=== PATIENT | male | born 1935 | race Caucasian/White ===

== ENCOUNTER 2017-09-22 08:25 | Emergency (ER) | payer OTHER ==
[~2017-09-22] VITALS: Ht 157.5 cm; Wt 70.1 kg
[2017-09-22 08:30] VITALS: Ht 157.5 cm; Wt 70.1 kg
--- NOTE | 2017-09-22 09:00 | EMERGENCY ROOM VISIT NOTE ---
History Report prepared by Robert: Brandin Schmitz Under the Supervision of: Dr. Papo Najera D.O. First contact with patient: 08:29 Chief Complaint: LACERATION/CUT (SUT/DERMABOND) Stated Complaint: FALL/LACERATION ON EAR History of Present Illness The patient is an 82 year old male who presents to the Emergency Room with complaints of constant bleeding to the right ear beginning prior to arrival. He currently rates his discomfort a 1/10 in severity. The patient states he fell out of bed and hit his ear on his dresser. He reports he takes a daily aspirin, and his tetanus shot is up to date. The patient notes he did not hit any other part of his body or loss consciousness. He uses a walker to get around. He denies a history of smoking. Source of History: patient Onset: prior to arrival Position: ear (right) Symptom Intensity: 1/10 Quality: other (bleeding) Timing: constant Note: Denies: hitting any other part of his body, taking a blood thinner other than aspirin, a history of smoking Review of Systems See HPI for pertinent positives & negatives. A total of 6 systems reviewed and were otherwise negative. Past Medical & Surgical Medical Problems: (1) Diabetes Family History Cancer Diabetes mellitus Lung disease Social History Smoking Status: Never Smoker Alcohol Use: none Occupation Status: retired Allergies Uncoded Allergies: IVP (Adverse Reaction, WARM FEELING, 07/18/12) Physical Exam Vital Signs Date Time Temp Pulse Resp B/P (MAP) Pulse Ox O2 Delivery O2 Flow Rate FiO2 09/22/17 08:30 93 16 137/91 96 Room Air Physical Exam CONSTITUTIONAL/VITAL SIGNS: Reviewed / noted above. GENERAL: Non-toxic in appearance. INTEGUMENTARY: Warm, dry, and [place]. HEAD: Normocephalic. EYES: without scleral icterus or trauma. ENT/OROPHARYNX: clear and moist. 2.6 cm laceration involving the right ear scaphoid fossa and helix LYMPHADENOPATHY/NECK: Is supple without lymphadenopathy or meningismus. EXTREMITIES: Warm and well perfused. NEUROLOGICAL: Intact without focal deficits. PSYCHIATRIC: normal affect. MUSCULOSKELETAL: Normally developed with good muscle tone. Medical Decision & Procedures Procedure Location: Right ear Total length: 2.6 cm Complexity: simple Verbal consent was obtained after the risks and benefits were explained, including but not limited to bleeding, scarring, infection, pain, and bone/joint /nerve damage. At this time, the risks of the procedure are less than the risks of NOT performing the procedure. A time out was taken and the correct patient and site identified. 5.0 absorbable vicryl continuous suture was used to approximate the right ear laceration/avulsion. Approximately 8 throws were used with good approximation of the wound. Bacitracin was applied. A sterile dressing was applied. Detailed wound care instructions and signs and symptoms of infection reviewed with the patient and his brother. No complications and the patient tolerated the procedure well. ED Course 829: Previous medical records were reviewed. The patient was evaluated in room A10. A complete history and physical examination was performed. A laceration repair was performed. Please refer to the procedure note for more information. After the laceration, I discussed the results and findings with the patient. He verbalized agreement of the treatment plan. The patient was discharged home. Medical Decision Differential includes close head injury, intracranial bleed, facial trauma, cervical spine trauma, chest and thoracic trauma, abdominal and intra-abdominal trauma, spine neurologic trauma, extremity trauma. This is an 82-year-old male who presents to the ED with a chief complaint of a right ear laceration. The patient states that he was getting out of bed and struck his right ear on a and table. This caused a laceration. It occurred around 2 AM, 7 hours ago. He tried to control the bleeding but was unable to do so. His evaluation reveals an avulsion of the upper ear in the scaphoid fossa and also involves the superior helix. The area of the scaphoid fossa was an avulsion. The skin was replaced over the avulsed area and the wound was approximated with a 5.0 absorbable Vicryl suture because of the confined area. Hemostasis was achieved and a topical antibiotic and dressing conform to the fossa was placed as well as a head dressing to compress the wound in order to avoid hematoma development. The patient was felt to be stable for discharge. He was told to have this rechecked in about one week and any sutures that are in place could be removed. As they're absorbable, if any are difficult to remove, they will dissolve. Medication Reconcilliation Current Medication List: was personally reviewed by me Blood Pressure Screening Patient's blood pressure: Normal blood pressure Blood pressure disposition: Did not require urgent referral Impression Primary Impression: Ear lobe laceration Scribe Attestation The scribe's documentation has been prepared under my direction and personally reviewed by me in its entirety. I confirm that the note above accurately reflects all work, treatment, procedures, and medical decision making performed by me. Departure Information Dispostion Home / Self-Care Referrals Jasmine Elizabeth D.O. (PCP) Forms HOME CARE DOCUMENTATION FORM, IMPORTANT VISIT INFORMATION Patient Instructions My [facility] Additional Instructions Follow-up with your doctor for further care and evaluation in 1-2 days. Return to the emergency department for worsening or new symptoms or any concerns. You have been examined and treated today on an emergency basis only. This is not a substitute for, or an effort to provide, complete comprehensive medical care. It is impossible to recognize and treat all injuries or illnesses in a single emergency department visit. It is therefore important that you follow up closely with your doctor. Call as soon as possible for an appointment. Have sutures evaluated and removed in 7-10 days. Return for any concerns for infection, swelling, increased pain, fevers or other concerns.
[2017-09-22 09:25] VITALS: BP 119/77; PULSE 78; O2SAT 100
== END 2017-09-22 09:26 | disposition home or self-care (01) ==
LOC: C.EDB 08:26 → C.EDA 09:26
DX: S01.311A Laceration without foreign body of right ear, initial encounter (principal); W06.XXXA Fall from bed, initial encounter; W22.8XXA Striking against or struck by other objects, initial encounter; E11.9 Type 2 diabetes mellitus without complications; Z83.3 Family history of diabetes mellitus; Z79.82 Long term (current) use of aspirin

== ENCOUNTER 2021-08-10 22:25 | Inpatient (IN) ==
[2021-08-10] MEDS ORDERED: SODIUM CHLORIDE 0.9% 1000ML 500 ML IV ONE (22:43)
[2021-08-10 23:04] LABS: Basophils # (auto) 0.02 K/uL (0-0.2); Basophils % (auto) 0.2 %; Eosinophils # (auto) 0.13 K/uL (0-0.5); Eosinophils % (auto) 1.3 %; Hematocrit (blood only) 36.9 % (42-52); Hemoglobin 11.6 g/dL (14.0-18.0); Immature Granulocytes # (auto) 0.01 K/uL (0.00-0.02); Immature Granulocytes % (auto) 0.1 %; Lymphocytes % (auto) 13.3 %; Mean Corpuscular Hemoglobin 29.3 pg (25-34); Mean Corpuscular Hgb Conc 31.4 g/dL (32-36); Mean Corpuscular Volume 93.2 fL (80-100); Mean Platelet Volume 11.9 fL (7.4-10.4); Monocytes # (auto) 0.69 K/uL (0.11-0.59); Monocytes % (auto) 7.1 %; Neutrophils # (auto) 7.59 K/uL (1.4-6.5); Platelet Count 197 K/uL (130-400); RDW Standard Deviation 51.8 fL (36.4-46.3); Red Blood Count 3.96 M/uL (4.7-6.1); White Blood Count 9.74 K/uL (4.8-10.8)
[2021-08-10 23:07] LABS: iSTAT Hemoglobin 11.9 g/dl (14.0-18.0); iSTAT Ionized Calcium 1.16 mmol/l (1.12-1.32); iSTAT Potassium 3.9 mmol/L (3.3-5.0)
[2021-08-10 23:16] LABS: Partial Thromboplastin Time 25.9 Seconds (21.0-31.0); Prothrombin Time 10.4 Seconds (9.0-12.0)
[2021-08-10 23:21] LABS: Albumin Level 3.4 gm/dl (3.4-5.0); BUN Creatinine Ratio 16.4 (10-20); Calcium 8.6 mg/dl (8.5-10.1); Creatinine Clr Calc Pharmacy 41.9 ml/min; Est GFR (African American) 73.3 ml/min; Est GFR (Non-African American) 63.2 ml/min; Magnesium 2.1 mg/dl (1.8-2.4)
--- NOTE | 2021-08-10 23:21 | Emergency Department Note ---
History of Present Illness General Chief complaint: Weakness Stated complaint: sore throat, weakness Time Seen by Provider: 08/10/21 22:33 History of Present Illness This 86-year-old presents to the ER complaining of generalized weakness with difficulty walking Location: Generalized Quality: Weak Severity: Moderate. Duration: This morning Timing: This morning Context: Patient and family were concerned and sent him in Modifying factors: better with rest; worse with activity Patient was at a restaurant this morning and collapsed. He states he feels very weak and cannot walk. This is new for him. Family noticed some slurred speech this morning and left-sided facial droop. They sent him in nail greater than 12 hours later for his ongoing symptoms. Apparently he was too weak at home to get out of his chair and the nephew was concerned and they called EMS. Patient denies chest pain, dyspnea, fevers, headache, flulike illness. Patient states his right leg is chronically swollen and this is unchanged. No history of CVA heart attack or heart failure. Home Medications Medication Instructions Recorded Confirmed Type aspirin 81 mg tablet,delayed 81 mg PO DAILY 08/11/21 08/11/21 History release atorvastatin 10 mg tablet 10 mg PO DAILY 08/11/21 08/11/21 History docusate sodium 100 mg capsule 100 mg PO DAILY 08/11/21 08/11/21 History (Colace) erythromycin 5 mg/gram (0.5 %) eye 1 applic OPHTHALMIC (EYE) HS PRN 08/11/21 08/11/21 History ointment famotidine 40 mg tablet 40 mg PO DAILY 08/11/21 08/11/21 History furosemide 40 mg tablet 40 mg PO DAILY 08/11/21 08/11/21 History gabapentin 300 mg capsule 300 mg PO BID 08/11/21 08/11/21 History ketoconazole 2 % shampoo 1 applic TOPICAL .Q3DAYS 08/11/21 08/11/21 History ketoconazole 2 % topical cream 1 applic TOPICAL BID PRN 08/11/21 08/11/21 History meloxicam 15 mg tablet 15 mg PO DAILY 08/11/21 08/11/21 History metformin 1,000 mg tablet 1,000 mg PO UD 08/11/21 08/11/21 History metoprolol tartrate 25 mg tablet 12.5 mg PO BID 11/22/21 11/22/21 History Allergies Allergy/AdvReac Type Severity Reaction Status Date / Time IVP AdvReac Unknown WARM Uncoded 08/11/21 01:46 FEELING Past Med/Surg History Medical History Diabetes High blood pressure Surgical History (Updated 08/10/21 @ 23:16 by Taina Tinsley PA-C) History of appendectomy Social History Smoking Status: Never smoker Feels Safe at Home: Yes Review of Systems A total of 10 systems reviewed and were otherwise negative Physical Exam Vital Signs Vital Signs - 24 hr 08/10/21 22:33 08/10/21 23:20 08/11/21 00:00 Temperature 37 C Temperature Source Oral Pulse Rate 102 H 84 89 Pulse Rate from SpO2 Sensor 83 89 Pulse Rhythm Regular Pulse Strength Normal Respiratory Rate 18 20 19 Respiratory Effort / Characteristics Non-Labored Spontaneous Respiratory Depth Normal Respiratory Pattern Regular Blood Pressure 152/81 H 138/82 152/86 H Blood Pressure Mean 104 100 108 Blood Pressure Position Sitting Pulse Oximetry 94 91 91 Oxygen Delivery Method Room Air Sepsis Recent Fever Within 48 Hours No Sepsis New/Unexplained Change in Mental Status N/A Sepsis Action Taken by Nursing No Action Required 08/11/21 00:10 08/11/21 00:20 08/11/21 00:30 Temperature Temperature Source Pulse Rate 93 H 90 81 Pulse Rate from SpO2 Sensor 91 H 88 82 Pulse Rhythm Pulse Strength Respiratory Rate 21 20 16 Respiratory Effort / Characteristics Respiratory Depth Respiratory Pattern Blood Pressure Blood Pressure Mean Blood Pressure Position Pulse Oximetry 91 91 93 Oxygen Delivery Method Sepsis Recent Fever Within 48 Hours Sepsis New/Unexplained Change in Mental Status Sepsis Action Taken by Nursing 08/11/21 00:40 08/11/21 01:00 08/11/21 01:30 Temperature Temperature Source Pulse Rate 82 76 84 Pulse Rate from SpO2 Sensor 83 77 84 Pulse Rhythm Pulse Strength Respiratory Rate 23 19 21 Respiratory Effort / Characteristics Respiratory Depth Respiratory Pattern Blood Pressure 131/72 Blood Pressure Mean 91 Blood Pressure Position Pulse Oximetry 92 92 93 Oxygen Delivery Method Room Air Sepsis Recent Fever Within 48 Hours Sepsis New/Unexplained Change in Mental Status Sepsis Action Taken by Nursing 08/11/21 01:42 08/11/21 01:50 08/11/21 02:00 Temperature Temperature Source Pulse Rate 88 79 77 Pulse Rate from SpO2 Sensor Pulse Rhythm Pulse Strength Respiratory Rate 24 14 1 L Respiratory Effort / Characteristics Respiratory Depth Respiratory Pattern Blood Pressure 130/68 Blood Pressure Mean 88 Blood Pressure Position Pulse Oximetry Oxygen Delivery Method Sepsis Recent Fever Within 48 Hours Sepsis New/Unexplained Change in Mental Status Sepsis Action Taken by Nursing 08/11/21 02:10 08/11/21 02:20 08/11/21 02:30 Temperature Temperature Source Pulse Rate 75 76 88 Pulse Rate from SpO2 Sensor Pulse Rhythm Pulse Strength Respiratory Rate 17 16 16 Respiratory Effort / Characteristics Respiratory Depth Respiratory Pattern Blood Pressure Blood Pressure Mean Blood Pressure Position Pulse Oximetry Oxygen Delivery Method Sepsis Recent Fever Within 48 Hours Sepsis New/Unexplained Change in Mental Status Sepsis Action Taken by Nursing VITALS: Vitals are noted on the nurse's note and reviewed by myself. Vital signs stable. GENERAL: Pleasant elderly male answering questions appropriately in no acute distress, nondiaphoretic SKIN: right lower leg slightly more swollen than left unchanged per patient, the rest of The skin was without rashes, erythema, edema, or bruising. There is no tenting of the skin. Capillary reflex less than 2 seconds. HEAD: Normocephalic atraumatic. EARS: External auditory canals clear EYES: Pupils equal round and reactive to light and accommodation. Conjunctivae without injection, sclerae without icterus. Extraocular movements intact. NOSE: Patent, turbinates without inflammation or discharge. MOUTH: Mucous membranes moist. Pharynx without erythema or exudate. Uvula midline. Airway patent. Tongue does not deviate. NECK: Supple without nuchal rigidity. No lymphadenopathy. No thyromegaly. Cervical spine is nontender. No JVD. HEART: Regular rate and rhythm LUNGS: Clear to auscultation bilaterally without wheezes, rales or rhonchi. No retractions or accessory muscle use. ABDOMEN: Positive bowel sounds x 4. Normal tympanic percussion. Soft, nontender, without masses or organomegaly. Dozier sign negative. No guarding or rebound tenderness. No CVA tenderness MUSCULOSKELETAL: No muscle atrophy, noted. NEURO: Patient was alert and oriented to person place and time. Normal sensation to light and sharp touch. Left-sided mild nasolabial droop, no other deficits noted. 5-5 strength throughout. Cerebellar exam intact. No pronator drift. No other focal neurological deficits. Course Administered Medications Dextrose (D5w) 500 mls @ 100 mls/hr IV .Q5H STA Stop: 08/11/21 06:04 Last Admin: 08/11/21 01:28 Dose: 100 mls/hr Documented by: [id number] Discontinued Medications Sodium Chloride (Nss 1000ml) 500 mls @ 999 mls/hr IV .Q31M ONE Stop: 08/10/21 23:13 Last Infusion: 08/10/21 23:35 Dose: 0 mls/hr Documented by: [id number] Admin: 08/10/21 23:00 Dose: 999 mls/hr Documented by: [id number] Ioversol (Optiray 320 125ml) 110 ml IV ONCE ONE Stop: 08/11/21 01:05 Last Admin: 08/11/21 01:05 Dose: 1 ml Documented by: [id number] Medical Decision Making Medical Records Attestation: I reviewed the patient's medical records. Home Medications Current Medication List: was personally reviewed by me Laboratory Data Attestation: I reviewed the patient's lab results. Result diagrams: 08/10/21 22:48 08/10/21 22:48 Lab Results 08/10/21 08/10/21 08/10/21 Range/Units 22:48 22:48 22:48 WBC 9.74 (4.8-10.8) K/uL RBC 3.96 L (4.7-6.1) M/uL Hgb 11.6 L (14.0-18.0) g/dL POC Hgb (14.0-18.0) g/dl Hct 36.9 L (42-52) % POC Hct (42-52) % MCV 93.2 (80-100) fL MCH 29.3 (25-34) pg MCHC 31.4 L (32-36) g/dL RDW Std Deviation 51.8 H (36.4-46.3) fL RDW Coeff of Carmen 15.0 H (11.5-14.5) % Plt Count 197 (130-400) K/uL MPV 11.9 H (7.4-10.4) fL Immature Gran % (Auto) 0.1 % Neut % (Auto) 78.0 % Lymph % (Auto) 13.3 % Gonzales % (Auto) 7.1 % Eos % (Auto) 1.3 % Baso % (Auto) 0.2 % Neut # (Auto) 7.59 H (1.4-6.5) K/uL Lymph # (Auto) 1.30 (1.2-3.4) K/uL Gonzales # (Auto) 0.69 H (0.11-0.59) K/uL Eos # (Auto) 0.13 (0-0.5) K/uL Baso # (Auto) 0.02 (0-0.2) K/uL Immature Gran # (Auto) 0.01 (0.00-0.02) K/uL PT 10.4 (9.0-12.0) Seconds INR 1.0 (0.9-1.1) APTT 25.9 (21.0-31.0) Seconds PTT Ratio 1.0 POC Sodium (135-144) mmol/L Sodium 155 H (136-145) mmol/L POC Potassium (3.3-5.0) mmol/L Potassium 4.0 (3.5-5.1) mmol/L POC Chloride (101-112) mmol/L Chloride 120 H (98-107) mmol/L Carbon Dioxide 26 (21-32) mmol/L POC Total CO2 (24-31) mmol/L Anion Gap 9.0 (3-11) POC Anion Gap (16-25) mmol/L POC BUN (7-18) mg/dl BUN 17 (7-18) mg/dl Creatinine 1.06 (0.6-1.4) mg/dl POC Creatinine (0.6-1.3) mg/dl Est Cr Clr Drug Dosing 41.9 ml/min Est GFR ( Amer) 73.3 ml/min Est GFR (Non-Af Amer) 63.2 ml/min BUN/Creatinine Ratio 16.4 (10-20) Glucose 136 H (70-99) mg/dl POC Glucose (other) (70-99) mg/dl Calcium 8.6 (8.5-10.1) mg/dl POC Ioniz Calcium Aaron (1.12-1.32) mmol/l Magnesium 2.1 (1.8-2.4) mg/dl Total Bilirubin 0.5 (0.2-1) mg/dl AST 10 L (15-37) U/L ALT 18 (12-78) U/L Alkaline Phosphatase 79 (45-117) U/L Troponin I 0.095 H* (0-0.045) ng/ml Total Protein 7.0 (6.4-8.2) gm/dl Albumin 3.4 (3.4-5.0) gm/dl Globulin 3.6 (2.5-4.0) gm/dl Albumin/Globulin Ratio 0.9 (0.9-2) TSH 2.120 (0.300-4.500) uIu/ml Urine Color Urine Appearance (Clear) Urine pH (4.5-7.5) Ur Specific [place] (1.000-1.030) Urine Protein (Negative) Urine Glucose (UA) (Negative) Urine Ketones (Negative) Urine Blood (Negative) Urine Nitrite (Negative) Urine Bilirubin (Negative) Urine Urobilinogen (Negative) Ur Leukocyte Esterase (Negative) SARS-CoV-2, RNA, NAAT (NEGATIVE) 08/10/21 08/11/21 08/11/21 Range/Units 22:54 00:17 01:11 WBC (4.8-10.8) K/uL RBC (4.7-6.1) M/uL Hgb (14.0-18.0) g/dL POC Hgb 11.9 L (14.0-18.0) g/dl Hct (42-52) % POC Hct 35 L (42-52) % MCV (80-100) fL MCH (25-34) pg MCHC (32-36) g/dL RDW Std Deviation (36.4-46.3) fL RDW Coeff of Carmen (11.5-14.5) % Plt Count (130-400) K/uL MPV (7.4-10.4) fL Immature Gran % (Auto) % Neut % (Auto) % Lymph % (Auto) % Gonzales % (Auto) % Eos % (Auto) % Baso % (Auto) % Neut # (Auto) (1.4-6.5) K/uL Lymph # (Auto) (1.2-3.4) K/uL Gonzales # (Auto) (0.11-0.59) K/uL Eos # (Auto) (0-0.5) K/uL Baso # (Auto) (0-0.2) K/uL Immature Gran # (Auto) (0.00-0.02) K/uL PT (9.0-12.0) Seconds INR (0.9-1.1) APTT (21.0-31.0) Seconds PTT Ratio POC Sodium 156 H* (135-144) mmol/L Sodium (136-145) mmol/L POC Potassium 3.9 (3.3-5.0) mmol/L Potassium (3.5-5.1) mmol/L POC Chloride 116 H (101-112) mmol/L Chloride (98-107) mmol/L Carbon Dioxide (21-32) mmol/L POC Total CO2 25 (24-31) mmol/L Anion Gap (3-11) POC Anion Gap 20.0 (16-25) mmol/L POC BUN 18 (7-18) mg/dl BUN (7-18) mg/dl Creatinine (0.6-1.4) mg/dl POC Creatinine 1.0 (0.6-1.3) mg/dl Est Cr Clr Drug Dosing ml/min Est GFR ( Amer) ml/min Est GFR (Non-Af Amer) ml/min BUN/Creatinine Ratio (10-20) Glucose (70-99) mg/dl POC Glucose (other) 138 H (70-99) mg/dl Calcium (8.5-10.1) mg/dl POC Ioniz Calcium Aaron 1.16 (1.12-1.32) mmol/l Magnesium (1.8-2.4) mg/dl Total Bilirubin (0.2-1) mg/dl AST (15-37) U/L ALT (12-78) U/L Alkaline Phosphatase (45-117) U/L Troponin I (0-0.045) ng/ml Total Protein (6.4-8.2) gm/dl Albumin (3.4-5.0) gm/dl Globulin (2.5-4.0) gm/dl Albumin/Globulin Ratio (0.9-2) TSH (0.300-4.500) uIu/ml Urine Color Yellow Urine Appearance Clear (Clear) Urine pH 8.0 H (4.5-7.5) Ur Specific [place] 1.028 (1.000-1.030) Urine Protein Negative (Negative) Urine Glucose (UA) Negative (Negative) Urine Ketones Negative (Negative) Urine Blood Negative (Negative) Urine Nitrite Negative (Negative) Urine Bilirubin Negative (Negative) Urine Urobilinogen Negative (Negative) Ur Leukocyte Esterase Negative (Negative) SARS-CoV-2, RNA, NAAT NEGATIVE (NEGATIVE) Imaging Data Attestation: I personally reviewed and interpreted this imaging study as follows: Blood Pressure Additional Comments: MDM Narrative Prior records/ancillary studies reviewed and summarized above. Nursing notes reviewed. Additional history obtained from nursing. The patient's history was concerning for generalized weakness. Differential diagnosis: Etiologies such as metabolic, infection, hypo/hyperglycemia, electrolyte abnormalities, cardiac sources, intracerebral event, toxicologic, neurologic, as well as others were entertained. Physical examination: As above. ER treatment provided: IV Lock An order was placed for continuous cardiac monitoring. The monitor shows a rate of 60-1 20 with a sinus rhythm. IV fluids On reassessment the patient felt better. Diagnostics interpretation by me: #1 ECG: Ordered for weakness EKG: Normal sinus, normal intervals, ST depression in the lateral leads, rate of 99. Impression normal sinus rhythm with ST depression in the lateral leads new from prior EKG from 2007 per my interpretation. I think arrhythmia is unlikely. EKG shows no interval abnormalities such as QT prolongation or WPW. There are no findings to suggest Brugada syndrome. Cardiac monitoring in the emergency department reveals no tachycardic or bradycardic dysrhythmia. Hypertrophic cardiomyopathy was considered but there are no clear historical elements pointing toward this. EKG is not suggestive. The QRS voltage is not extremely large and there are no suggestive Q waves. #2 EKG ordered for positive troponin EKG: Normal sinus, poor baseline, no acute ST-T wave changes, rate of 98. Impression left anterior fascicular block sinus rhythm interpreted by myself I think arrhythmia is unlikely. EKG shows no interval abnormalities such as QT prolongation or WPW. There are no findings to suggest Brugada syndrome. Cardiac monitoring in the emergency department reveals no tachycardic or bradycardic dysrhythmia. Hypertrophic cardiomyopathy was considered but there are no clear historical elements pointing toward this. EKG is not suggestive. The QRS voltage is not extremely large and there are no suggestive Q waves. The labs revealed positive troponin Mild anemia Imaging studies: CT HEAD: No intracranial hemorrhage, mass effect or midline shift. There is no abnormal extra axial fluid collection. No evidence of acute infarct. 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 The visualized paranasal sinuses and mastoid air cells are clear. No fracture. Radiologist: Brie Pulido MD CTA HEAD: No significant stenosis, occlusion, aneurysm or dissection. Radiologist: Brie Pulido MD CTA NECK: No significant stenosis, occlusion, aneurysm or dissection. Radiologist: Brie Pulido MD Study ready at 00:47 and initial results transmitted at 00:54 NIH of 1 Consultation: A consultation was placed with the hospitalist. The case was discussed and diagnostics were reviewed. The patient was evaluated in the ER for further treatment. Exam and history seem consistent with CVA symptoms and ambulatory dysfunction with positive troponin Imaging was negative. Positive troponin. No chest pain. Medicine was consulted. He will be admitted. By the evaluation outlined above emergent etiologies such as infection, electrolyte abnormalities, toxologic, metabolic, as well as others were deemed relatively unlikely. The pt informed about the findings as listed above. All questions were answered and pleased with the treatment. The chart was completed utilizing [employer] Speech voice recognition software. Grammatical errors, random word insertions, pronoun errors, and incomplete sentences are an occassional consequence of this system due to software limitations, ambient noise, and hardware issues. Any formal questions or concerns about the content, text, or information contained within the body of this dictation should be directly addressed to the physician internal medicine physician assistant for clarification. Impression & Plan Weakness, Elevated troponin, Symptoms of cerebrovascular accident (CVA) Discharge Plan Visit Data Chief Complaint: Weakness Stated Complaint: sore throat, weakness ED Provider: Jaun Houston ED Midlevel Provider: Taina Tinsley Discharge Problem: Weakness, Elevated troponin, Symptoms of cerebrovascular accident (CVA) Patient Disposition: Admitted As Inpatient Condition: Fair Forms Stand Alone Forms: My [employer] Prescriptions Prescriptions: No Action furosemide 40 mg tablet 40 mg PO DAILY RF: 0 ketoconazole 2 % shampoo 1 applic TOPICAL .Q3DAYS RF: 0 atorvastatin 10 mg tablet 10 mg PO DAILY RF: 0 meloxicam 15 mg tablet 15 mg PO DAILY RF: 0 famotidine 40 mg tablet 40 mg PO DAILY RF: 0 aspirin [Aspir-Low] 81 mg Tablet,Delayed Release (Dr/Ec) 81 mg PO DAILY RF: 0 erythromycin 5 mg/gram (0.5 %) Ointment 1 applic OPHTHALMIC (EYE) HS PRN (Reason: ..) RF: 0 metformin 1,000 mg tablet 1,000 mg PO UD RF: 0 docusate sodium [Colace] 100 mg Capsule 100 mg PO DAILY RF: 0 gabapentin 300 mg capsule 300 mg PO BID RF: 0 ketoconazole 2 % cream 1 applic TOPICAL BID PRN (Reason: FLARE UPS) RF: 0 metoprolol tartrate 25 mg tablet 12.5 mg PO BID RF: 0 Referrals Referrals: Jasmine Elizabeth DO [Primary Care Provider] -
[2021-08-10 23:30] LABS: Albumin Globulin Ratio 0.9 (0.9-2); Bilirubin,Total 0.5 mg/dl (0.2-1); Globulin 3.6 gm/dl (2.5-4.0); Troponin I 0.095 ng/ml (0-0.045)
[2021-08-11 00:39] LABS: Appearance Urine Clear (Clear); Bilirubin Urine Negative (Negative); Blood Urine Negative (Negative); Color Urine Yellow; Glucose Urine UA Negative (Negative); Ketones Urine Negative (Negative); Leukocyte Esterase Urine Negative (Negative); Nitrite Urine Negative (Negative); Protein Urine Negative (Negative); Specific Gravity Urine 1.028 (1.000-1.030); Urobilinogen Urine Negative (Negative)
[2021-08-11] MEDS ORDERED: OPTIRAY 320 125ml IV ONE (01:04)
[2021-08-11] MEDS ORDERED: D5W AND 1/2NSS 1,000 ML IV STA (01:05)
[2021-08-11] MEDS ORDERED: DEXTROSE 5% 500 ML IV STA (01:05)
[2021-08-11 01:23] LABS: Thyroid Stimulating Hormone 2.12 uIu/ml (0.300-4.500)
--- NOTE | 2021-08-11 02:09 | History & Physical Report ---
Date of Service August 11, 2021 Assessment & Plan (1) Dysarthria: Plan: w L facial droop Possible ischemic CVA Possible aspirin failure Troponin elevation secondary to the above hx CAD as per records hypertension, slight elevated hyperlipidemia on statin Rx hypernatremia DM2 on oral medications, well-controlled as of recent hemoglobin A1c of 5.26 November 2020 neuropathy as per records Acute on chronic anemia, hemoglobin drop from baseline from 2013 Possibly from hemorrhoidal bleed Tremors, Parkinsonian features noted on outpatient neurology documentation from 2009 aspiration risk as per records OBS Medical telemetry Neurochecks MRI brain, TTE for work-up for possible stroke Neurology consult dysarthria, possible CVA Permissive hypertension until acute stroke ruled out Follow troponin, Cardiology consult if with significant given progression Anemia work-up, transfuse PRBC if hemoglobin less than 8 and or for symptomatic anemia Antiplatelet Rx (aspirin and Plavix for possible aspirin failure) if hemoglobin stable Continue statin Rx Dextrose water for hypernatremia, follow serum sodium, may need nephrology consultation Basal insulin, ISS BG goal 1 10-1 40, update hemoglobin A1c DVT prophylaxis. SCDs Re: Hematochezia DNR Patient requests for his brother to be updated of plan of care. Mr. Brian Phan, contact #[phone]. Text document was generated using [employer] voice recognition software. It may contain grammatical or spelling errors. Kindly contact undersigned for clarification of any documentation item in question. History of Present Illness Chief Complaint: Weakness, slurred speech, left facial droop as per records Primary Care Provider: Jasmine Elizabeth DO History obtained from patient and records. Patient is a fair historian. Medical history significant for CAD, hypertension, hyperlipidemia, DM2 on oral medications, neuropathy as per records, chronic anemia (baseline hemoglobin 12- 13 as of 2013), aspiration risk as per records. Patient had a fall at home yesterday. Feeling weaker than usual. Patient noted to have slurred speech and left-sided facial droop by family yesterday morning. Patient denies headache, chest pain, shortness of breath. No abdominal pain. Episodic hematochezia from constipation, possible hemorrhoids as per patient. Patient sent to the ER for evaluation last night after patient noted to be too weak to get out of chair. 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 Allergies Allergy/AdvReac Type Severity Reaction Status Date / Time IVP AdvReac Unknown WARM Uncoded 08/11/21 01:46 FEELING Home Medications Medication Instructions Recorded Confirmed Type aspirin 81 mg tablet,delayed 81 mg PO DAILY 08/11/21 08/11/21 History release atorvastatin 10 mg tablet 10 mg PO DAILY 08/11/21 08/11/21 History docusate sodium 100 mg capsule 100 mg PO DAILY 08/11/21 08/11/21 History (Colace) erythromycin 5 mg/gram (0.5 %) eye 1 applic OPHTHALMIC (EYE) HS PRN 08/11/21 08/11/21 History ointment famotidine 40 mg tablet 40 mg PO DAILY 08/11/21 08/11/21 History furosemide 40 mg tablet 40 mg PO DAILY 08/11/21 08/11/21 History gabapentin 300 mg capsule 300 mg PO BID 08/11/21 08/11/21 History ketoconazole 2 % shampoo 1 applic TOPICAL .Q3DAYS 08/11/21 08/11/21 History ketoconazole 2 % topical cream 1 applic TOPICAL BID PRN 08/11/21 08/11/21 History meloxicam 15 mg tablet 15 mg PO DAILY 08/11/21 08/11/21 History metformin 1,000 mg tablet 1,000 mg PO UD 08/11/21 08/11/21 History metoprolol tartrate 25 mg tablet 12.5 mg PO BID 08/11/21 08/11/21 History Past Med/Surg History Medical History Diabetes High blood pressure Surgical History History of appendectomy Social History Smoking Status: Never smoker Hx Alcohol Use: No Hx Substance Use: No Preferred Language: Yakut Communication Ability: Effective Children'S Author Required: No Beliefs That Will Affect Care: None Current Living Situation: Alone Other Information That Helps Us Care for You: No Feels Safe at Home: Yes Safety Concerns: Feels Safe At This Time Assistive Devices: Walker Review of Systems Review of Systems: As per HPI, all 10 systems reviewed, all other ROS negative Physical Exam Physical Exam: GENERAL: Comfortable, pleasant, no respiratory distress SKIN: Pallor, warm HEENT: Partial alopecia, pale palpebral conjunctivae, no ptosis, facial asymmetry, dry buccal mucosa NECK : Supple, no tenderness CHEST : CTA, no tenderness HEART : RRR, no obvious murmurs ABDOMEN: Some distention, nontender RECTAL : Intact sphincter, brown stool admixed with blood (FOBT positive) EXTREMITIES : Chronic RLE swelling, no LE tenderness, no other conspicuous deformities noted NEUROLOGIC : Coherent, slightly hard of hearing, flattened right nasolabial fold, dysarthric, pill-rolling tremors, gait and stance not assessed Results & Data Results & Data ([facility]) Vital Signs (Past 12 Hours) Vital Signs Temp Pulse Resp BP Pulse Ox 08/11/21 00:40 82 23 92 08/11/21 00:30 81 16 93 08/11/21 00:20 90 20 91 08/11/21 00:10 93 H 21 91 08/11/21 00:00 89 19 152/86 H 91 08/10/21 23:20 84 20 138/82 91 08/10/21 22:33 37 C 102 H 18 152/[address] head initial read: No intracranial hemorrhage, mass effect or midline shift. There is no abnormal extra axial fluid collection. No evidence of acute infarct. 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 The visualized paranasal sinuses and mastoid air cells are clear. No fracture. CTA head and neck initial read: No significant stenosis, occlusion, aneurysmor dissection. EKG as per my interpretation : Rate 100, NSR, LAD, LAFB, T wave flattening inferior leads, ST depression anterolateral leads
[2021-08-11 03:10] LABS: Lyme Ab IgM w/WB Rflx Negative (Negative)
[2021-08-11] MEDS ORDERED: GLUCAGON FOR INJ 1 MG VIAL SQ PRN (03:12)
[2021-08-11] MEDS ORDERED: PROMETHAZINE HCL 6.25 MG in SODIUM CHLORIDE 0.9% 50 ML IV PRN (03:12)
[2021-08-11] MEDS ORDERED: GLUCOSE 10 TABS/TUBE PO PRN (03:12)
[2021-08-11] MEDS ORDERED: DEXTROSE 50% 50 ML SYRINGE IV PRN (03:12)
[2021-08-11] MEDS ORDERED: ERYTHROMYCIN OP OINT 5 MG/GM 3.5 GM TUBE OP PRN (03:12)
[2021-08-11] MEDS ORDERED: PHARMACIST DISCHARGE MED REC CONSULT PRN (03:12)
[2021-08-11] MEDS ORDERED: CARBOHYDRATES FOR HYPOGLYCEMIA PO PRN (03:12)
[2021-08-11] MEDS ORDERED: ACETAMINOPHEN 325 MG TAB PO PRN (03:12)
[2021-08-11] MEDS ORDERED: GLUCOSE 40% GEL 15 GM TUBE PO PRN (03:12)
[2021-08-11 03:16] LABS: Lyme Ab IgG w/WB Rflx Positive (Negative)
[2021-08-11] MEDS: INSULIN ASPART 100 UNITS/ML 3 ML PEN SC SCH ×5 (03:30→20:23)
[2021-08-11 05:47] LABS: Eosinophils % (auto) 1.4 %; Hematocrit (blood only) 36.3 % (42-52); Hemoglobin 11.4 g/dL (14.0-18.0); Immature Granulocytes # (auto) 0.01 K/uL (0.00-0.02); Immature Granulocytes % (auto) 0.1 %; Lymphocytes # (auto) 0.92 K/uL (1.2-3.4); Mean Corpuscular Hemoglobin 29.3 pg (25-34); Mean Corpuscular Hgb Conc 31.4 g/dL (32-36); Mean Corpuscular Volume 93.3 fL (80-100); Mean Platelet Volume 11.9 fL (7.4-10.4); Monocytes # (auto) 0.26 K/uL (0.11-0.59); Monocytes % (auto) 3.7 %; Neutrophils # (auto) 5.77 K/uL (1.4-6.5); Neutrophils % (auto) 81.8 %; Platelet Count 197 K/uL (130-400); RDW Coefficient of Variation 15.2 % (11.5-14.5); RDW Standard Deviation 52.2 fL (36.4-46.3); Red Blood Count 3.89 M/uL (4.7-6.1); Reticulocyte % 1.2 % (0.5-2.0); Reticulocytes # 0.05 10^6/uL (0.02-0.10); White Blood Count 7.06 K/uL (4.8-10.8)
[2021-08-11] MEDS ORDERED: ASPIRIN 300 MG SUPP PR ONE (06:00)
[2021-08-11 06:19] LABS: BUN Creatinine Ratio 15.4 (10-20); Calcium 8.8 mg/dl (8.5-10.1); Creatinine Clr Calc Pharmacy 44.8 ml/min; Est GFR (African American) 79.6 ml/min; Est GFR (Non-African American) 68.7 ml/min; Potassium 3.5 mmol/L (3.5-5.1)
[2021-08-11] MEDS ORDERED: POTASSIUM CHLORIDE 40 MEQ in DEXTROSE 5% 1,000 ML IV ONE (06:23)
[2021-08-11 06:28] LABS: Ferritin 26.3 ng/ml (8-388); Troponin I 1.86 ng/ml (0-0.045)
--- NOTE | 2021-08-11 07:42 | CT Scan Report ---
HEAD & NECK CTA HISTORY: Slurred speech. Weakness. Stroke Like Symptoms TECHNIQUE: Noncontrast CT imaging of the head was performed without contrast. Multiaxial CT images of the head were performed following the intravenous administration of contrast to evaluate the major c erebral vessels. Multiaxial CT images of the neck were also performed following the intravenous admin istration of contrast to evaluate the major cervical vessels. Maximum intensity projection images wer e also obtained. A dose lowering technique was utilized adhering to the principles of ALARA. COMPARISON: Head CT 04/15/2012. FINDINGS: There is no mass, hematoma, midline shift, or acute infarct. Atrophy and microvascular ischemic lisa es are noted. The calvarium and skull base are intact. The paranasal sinuses and mastoid air cells ar e clear. Visualized intracranial internal carotid arteries, distal vertebral arteries, and basilar ar [place] are widely patent. There is no significant stenosis, occlusion, or aneurysm seen within the bila teral ACAs, MCAs, or sales correspondent. Calcified plaque within the bilateral carotid siphons. The major dural haley ous sinuses are patent. The aortic arch and proximal great vessels are widely patent. There is no significant stenosis, occ lusion, or dissection identified within the bilateral common carotid, internal carotid, or vertebral arteries. Mild calcified plaque within the left carotid bifurcation. IMPRESSION: 1. No significant stenosis, occlusion, or aneurysm within the [place]. 2. No significant stenosis, occlusion, or dissection identified within the carotid or vertebral arter ies. 3. No acute intracranial abnormality. ACT 112: Negative or not required by law. Electronically signed by: Reji Roach M.D. 08/11/2021 7:40 AM
--- NOTE | 2021-08-11 07:42 | CT Scan Report ---
HEAD & NECK CTA HISTORY: Slurred speech. Weakness. Stroke Like Symptoms TECHNIQUE: Noncontrast CT imaging of the head was performed without contrast. Multiaxial CT images of the head were performed following the intravenous administration of contrast to evaluate the major c erebral vessels. Multiaxial CT images of the neck were also performed following the intravenous admin istration of contrast to evaluate the major cervical vessels. Maximum intensity projection images wer e also obtained. A dose lowering technique was utilized adhering to the principles of ALARA. COMPARISON: Head CT 04/15/2012. FINDINGS: There is no mass, hematoma, midline shift, or acute infarct. Atrophy and microvascular ischemic lisa es are noted. The calvarium and skull base are intact. The paranasal sinuses and mastoid air cells ar e clear. Visualized intracranial internal carotid arteries, distal vertebral arteries, and basilar ar jackson are widely patent. There is no significant stenosis, occlusion, or aneurysm seen within the bila teral ACAs, MCAs, or economic adviser. Calcified plaque within the bilateral carotid siphons. The major dural haley ous sinuses are patent. The aortic arch and proximal great vessels are widely patent. There is no significant stenosis, occ lusion, or dissection identified within the bilateral common carotid, internal carotid, or vertebral arteries. Mild calcified plaque within the left carotid bifurcation. IMPRESSION: 1. No significant stenosis, occlusion, or aneurysm within the [place]. 2. No significant stenosis, occlusion, or dissection identified within the carotid or vertebral arter ies. 3. No acute intracranial abnormality. ACT 112: Negative or not required by law. Electronically signed by: Reji Roach M.D. 08/11/2021 7:40 AM
--- NOTE | 2021-08-11 07:42 | CT Scan Report ---
HEAD & NECK CTA HISTORY: Slurred speech. Weakness. Stroke Like Symptoms TECHNIQUE: Noncontrast CT imaging of the head was performed without contrast. Multiaxial CT images of the head were performed following the intravenous administration of contrast to evaluate the major c erebral vessels. Multiaxial CT images of the neck were also performed following the intravenous admin istration of contrast to evaluate the major cervical vessels. Maximum intensity projection images wer e also obtained. A dose lowering technique was utilized adhering to the principles of ALARA. COMPARISON: Head CT 04/15/2012. FINDINGS: There is no mass, hematoma, midline shift, or acute infarct. Atrophy and microvascular ischemic lisa es are noted. The calvarium and skull base are intact. The paranasal sinuses and mastoid air cells ar e clear. Visualized intracranial internal carotid arteries, distal vertebral arteries, and basilar ar jackson are widely patent. There is no significant stenosis, occlusion, or aneurysm seen within the bila teral ACAs, MCAs, or media relations intern. Calcified plaque within the bilateral carotid siphons. The major dural haley ous sinuses are patent. The aortic arch and proximal great vessels are widely patent. There is no significant stenosis, occ lusion, or dissection identified within the bilateral common carotid, internal carotid, or vertebral arteries. Mild calcified plaque within the left carotid bifurcation. IMPRESSION: 1. No significant stenosis, occlusion, or aneurysm within the [place]. 2. No significant stenosis, occlusion, or dissection identified within the carotid or vertebral arter ies. 3. No acute intracranial abnormality. ACT 112: Negative or not required by law. Electronically signed by: Reji Roach M.D. 08/11/2021 7:40 AM
[2021-08-11 07:51] LABS: Folate (Folic Acid) > 20.00 ng/ml (>5.38); Vitamin B12 232 pg/ml (193-986)
[2021-08-11 08:06] LABS: Estimated Average Glucose 126 mg/dl
[2021-08-11] MEDS: INSULIN GLARGINE SOLOSTAR 100 UNITS/ML 3 ML PEN SC SCH (09:15)
--- NOTE | 2021-08-11 09:26 | Magnetic Resonance Report ---
MRI OF THE BRAIN WITHOUT CONTRAST CLINICAL HISTORY: Dysarthria. COMPARISON STUDY: MRI of the brain October 26, 2012. Head CT and CTA of the head August 10, 2021. TECHNIQUE: Utilizing a 1.5 Alina magnet and dedicated coil, multiplanar, multiecho imaging of the bra in was performed without IV contrast. FINDINGS: A few small foci of restricted diffusion within the left external capsule/posterior left ba moustapha ganglia measure up to 4 mm. There is no acute hemorrhage. There is no mass effect. Basal cisterns are patent. There are no extra-axial collections. Flow-voids for the major intracranial vessels are present. Note is again made of atrophy and extensive white matter T2 hyperintense foci consistent wit h small vessel disease. Calvarial signal is normal. Small amount of fluid within left mastoid air zain ls is present. IMPRESSION: 1. 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 No acute hemorrhage. No mass effect. 2. White matter T2 hyperintense foci consistent with small vessel disease. Moderate atrophy. ACT 112: Negative or not required by law. Electronically signed by: Dylon Barrientos M.D. 08/11/2021 9:24 AM
--- NOTE | 2021-08-11 09:48 | Cardiology Consultation ---
Date of Consultation August 11, 2021 Assessment & Plan (1) Dysarthria: (2) Weakness: (3) Elevated troponin: (4) Symptoms of cerebrovascular accident (CVA): (5) ASCVD (arteriosclerotic cardiovascular disease): (6) HTN, goal below 130/80: (7) Dyslipidemia, goal LDL below 70: 86 year old male with known underlying coronary artery disease by remote (2006) evaluation (fixed posterior and lateral wall motion abnormality via September 2007 stress test), admitted to [facility] for evaluation of dysarthria and weakness. Marked hypernatremia noted on presentation. Troponin elevated as above. EKG with lateral ST depression. Resting echocardiography this admission is pending. Patient asymptomatic in regards to active/acute/overt cardiopulmonary symptoms. Await resting echocardiography interpretation. Maintain telemetry continuously. Continue aspirin, statin, and beta-mihai therapy. Add ARB therapy if/when needed for additional blood pressure control. Discontinue Meloxicam. Consider Nephrology consultation. Further recommendations pending evaluation by Dr. Shahid, hospitalization course. Supervising Physician Co-Signing Physician Notes Patient seen and examined with Jaun Bradford PA-C. Agree with findings and assessment as above. Echo without wall motion abnormality. Do not believe trop elevation is secondary to myocardial ischemia. Continue outpt medical regimen. History of Present Illness Reason for Consultation: Elevated Troponin Requesting Physician: O[place]er Attending Physician: Alfa History of Present Illness Chantel Phan is an 86 year old male who lives alone in [place]. Wednesday morning he awoke and noticed that his left foot was dragging and that he felt weaker than his norm. He went out to breakfast with his brother Brian who lives in [place] and was noted to have slurred speech and left-sided facial droop, collapsing at the restaurant before eating. No true syncope. Due to ongoing issues, weakness and an inability to get out of the chair, EMS was summoned. Blood pressure was mildly elevated on presentation. Troponin elevated. EKG revealed normal sinus rhythm with left axis deviation, nonspecific ST and T wave abnormality with new ST depression in the laterally leads. Resting echocardiography is pending. Patient admission for further evaluation, possible ischemic CVA, elevated troponin. Additional laboratory work notable for marked hypernatremia. Patient previously followed by Dr. Taya See. In July 2007 he had a resting echocardiogram that revealed a hypokinetic posterior LV wall. Regional left ventricular wall motion was otherwise normal. Qualitative LV ejection Fraction was 50-55%. There was trace mitral regurgitation and trace tricuspid regurgitation. In September 2007 he underwent stress testing that revealed a fixed wall motion abnormality of the posterior and lateral sweeney. There was no inducible ischemia and the patient was asymptomatic thus medical management was advised. He was treated with aspirin, statin, and beta-mihai therapy thereafter. The patient denies chest pain, tightness, pressure, discomfort, etc. He denies palpitations. He denies new or unusual shortness of breath. No orthopnea or PND. No lightheadedness, dizziness, or syncope. No fevers. No chills. No rash. Past Medical History: Chronic ischemic heart disease. Hypertension. Dyslipidemia. Type II diabetes mellitus. Diaphragmatic hernia. Osteoarthritis. Past Surgical History: Colonoscopy with polypectomy. Appendectomy Family History: Father with lung disease. He was a smoker who had silicosis. Mother with cancer. ? history of hemochromatosis. Brother Max without cardiac issues. Social History: Nonsmoker. No smokeless tobacco. No illegal drug use. Lives alone. 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 Positive ROS: Coughing when eating. Reflux esophagitis. Chronic right greater than left lower extremity edema. Episodic hematochezia during and after constipation. Arthritis. Peripheral neuropathy. Tremor. Foot drop. Patient is not the best historian. Complete Review of Systems is otherwise as stated above, negative, or noncontributory. Allergies Allergy/AdvReac Type Severity Reaction Status Date / Time IVP AdvReac Unknown WARM Uncoded 08/11/21 01:46 FEELING Home Medications Medication Instructions Recorded Confirmed Type aspirin 81 mg tablet,delayed 81 mg PO DAILY 08/11/21 08/11/21 History release atorvastatin 10 mg tablet 10 mg PO DAILY 08/11/21 08/11/21 History docusate sodium 100 mg capsule 100 mg PO DAILY 08/11/21 08/11/21 History (Colace) erythromycin 5 mg/gram (0.5 %) eye 1 applic OPHTHALMIC (EYE) HS PRN 08/11/21 08/11/21 History ointment famotidine 40 mg tablet 40 mg PO DAILY 08/11/21 08/11/21 History furosemide 40 mg tablet 40 mg PO DAILY 08/11/21 08/11/21 History gabapentin 300 mg capsule 300 mg PO BID 08/11/21 08/11/21 History ketoconazole 2 % shampoo 1 applic TOPICAL .Q3DAYS 08/11/21 08/11/21 History ketoconazole 2 % topical cream 1 applic TOPICAL BID PRN 08/11/21 08/11/21 History meloxicam 15 mg tablet 15 mg PO DAILY 08/11/21 08/11/21 History metformin 1,000 mg tablet 1,000 mg PO UD 08/11/21 08/11/21 History metoprolol tartrate 25 mg tablet 12.5 mg PO BID 08/11/21 08/11/21 History Patient History Medical History Diabetes High blood pressure Surgical History History of appendectomy Social History Smoking Status: Never smoker Hx Alcohol Use: No Hx Substance Use: No Preferred Language: Bengali Communication Ability: Effective 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 NAD. Pleasant. Cooperative. HENT: Normocephalic. Atraumatic. Eyes: PER. Conjunctiva pink, sclera clear. Neck: No carotid bruits. No JVD. No HJR. Heart: RRR, 90 bpm. No murmur. No rub. No gallop. PMI is nondisplaced. Lungs: Clear to auscultation. Abdomen: +BS. Soft. Nontender. No masses or organomegaly. Extremities: Mild edema, right greater than left. No clubbing. No cyanosis. Limited neurological examination: Mild left sided droop. Pulses: radial=2/4, posterior tibial=2/4. Results [facility] ([facility]) Vital Signs (Past 12 Hours) Vital Signs Temp Pulse Pulse Resp BP BP Pulse Ox 08/11/21 04:40 36.9 C 84 18 140/79 95 08/11/21 03:17 77 18 130/63 93 08/11/21 02:30 88 16 08/11/21 02:20 76 16 08/11/21 02:10 75 17 08/11/21 02:00 77 1 L 130/68 08/11/21 01:50 79 14 08/11/21 01:42 88 24 08/11/21 01:30 84 21 93 08/11/21 01:00 76 19 131/72 92 08/11/21 00:40 82 23 92 08/11/21 00:30 81 16 93 08/11/21 00:20 90 20 91 08/11/21 00:10 93 H 21 91 08/11/21 00:00 89 19 152/86 H 91 08/10/21 23:20 84 20 138/82 91 08/10/21 22:33 37 C 102 H 18 152/81 H 94 Laboratory Results Laboratory Results - last 24 hr 08/10/21 08/10/21 08/10/21 22:48 22:48 22:48 WBC 9.74 RBC 3.96 L Hgb 11.6 L POC Hgb Hct 36.9 L POC Hct MCV 93.2 MCH 29.3 MCHC 31.4 L RDW Std Deviation 51.8 H RDW Coeff of Carmen 15.0 H Plt Count 197 MPV 11.9 H Immature Gran % (Auto) 0.1 Neut % (Auto) 78.0 Lymph % (Auto) 13.3 Hunt % (Auto) 7.1 Eos % (Auto) 1.3 Baso % (Auto) 0.2 Reticulocyte % (Auto) Neut # (Auto) 7.59 H Lymph # (Auto) 1.30 Hunt # (Auto) 0.69 H Eos # (Auto) 0.13 Baso # (Auto) 0.02 Reticulocyte # Immature Gran # (Auto) 0.01 PT 10.4 INR 1.0 APTT 25.9 PTT Ratio 1.0 POC Sodium Sodium 155 H POC Potassium Potassium 4.0 POC Chloride Chloride 120 H Carbon Dioxide 26 POC Total CO2 Anion Gap 9.0 POC Anion Gap POC BUN BUN 17 Creatinine 1.06 POC Creatinine Est Cr Clr Drug Dosing 41.9 Est GFR ( Amer) 73.3 Est GFR (Non-Af Amer) 63.2 BUN/Creatinine Ratio 16.4 Glucose 136 H POC Glucose POC Glucose (other) Estimat Average Glucose Hemoglobin A1c Calcium 8.6 POC Ioniz Calcium Aaron Magnesium 2.1 Iron TIBC Transferrin Ferritin Total Bilirubin 0.5 AST 10 L ALT 18 Alkaline Phosphatase 79 Total Creatine Kinase Troponin I 0.095 H* Total Protein 7.0 Albumin 3.4 Globulin 3.6 Albumin/Globulin Ratio 0.9 Triglycerides Cholesterol LDL Cholesterol, Calc VLDL Cholesterol, Calc HDL Cholesterol Cholesterol/HDL Ratio Vitamin B12 Folate TSH 2.120 Urine Color Urine Appearance Urine pH Ur Specific [place] Urine Protein Urine Glucose (UA) Urine Ketones Urine Blood Urine Nitrite Urine Bilirubin Urine Urobilinogen Ur Leukocyte Esterase Lyme Disease IgG Ab Lyme IgG (Western Blot) Lyme IgG 18 kDa Band Lyme IgG 23 kDa Band Lyme IgG 28 kDa Band Lyme IgG 30 kDa Band Lyme IgG 39 kDa Band Lyme IgG 41 kDa Band Lyme IgG 45 kDa Band Lyme IgG 58 kDa Band Lyme IgG 66 kDa Band Lyme IgG 93 kDa Band Lyme IgM Ab (WB) Lyme Disease IgM Ab Lyme IgM 23 kDa Band Lyme IgM 39 kDa Band Lyme IgM 41 kDa Band SARS-CoV-2, RNA, NAAT Blood Type Antibody Screen 08/10/21 08/10/21 08/10/21 22:48 22:48 22:54 WBC RBC Hgb POC Hgb 11.9 L Hct POC Hct 35 L MCV MCH MCHC RDW Std Deviation RDW Coeff of Carmen Plt Count MPV Immature Gran % (Auto) Neut % (Auto) Lymph % (Auto) Hunt % (Auto) Eos % (Auto) Baso % (Auto) Reticulocyte % (Auto) Neut # (Auto) Lymph # (Auto) Hunt # (Auto) Eos # (Auto) Baso # (Auto) Reticulocyte # Immature Gran # (Auto) PT INR APTT PTT Ratio POC Sodium 156 H* Sodium POC Potassium 3.9 Potassium POC Chloride 116 H Chloride Carbon Dioxide POC Total CO2 25 Anion Gap POC Anion Gap 20.0 POC BUN 18 BUN Creatinine POC Creatinine 1.0 Est Cr Clr Drug Dosing Est GFR ( Amer) Est GFR (Non-Af Amer) BUN/Creatinine Ratio Glucose POC Glucose POC Glucose (other) 138 H Estimat Average Glucose Hemoglobin A1c Calcium POC Ioniz Calcium Aaron 1.16 Magnesium Iron TIBC Transferrin Ferritin Total Bilirubin AST ALT Alkaline Phosphatase Total Creatine Kinase Troponin I Total Protein Albumin Globulin Albumin/Globulin Ratio Triglycerides Cholesterol LDL Cholesterol, Calc VLDL Cholesterol, Calc HDL Cholesterol Cholesterol/HDL Ratio Vitamin B12 Folate TSH Urine Color Urine Appearance Urine pH Ur Specific [place] Urine Protein Urine Glucose (UA) Urine Ketones Urine Blood Urine Nitrite Urine Bilirubin Urine Urobilinogen Ur Leukocyte Esterase Lyme Disease IgG Ab Positive A Lyme IgG (Western Blot) Pending Lyme IgG 18 kDa Band Pending Lyme IgG 23 kDa Band Pending Lyme IgG 28 kDa Band Pending Lyme IgG 30 kDa Band Pending Lyme IgG 39 kDa Band Pending Lyme IgG 41 kDa Band Pending Lyme IgG 45 kDa Band Pending Lyme IgG 58 kDa Band Pending Lyme IgG 66 kDa Band Pending Lyme IgG 93 kDa Band Pending Lyme IgM Ab (WB) Pending Lyme Disease IgM Ab Negative Lyme IgM 23 kDa Band Pending Lyme IgM 39 kDa Band Pending Lyme IgM 41 kDa Band Pending SARS-CoV-2, RNA, NAAT Blood Type Antibody Screen 08/11/21 08/11/21 08/11/21 00:17 01:11 03:25 WBC RBC Hgb POC Hgb Hct POC Hct MCV MCH MCHC RDW Std Deviation RDW Coeff of Carmen Plt Count MPV Immature Gran % (Auto) Neut % (Auto) Lymph % (Auto) Hunt % (Auto) Eos % (Auto) Baso % (Auto) Reticulocyte % (Auto) Neut # (Auto) Lymph # (Auto) Hunt # (Auto) Eos # (Auto) Baso # (Auto) Reticulocyte # Immature Gran # (Auto) PT INR APTT PTT Ratio POC Sodium Sodium POC Potassium Potassium POC Chloride Chloride Carbon Dioxide POC Total CO2 Anion Gap POC Anion Gap POC BUN BUN Creatinine POC Creatinine Est Cr Clr Drug Dosing Est GFR ( Amer) Est GFR (Non-Af Amer) BUN/Creatinine Ratio Glucose POC Glucose 137 H POC Glucose (other) Estimat Average Glucose Hemoglobin A1c Calcium POC Ioniz Calcium Aaron Magnesium Iron TIBC Transferrin Ferritin Total Bilirubin AST ALT Alkaline Phosphatase Total Creatine Kinase Troponin I Total Protein Albumin Globulin Albumin/Globulin Ratio Triglycerides Cholesterol LDL Cholesterol, Calc VLDL Cholesterol, Calc HDL Cholesterol Cholesterol/HDL Ratio Vitamin B12 Folate TSH Urine Color Yellow Urine Appearance Clear Urine pH 8.0 H Ur Specific [place] 1.028 Urine Protein Negative Urine Glucose (UA) Negative Urine Ketones Negative Urine Blood Negative Urine Nitrite Negative Urine Bilirubin Negative Urine Urobilinogen Negative Ur Leukocyte Esterase Negative Lyme Disease IgG Ab Lyme IgG (Western Blot) Lyme IgG 18 kDa Band Lyme IgG 23 kDa Band Lyme IgG 28 kDa Band Lyme IgG 30 kDa Band Lyme IgG 39 kDa Band Lyme IgG 41 kDa Band Lyme IgG 45 kDa Band Lyme IgG 58 kDa Band Lyme IgG 66 kDa Band Lyme IgG 93 kDa Band Lyme IgM Ab (WB) Lyme Disease IgM Ab Lyme IgM 23 kDa Band Lyme IgM 39 kDa Band Lyme IgM 41 kDa Band SARS-CoV-2, RNA, NAAT NEGATIVE Blood Type Antibody Screen 08/11/21 08/11/21 08/11/21 05:14 05:14 05:14 WBC RBC Hgb POC Hgb Hct POC Hct MCV MCH MCHC RDW Std Deviation RDW Coeff of Carmen Plt Count MPV Immature Gran % (Auto) Neut % (Auto) Lymph % (Auto) Hunt % (Auto) Eos % (Auto) Baso % (Auto) Reticulocyte % (Auto) Neut # (Auto) Lymph # (Auto) Hunt # (Auto) Eos # (Auto) Baso # (Auto) Reticulocyte # Immature Gran # (Auto) PT INR APTT PTT Ratio POC Sodium Sodium 153 H POC Potassium Potassium 3.5 POC Chloride Chloride 118 H Carbon Dioxide 28 POC Total CO2 Anion Gap 7.0 POC Anion Gap POC BUN BUN 15 Creatinine 0.99 POC Creatinine Est Cr Clr Drug Dosing 44.8 Est GFR ( Amer) 79.6 Est GFR (Non-Af Amer) 68.7 BUN/Creatinine Ratio 15.4 Glucose 127 H POC Glucose POC Glucose (other) Estimat Average Glucose 126 Hemoglobin A1c 6.0 H Calcium 8.8 POC Ioniz Calcium Aaron Magnesium Iron 47 TIBC 307 Transferrin 238 Ferritin 26.3 Total Bilirubin AST ALT Alkaline Phosphatase Total Creatine Kinase Troponin I 1.860 H* Total Protein Albumin Globulin Albumin/Globulin Ratio Triglycerides 60 Cholesterol 91 LDL Cholesterol, Calc 29 VLDL Cholesterol, Calc 12 HDL Cholesterol 50 Cholesterol/HDL Ratio 2 Vitamin B12 Folate TSH Urine Color Urine Appearance Urine pH Ur Specific [place] Urine Protein Urine Glucose (UA) Urine Ketones Urine Blood Urine Nitrite Urine Bilirubin Urine Urobilinogen Ur Leukocyte Esterase Lyme Disease IgG Ab Lyme IgG (Western Blot) Lyme IgG 18 kDa Band Lyme IgG 23 kDa Band Lyme IgG 28 kDa Band Lyme IgG 30 kDa Band Lyme IgG 39 kDa Band Lyme IgG 41 kDa Band Lyme IgG 45 kDa Band Lyme IgG 58 kDa Band Lyme IgG 66 kDa Band Lyme IgG 93 kDa Band Lyme IgM Ab (WB) Lyme Disease IgM Ab Lyme IgM 23 kDa Band Lyme IgM 39 kDa Band Lyme IgM 41 kDa Band SARS-CoV-2, RNA, NAAT Blood Type O Positive Antibody Screen NEGATIVE 08/11/21 08/11/21 08/11/21 05:14 05:14 06:23 WBC 7.06 RBC 3.89 L Hgb 11.4 L POC Hgb Hct 36.3 L POC Hct MCV 93.3 MCH 29.3 MCHC 31.4 L RDW Std Deviation 52.2 H RDW Coeff of Carmen 15.2 H Plt Count 197 MPV 11.9 H Immature Gran % (Auto) 0.1 Neut % (Auto) 81.8 Lymph % (Auto) 13.0 Hunt % (Auto) 3.7 Eos % (Auto) 1.4 Baso % (Auto) 0.0 Reticulocyte % (Auto) 1.2 Neut # (Auto) 5.77 Lymph # (Auto) 0.92 L Hunt # (Auto) 0.26 Eos # (Auto) 0.10 Baso # (Auto) 0.00 Reticulocyte # 0.05 Immature Gran # (Auto) 0.01 PT INR APTT PTT Ratio POC Sodium Sodium POC Potassium Potassium POC Chloride Chloride Carbon Dioxide POC Total CO2 Anion Gap POC Anion Gap POC BUN BUN Creatinine POC Creatinine Est Cr Clr Drug Dosing Est GFR ( Amer) Est GFR (Non-Af Amer) BUN/Creatinine Ratio Glucose POC Glucose 144 H POC Glucose (other) Estimat Average Glucose Hemoglobin A1c Calcium POC Ioniz Calcium Aaron Magnesium Iron TIBC Transferrin Ferritin Total Bilirubin AST ALT Alkaline Phosphatase Total Creatine Kinase Troponin I Total Protein Albumin Globulin Albumin/Globulin Ratio Triglycerides Cholesterol LDL Cholesterol, Calc VLDL Cholesterol, Calc HDL Cholesterol Cholesterol/HDL Ratio Vitamin B12 232 Folate > 20.00 TSH Urine Color Urine Appearance Urine pH Ur Specific [place] Urine Protein Urine Glucose (UA) Urine Ketones Urine Blood Urine Nitrite Urine Bilirubin Urine Urobilinogen Ur Leukocyte Esterase Lyme Disease IgG Ab Lyme IgG (Western Blot) Lyme IgG 18 kDa Band Lyme IgG 23 kDa Band Lyme IgG 28 kDa Band Lyme IgG 30 kDa Band Lyme IgG 39 kDa Band Lyme IgG 41 kDa Band Lyme IgG 45 kDa Band Lyme IgG 58 kDa Band Lyme IgG 66 kDa Band Lyme IgG 93 kDa Band Lyme IgM Ab (WB) Lyme Disease IgM Ab Lyme IgM 23 kDa Band Lyme IgM 39 kDa Band Lyme IgM 41 kDa Band SARS-CoV-2, RNA, NAAT Blood Type Antibody Screen 08/11/21 09:30 WBC RBC Hgb POC Hgb Hct POC Hct MCV MCH MCHC RDW Std Deviation RDW Coeff of Carmen Plt Count MPV Immature Gran % (Auto) Neut % (Auto) Lymph % (Auto) Hunt % (Auto) Eos % (Auto) Baso % (Auto) Reticulocyte % (Auto) Neut # (Auto) Lymph # (Auto) Hunt # (Auto) Eos # (Auto) Baso # (Auto) Reticulocyte # Immature Gran # (Auto) PT INR APTT PTT Ratio POC Sodium Sodium POC Potassium Potassium POC Chloride Chloride Carbon Dioxide POC Total CO2 Anion Gap POC Anion Gap POC BUN BUN Creatinine POC Creatinine Est Cr Clr Drug Dosing Est GFR ( Amer) Est GFR (Non-Af Amer) BUN/Creatinine Ratio Glucose POC Glucose POC Glucose (other) Estimat Average Glucose Hemoglobin A1c Calcium POC Ioniz Calcium Aaron Magnesium Iron TIBC Transferrin Ferritin Total Bilirubin AST ALT Alkaline Phosphatase Total Creatine Kinase 188 Troponin I 2.720 H* Total Protein Albumin Globulin Albumin/Globulin Ratio Triglycerides Cholesterol LDL Cholesterol, Calc VLDL Cholesterol, Calc HDL Cholesterol Cholesterol/HDL Ratio Vitamin B12 Folate TSH Urine Color Urine Appearance Urine pH Ur Specific [place] Urine Protein Urine Glucose (UA) Urine Ketones Urine Blood Urine Nitrite Urine Bilirubin Urine Urobilinogen Ur Leukocyte Esterase Lyme Disease IgG Ab Lyme IgG (Western Blot) Lyme IgG 18 kDa Band Lyme IgG 23 kDa Band Lyme IgG 28 kDa Band Lyme IgG 30 kDa Band Lyme IgG 39 kDa Band Lyme IgG 41 kDa Band Lyme IgG 45 kDa Band Lyme IgG 58 kDa Band Lyme IgG 66 kDa Band Lyme IgG 93 kDa Band Lyme IgM Ab (WB) Lyme Disease IgM Ab Lyme IgM 23 kDa Band Lyme IgM 39 kDa Band Lyme IgM 41 kDa Band SARS-CoV-2, RNA, NAAT Blood Type Antibody Screen
[2021-08-11 10:11] LABS: Troponin I 2.72 ng/ml (0-0.045)
[2021-08-11] MEDS: GABAPENTIN 300 MG CAP PO SCH ×2 (10:26→20:51)
[2021-08-11] MEDS: FAMOTIDINE 40 MG TABLET PO SCH (10:26)
[2021-08-11] MEDS: DOCUSATE SODIUM 100 MG CAP PO SCH (10:26)
[2021-08-11] MEDS: ATORVASTATIN 10 MG TAB PO SCH (10:26)
[2021-08-11] MEDS: CLOPIDOGREL BISULFATE 75 MG TAB PO SCH (10:28)
[2021-08-11 12:04] LABS: Hematocrit (blood only) 38.1 % (42-52); Hemoglobin 11.7 g/dL (14.0-18.0)
--- NOTE | 2021-08-11 12:32 | Neurology Consultation ---
Date of Consultation August 11, 2021 Assessment & Plan (1) CVA (cerebral vascular accident): 1. MRI - small acute infaract 2. continue aspirin 81 mg and add plavix 75 mg daily x 21 days then stop aspirin and continue plavix for a lifetime 3. optimize HTN, HLD, DM LDL < 70 4. PT/OT speech for discharge needs 5. ZIO as outpatient unless irregular rhythm is detected in patient 6. fall risk 7. evaluation of home living situation will need rehab prior to return home will follow in neurology in 4-6 weeks after discharge Aminata BAILON (2) Dyslipidemia, goal LDL below 70: (3) HTN, goal below 130/80: (4) ASCVD (arteriosclerotic cardiovascular disease): (5) Dysarthria: Supervising Physician Co-Signing Physician Notes I have seen and discussed above patient with Dr Slim Maynard, neurology I have interviewed and examined this man reviewed his imaging studies and note that he has significant dysarthria and a mild right hemiparesis some of which appear to be pre-existing. According to him and he is development of his dysarthria was acute yesterday but we have records to suggest that he has had problems with chronic dysphagia dating back at least 3 years and at 1 point a PEG tube was suggested but he was reluctant to accept it and has done well without it thus far Imaging studies have shown several small areas of likely embolic infarction involving the deep portions of the left periopercular area, CT angiography studies have shown no clear evidence for atheromatous emboli, he remains in sinus rhythm, and echocardiographic studies are pending I would continue dual antiplatelet therapy here and arrange for an outpatient Zio patch We clearly need to review his outpatient [facility] chart to establish how much of what we are seeing clinically is pre-existing and how much is really due to the small strokes which by virtue of the location could explain significant dysarthria and development of a worsening in his dysphagia but I do not think are located in an area that would explain the right hemiparesis and 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 He says he started having issues on Wednesday with his speech. denies CP, SOB, abdominal pain, N, V. he has swallowing issue that started prior to the stroke. In 2018 he and his family decided on permissive aspiration rather than a PEG tube. Allergies Allergy/AdvReac Type Severity Reaction Status Date / Time IVP AdvReac Unknown WARM Uncoded 08/11/21 01:46 FEELING Home Medications Medication Instructions Recorded Confirmed Type aspirin 81 mg tablet,delayed 81 mg PO DAILY 08/11/21 08/11/21 History release atorvastatin 10 mg tablet 10 mg PO DAILY 08/11/21 08/11/21 History docusate sodium 100 mg capsule 100 mg PO DAILY 08/11/21 08/11/21 History (Colace) erythromycin 5 mg/gram (0.5 %) eye 1 applic OPHTHALMIC (EYE) HS PRN 08/11/21 08/11/21 History ointment famotidine 40 mg tablet 40 mg PO DAILY 08/11/21 08/11/21 History furosemide 40 mg tablet 40 mg PO DAILY 08/11/21 08/11/21 History gabapentin 300 mg capsule 300 mg PO BID 08/11/21 08/11/21 History ketoconazole 2 % shampoo 1 applic TOPICAL .Q3DAYS 08/11/21 08/11/21 History ketoconazole 2 % topical cream 1 applic TOPICAL BID PRN 08/11/21 08/11/21 History meloxicam 15 mg tablet 15 mg PO DAILY 08/11/21 08/11/21 History metformin 1,000 mg tablet 1,000 mg PO UD 08/11/21 08/11/21 History metoprolol tartrate 25 mg tablet 12.5 mg PO BID 08/11/21 08/11/21 History Patient History Medical History Diabetes High blood pressure Surgical History History of appendectomy Social History Smoking Status: Never smoker Hx Alcohol Use: No Hx Substance Use: No Preferred Language: French Communication Ability: Effective Direct Care Provider Required: No Beliefs That Will Affect Care: None Current Living Situation: Alone Other Information That Helps Us Care for You: No Feels Safe at Home: Yes Safety Concerns: Feels Safe At This Time Assistive Devices: Walker Review of Systems Review of Systems: All systems reviewed & are unremarkable except as noted in HPI & below Physical Exam Physical Exam: Physical Exam: Constitutional: appearance nourished, weak Ears, Nose, Mouth and Throat: mucous membranes moist, no injection and skin normal, eyes normal Cardiovascular: normal S-1 and S-2 and regular rate and rhythm Respiratory: course breath sounds Musculoskeletal: no peripheral edema and good distal pulses Skin: no stigmata of neurocutaneous disease noted and normal and intact Eyes: extraocular muscles intact (EOMI) NEUROLOGIC EXAMINATION: Mental status: Alert and interactive Oriented to full date and location Oriented to person Speech with evidence of aphasia Cranial Nerves right sided facial droop, tongue midline Reflexes: Deep tendon reflexes were symmetrical and graded 2/5. down going toes Sensory: light and cool touch Gait/Stance: Posture sitting up in bed Motor: pronator drift of out stretched arm right with eyes closed. Strength: hand phys asst biceps triceps 4/5 right, hip flex 4/5 right Results & Data ([facility]) Vital Signs (Past 12 Hours) Vital Signs Temp Pulse Pulse Resp BP BP Pulse Ox 08/11/21 08:00 36.8 C 78 18 128/64 98 08/11/21 04:40 36.9 C 84 18 140/79 95 08/11/21 03:17 77 18 130/63 93 08/11/21 02:30 88 16 08/11/21 02:20 76 16 08/11/21 02:10 75 17 08/11/21 02:00 77 1 L 130/68 08/11/21 01:50 79 14 08/11/21 01:42 88 24 08/11/21 01:30 84 21 93 08/11/21 01:00 76 19 131/72 92 08/11/21 00:40 82 23 92 08/11/21 00:30 81 16 93 08/11/21 00:20 90 20 91 Laboratory Results Abnormal lab results 08/10/21 08/10/21 08/10/21 Range/Units 22:48 22:48 22:48 RBC 3.96 L (4.7-6.1) M/uL Hgb 11.6 L (14.0-18.0) g/dL POC Hgb (14.0-18.0) g/dl Hct 36.9 L (42-52) % POC Hct (42-52) % MCHC 31.4 L (32-36) g/dL RDW Std Deviation 51.8 H (36.4-46.3) fL RDW Coeff of Carmen 15.0 H (11.5-14.5) % MPV 11.9 H (7.4-10.4) fL Neut # (Auto) 7.59 H (1.4-6.5) K/uL Lymph # (Auto) (1.2-3.4) K/uL [place] # (Auto) 0.69 H (0.11-0.59) K/uL POC Sodium (135-144) mmol/L Sodium 155 H (136-145) mmol/L POC Chloride (101-112) mmol/L Chloride 120 H (98-107) mmol/L Glucose 136 H (70-99) mg/dl POC Glucose (70-99) mg/dl POC Glucose (other) (70-99) mg/dl Hemoglobin A1c (4.5-5.6) % AST 10 L (15-37) U/L Troponin I 0.095 H* (0-0.045) ng/ml Urine pH (4.5-7.5) Lyme Disease IgG Ab Positive A (Negative) 08/10/21 08/11/21 08/11/21 Range/Units 22:54 00:17 03:25 RBC (4.7-6.1) M/uL Hgb (14.0-18.0) g/dL POC Hgb 11.9 L (14.0-18.0) g/dl Hct (42-52) % POC Hct 35 L (42-52) % MCHC (32-36) g/dL RDW Std Deviation (36.4-46.3) fL RDW Coeff of Carmen (11.5-14.5) % MPV (7.4-10.4) fL Neut # (Auto) (1.4-6.5) K/uL Lymph # (Auto) (1.2-3.4) K/uL [place] # (Auto) (0.11-0.59) K/uL POC Sodium 156 H* (135-144) mmol/L Sodium (136-145) mmol/L POC Chloride 116 H (101-112) mmol/L Chloride (98-107) mmol/L Glucose (70-99) mg/dl POC Glucose 137 H (70-99) mg/dl POC Glucose (other) 138 H (70-99) mg/dl Hemoglobin A1c (4.5-5.6) % AST (15-37) U/L Troponin I (0-0.045) ng/ml Urine pH 8.0 H (4.5-7.5) Lyme Disease IgG Ab (Negative) 08/11/21 08/11/21 08/11/21 Range/Units 05:14 05:14 05:14 RBC 3.89 L (4.7-6.1) M/uL Hgb 11.4 L (14.0-18.0) g/dL POC Hgb (14.0-18.0) g/dl Hct 36.3 L (42-52) % POC Hct (42-52) % MCHC 31.4 L (32-36) g/dL RDW Std Deviation 52.2 H (36.4-46.3) fL RDW Coeff of Carmen 15.2 H (11.5-14.5) % MPV 11.9 H (7.4-10.4) fL Neut # (Auto) (1.4-6.5) K/uL Lymph # (Auto) 0.92 L (1.2-3.4) K/uL [place] # (Auto) (0.11-0.59) K/uL POC Sodium (135-144) mmol/L Sodium 153 H (136-145) mmol/L POC Chloride (101-112) mmol/L Chloride 118 H (98-107) mmol/L Glucose 127 H (70-99) mg/dl POC Glucose (70-99) mg/dl POC Glucose (other) (70-99) mg/dl Hemoglobin A1c 6.0 H (4.5-5.6) % AST (15-37) U/L Troponin I 1.860 H* (0-0.045) ng/ml Urine pH (4.5-7.5) Lyme Disease IgG Ab (Negative) 08/11/21 08/11/21 08/11/21 Range/Units 06:23 09:30 11:43 RBC (4.7-6.1) M/uL Hgb 11.7 L (14.0-18.0) g/dL POC Hgb (14.0-18.0) g/dl Hct 38.1 L (42-52) % POC Hct (42-52) % MCHC (32-36) g/dL RDW Std Deviation (36.4-46.3) fL RDW Coeff of Carmen (11.5-14.5) % MPV (7.4-10.4) fL Neut # (Auto) (1.4-6.5) K/uL Lymph # (Auto) (1.2-3.4) K/uL [place] # (Auto) (0.11-0.59) K/uL POC Sodium (135-144) mmol/L Sodium (136-145) mmol/L POC Chloride (101-112) mmol/L Chloride (98-107) mmol/L Glucose (70-99) mg/dl POC Glucose 144 H (70-99) mg/dl POC Glucose (other) (70-99) mg/dl Hemoglobin A1c (4.5-5.6) % AST (15-37) U/L Troponin I 2.720 H* (0-0.045) ng/ml Urine pH (4.5-7.5) Lyme Disease IgG Ab (Negative) 08/11/21 08/11/21 Range/Units 11:43 11:54 RBC (4.7-6.1) M/uL Hgb (14.0-18.0) g/dL POC Hgb (14.0-18.0) g/dl Hct (42-52) % POC Hct (42-52) % MCHC (32-36) g/dL RDW Std Deviation (36.4-46.3) fL RDW Coeff of Carmen (11.5-14.5) % MPV (7.4-10.4) fL Neut # (Auto) (1.4-6.5) K/uL Lymph # (Auto) (1.2-3.4) K/uL [place] # (Auto) (0.11-0.59) K/uL POC Sodium (135-144) mmol/L Sodium 148 H (136-145) mmol/L POC Chloride (101-112) mmol/L Chloride (98-107) mmol/L Glucose (70-99) mg/dl POC Glucose 157 H (70-99) mg/dl POC Glucose (other) (70-99) mg/dl Hemoglobin A1c (4.5-5.6) % AST (15-37) U/L Troponin I (0-0.045) ng/ml Urine pH (4.5-7.5) Lyme Disease IgG Ab (Negative) Diagnostic Findings CT head and CTA head/neck - No significant stenosis, occlusion, or aneurysm within the [place]. No significant stenosis, occlusion, or dissection identified within the carotid or vertebral arteries. No acute intracranial abnormality. MRI brain-A few small acute infarcts within the left external capsule/posterior left basal ganglia. No acute hemorrhage. No mass effect. White matter T2 hyperintense foci consistent with small vessel disease. Moderate atrophy.
[2021-08-11] MEDS ORDERED: Nursing to Pharmacy Communication SCH (19:45)
--- NOTE | 2021-08-11 20:47 | Hospitalist Progress Note ---
Date of Service August 11, 2021 Assessment & Plan (1) Dysarthria: Plan: Present on admission with strokelike symptoms MRI of the brain showed few small acute infarcts within the left external capsule/posterior left basal ganglia. No acute hemorrhage. No mass effect. CTA head and neck showed no significant stenosis, occlusion, or dissection identified within the carotid or vertebral arteries. No acute intracranial abnormality. Neuro on board Recommended Plavix and aspirin for 21 days then stop aspirin and continue plavix for a lifetime Continue PT /OT /speech therapy Will need Zio patch outpatient to monitor his rhythm Follow-up with neurology in 4 to 6 weeks Elevated troponin Possible related to acute CVA Troponin on admission 0.095 then peak to 2.84, will trend troponin Cardiology on board Case discussed with cardiology that does not believe the elevated troponin related to demand ischemia Echo showed no LV wall motion abnormality Might consider to start on heparin drip but due to recent CVA will need to monitor for risk of intracranial hemorrhage while on anticoagulant Patient denies any chest pain Continue Plavix, aspirin, statin Continue monitor closely Diabetes Hemoglobin A1c 6 on 08/11/2021 Well-controlled Continue Lantus and insulin sliding scale Continue monitor BS Hypernatremia Sodium on admission 157 Received IV fluid Sodium is trending down at 148 Case discussed with nephrology (no official consult placed) recommend to continue D5 water Continue monitor BMP DVT prophylaxis. SCDs Re: Hematochezia DNR Patient requests for his brother to be updated of plan of care. Mr. Brian Phan, contact #[phone]. Admission and Anticipated Discharge Date Admission Date: August 11, 2021 Subjective Patient was seen and examined for follow-up of strokelike symptoms Sitting in bed with no acute distress Denies any chest pain, palpitation, dizziness, shortness of breath. Review of Systems Review of Systems: All systems reviewed & are unremarkable except as noted in Subjective Physical Exam Physical Exam: General- No acute distress Head- atraumatic Eyes- PERRL, EOMI, ENT- oropharynx clear Neck- supple, no JVD Lungs- clear to auscultation Heart- regular rhythm Abdomen- normal bowel sounds, soft, nontender Extremities- no calf tenderness Neuro- alert, oriented x 3; PERRL, EOMI; +facial droop no dysarthria Skin- warm & dry Results & Data Results & Data ([facility]) Vital Signs (Past 12 Hours) Vital Signs Temp Pulse Pulse Resp BP BP Pulse Ox 08/11/21 19:49 90 08/11/21 19:34 36.7 C 82 20 118/66 96 08/11/21 17:10 36.7 C 83 16 115/64 98 08/11/21 16:00 37 C 78 18 131/63 98 08/11/21 13:40 36.9 C 78 18 131/76 97
[2021-08-11 21:34] LABS: Troponin I 2.99 ng/ml (0-0.045)
[2021-08-12] MEDS ORDERED: DEXTROSE 5% 1,000 ML IV SCH (00:15)
[2021-08-12 02:06] LABS: BUN Creatinine Ratio 13.5 (10-20); Calcium 8.2 mg/dl (8.5-10.1); Creatinine Clr Calc Pharmacy 44.8 ml/min; Est GFR (African American) 79.6 ml/min; Est GFR (Non-African American) 68.7 ml/min; Potassium 3.7 mmol/L (3.5-5.1)
[2021-08-12 02:13] LABS: Troponin I 2.53 ng/ml (0-0.045)
--- NOTE | 2021-08-12 06:29 | Electrocardiogram Report ---
Test Reason : Blood Pressure : / mmHG Vent. Rate : 099 BPM Atrial Rate : 099 BPM P-R Int : 170 ms QRS Dur : 094 ms QT Int : 350 ms P-R-T Axes : 067 -51 103 degrees QTc Int : 449 ms Normal sinus rhythm Left axis deviation Nonspecific ST and T wave abnormality Abnormal ECG When compared with ECG of 15-APR-2012 10:14, T wave inversion no longer evident in Inferior leads Confirmed by Floyd Reyes ([id number]) on 08/12/2021 6:28:43 AM Referred By: REFERRED SELF Confirmed By:Floyd Reyes
--- NOTE | 2021-08-12 08:32 | XRay Report ---
XR chest 1V portable CLINICAL HISTORY: Elevated troponin. cva. Evaluate cardiopulmonary status COMPARISON STUDY: No previous studies for comparison. TECHNIQUE: 1 view of the chest FINDINGS: Single frontal view of the chest demonstrates the cardiomediastinal silhouette to be within normal li mits. There is a decreased inspiratory effort with elevation of the hemidiaphragms and crowding of th e bronchovascular markings at the lung bases and centrally. Additionally, there is small left pleural effusion with left lower lobe atelectasis/collapse. Underlying early retrocardiac infiltrate cannot be excluded. Follow-up PA and lateral radiographs are recommended. There is no evidence for right ple ural effusion. There is no evidence for vascular congestion. There is no acute osseous pathology. IMPRESSION: Decreased inspiration with with small left pleural effusionry and retrocardiac density mo st characteristic of atelectasis/collapse. However, early infiltrate cannot be excluded and follow-up PA and lateral radiographs are recommended. ACT 112: Negative or not required by law. Electronically signed by: Elmer Mondragon M.D. 08/12/2021 8:31 AM
[2021-08-12] MEDS: GABAPENTIN 300 MG CAP PO SCH ×2 (08:57→20:27)
[2021-08-12] MEDS: ATORVASTATIN 10 MG TAB PO SCH (08:57)
[2021-08-12] MEDS: FAMOTIDINE 40 MG TABLET PO SCH (08:57)
[2021-08-12] MEDS: CLOPIDOGREL BISULFATE 75 MG TAB PO SCH (08:58)
[2021-08-12] MEDS: DOCUSATE SODIUM 100 MG CAP PO SCH (08:58)
[2021-08-12] MEDS: INSULIN GLARGINE SOLOSTAR 100 UNITS/ML 3 ML PEN SC SCH (08:59)
[2021-08-12] MEDS: ASPIRIN 81 MG ECTAB PO SCH (09:00)
[2021-08-12] MEDS: INSULIN ASPART 100 UNITS/ML 3 ML PEN SC SCH ×4 (09:03→20:46)
--- NOTE | 2021-08-12 09:11 | Cardiology Progress Note ---
Date of Service August 12, 2021 Assessment & Plan (1) Dysarthria: (2) Weakness: (3) Elevated troponin: (4) Symptoms of cerebrovascular accident (CVA): (5) ASCVD (arteriosclerotic cardiovascular disease): (6) HTN, goal below 130/80: (7) Dyslipidemia, goal LDL below 70: Plan: 86 year old male with known underlying coronary artery disease by remote evaluation (fixed posterior and lateral wall motion abnormality via September 2007 stress test), admitted to [facility] with a cerebral vascular accident. + Elevated troponin lead to cardiology consultation. Patient remains asymptomatic in regards to active/acute/overt cardiopulmonary symptoms. Blood pressure is well controlled. LDL cholesterol was 29 mg/dL on 08/11/2021. HgA1c 6.0% on 08/11/2021. Resting echocardiography is as noted above. Telemetry without arrhythmia thus far. Continue appropriate medical management. Continue aspirin, statin, and beta-mihai therapy. Add an ARB if/when hypertensive. Maintain telemetry. Outpatient 14-day Zio to assess for atrial fibrillation. Admission and Anticipated Discharge Date Admission Date: August 11, 2021 Supervising Physician Co-Signing Physician Notes Patient seen and examined with Jaun Bradford PA-C. Agree with findings and assessment as above. Troponin levels trending down. Patient without cardiac complaint. No further cardiac testing intervention necessary at this time. Subjective Patient seen and examined. Chart, medications, and telemetry reviewed. "I think I'm getting worse." + Dysarthria. + Numbness in hand. + Weakness. + Cough. Stable mild right greater left lower extremity edema. No chest pain, palpitations, worsening shortness of breath, dizziness, near syncope, fevers, chills, melena, or hematochezia Telemetry: Sinus in the 60's to 90's. No atrial fibrillation/flutter, significant bradycardia, or pauses. August 11, 2021 TTE Interpretation Summary ([facility], Dr. Shahid): Normal LV chamber size and wall thickness. Normal LV systolic function, EF 60-65%. No segmental LV wall motion abnormalities. Grade I diastolic dysfunction. Intact interatrial septum with no evidence for an atrial septal defect. Injection of contrast documented no interatrial shunt. Physical Exam Physical Exam: General: A&Ox3. NAD. Pleasant. Cooperative. HENT: Normocephalic. Atraumatic. Eyes: PER. Conjunctiva pink, sclera clear. Neck: No carotid bruits. No JVD. No HJR. Heart: RRR, 90 bpm. No murmur. No rub. No gallop. PMI is nondisplaced. Lungs: Clear to auscultation. Abdomen: +BS. Soft. Nontender. No masses or organomegaly. Extremities: Mild (trace to 1+) right lower extremity pretibial edema. No edema on the left. No clubbing. No cyanosis. Limited neurological examination: Speech is more dysarthric compared to yesterday in the ER. Decreased strength in the right hand Pulses: radial=2/4, posterior tibial=2/4. Results & Data ([facility]) Vital Signs (Past 12 Hours) Vital Signs Temp Pulse Pulse Resp BP Pulse Ox 08/12/21 08:00 36.8 C 99 H 18 124/66 91 08/12/21 04:00 37.1 C 88 18 104/61 93 08/12/21 00:29 95 H 08/11/21 23:42 36.7 C 90 20 133/65 92 Laboratory Results Laboratory Results - last 24 hr 08/11/21 08/11/21 08/11/21 09:30 11:43 11:43 Hgb 11.7 L Hct 38.1 L Sodium 148 H Potassium Chloride Carbon Dioxide Anion Gap BUN Creatinine Est Cr Clr Drug Dosing Est GFR ( Amer) Est GFR (Non-Af Amer) BUN/Creatinine Ratio Glucose POC Glucose Calcium Total Creatine Kinase 188 Troponin I 2.720 H* 08/11/21 08/11/21 08/11/21 11:54 14:54 16:49 Hgb Hct Sodium Potassium Chloride Carbon Dioxide Anion Gap BUN Creatinine Est Cr Clr Drug Dosing Est GFR ( Amer) Est GFR (Non-Af Amer) BUN/Creatinine Ratio Glucose POC Glucose 157 H 112 H Calcium Total Creatine Kinase Troponin I 2.840 H* 08/11/21 08/11/21 08/11/21 18:30 20:08 20:10 Hgb Hct Sodium 145 Potassium Chloride Carbon Dioxide Anion Gap BUN Creatinine Est Cr Clr Drug Dosing Est GFR ( Amer) Est GFR (Non-Af Amer) BUN/Creatinine Ratio Glucose POC Glucose 99 110 H Calcium Total Creatine Kinase Troponin I 2.990 H* 08/12/21 08/12/21 01:23 07:44 Hgb Hct Sodium 143 Potassium 3.7 Chloride 110 H Carbon Dioxide 25 Anion Gap 8.0 BUN 13 Creatinine 0.99 Est Cr Clr Drug Dosing 44.8 Est GFR ( Amer) 79.6 Est GFR (Non-Af Amer) 68.7 BUN/Creatinine Ratio 13.5 Glucose 111 H POC Glucose 99 Calcium 8.2 L Total Creatine Kinase 412 H Troponin I 2.530 H*
--- NOTE | 2021-08-12 15:07 | Neurology Progress Note ---
Date of Service August 12, 2021 Assessment & Plan (1) CVA (cerebral vascular accident): Plan: 1. MRI - small acute lacunar infarct 2. continue aspirin 81 mg and add plavix 75 mg daily x 21 days then stop aspirin and continue plavix for a lifetime 3. optimize HTN, HLD, DM LDL < 70 4. PT/OT speech for discharge needs 5. ZIO as outpatient unless irregular rhythm is detected in patient 6. fall risk 7. will sign off for now will be available for questions concerns. evaluation of home living situation will need rehab prior to return home will follow in neurology in 4-6 weeks after discharge Aminata BAILON (2) Dyslipidemia, goal LDL below 70: (3) HTN, goal below 130/80: (4) ASCVD (arteriosclerotic cardiovascular disease): (5) Dysarthria: Admission and Anticipated Discharge Date Admission Date: August 11, 2021 Supervising Physician Co-Signing Physician Notes I have seen and discussed above patient with Dr Slim Maynard, neurology I saw Mr. Phan today and he is improved in terms of his right upper and lower extremity movements and the mild to moderate hemiparesis SIS is now in the mild to minimal and his right facial asymmetry is less but his speech remains dysarthric and he has almost a pseudobulbar affect with lucidity and near tearful episodes Some of the latter phenomena can be seen and vascular pseudobulbar palsy but this generally requires bilateral events. He does have on scan evidence for prior white matter changes not inconsistent with his age and a new acute event is deep in the dominant insular/opercular area. The latter can be associated with pseudobulbar paresis pharyngeal weakness and even a pseudobulbar affect as part of a Foix Keisha Cahavey syndrome. The cause of these presumptive embolic infarctions remains unclear as his echocardiographic study is pretty unremarkable and monitoring has shown no atrial arrhythmias but he will need an outpatient Zio patch I do not know his baseline status, his family would have to provide this information, but at present I suspect he may need some rehabilitation or an extended care facility with rehabilitation capabilities Neurology is going to sign out at this time with recommendations that he continue the dual antiplatelet therapy for 21 days and switch to single agent in this case probably Plavix, to undergo some formal rehabilitation and speech therapy, swallowing assessment, and an outpatient Zio patch to check for atrial fibrillation. We are going to arrange to see him back in our office in 4 to 6 weeks as per the above note Slim Maynard MD Miguel Golden is an 86 year old male with PMH ASCVD, DM, HLD, HTN, DM2, neuropathy (per record Aspiration risk) who presents to [facility] 08/11/2021 after he was at a restaurant this am and had an episode of slurred speech and right facial droop. He says he started having issues on Wednesday with his speech. denies CP, SOB, abdominal pain, N, V. he has swallowing issue that started prior to the stroke. In 2018 he and his family decided on permissive aspiration rather than a PEG tube. EPIC chart reviewed and no mention of ongoing weakness. Review of Systems Review of Systems: All systems reviewed & are unremarkable except as noted in HPI & below Physical Exam Physical Exam: Physical Exam: Constitutional: appearance nourished, weepy talking about family and what he eats Ears, Nose, Mouth and Throat: mucous membranes moist, no injection and skin normal, eyes normal Cardiovascular: normal S-1 and S-2 and regular rate and rhythm Respiratory: course breath sounds Musculoskeletal: no peripheral edema and good distal pulses Skin: no stigmata of neurocutaneous disease noted and normal and intact Eyes: extraocular muscles intact (EOMI) NEUROLOGIC EXAMINATION: Mental status: Alert and interactive Oriented to full date and location Oriented to person Speech with evidence of aphasia but improved Cranial Nerves right sided facial droop, tongue midline Reflexes: Deep tendon reflexes were symmetrical and graded 2/5. down going toes Sensory: light and cool touch Gait/Stance: Posture sitting up in bed Motor: pronator drift of out stretched arm right improved with eyes closed. 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) Vital Signs (Past 12 Hours) Vital Signs Temp Pulse Pulse Resp BP Pulse Ox 08/12/21 12:10 72 08/12/21 11:26 36.6 C 89 18 104/45 L 93 08/12/21 08:00 36.8 C 99 H 18 124/66 91 08/12/21 04:00 37.1 C 88 18 104/61 93 Laboratory Results Abnormal lab results 08/11/21 08/11/21 08/11/21 Range/Units 14:54 16:49 20:08 Chloride (98-107) mmol/L Glucose (70-99) mg/dl POC Glucose 112 H (70-99) mg/dl Calcium (8.5-10.1) mg/dl Total Creatine Kinase (39-308) U/L Troponin I 2.840 H* 2.990 H* (0-0.045) ng/ml 08/11/21 08/12/21 08/12/21 Range/Units 20:10 01:23 12:32 Chloride 110 H (98-107) mmol/L Glucose 111 H (70-99) mg/dl POC Glucose 110 H 101 H (70-99) mg/dl Calcium 8.2 L (8.5-10.1) mg/dl Total Creatine Kinase 412 H (39-308) U/L Troponin I 2.530 H* (0-0.045) ng/ml Diagnostic Findings TTE- 60-65% EF no ASD
--- NOTE | 2021-08-12 16:45 | Hospitalist Progress Note ---
Date of Service August 12, 2021 Assessment & Plan (1) Dysarthria: Plan: Present on admission with strokelike symptoms MRI of the brain showed few small acute infarcts within the left external capsule/posterior left basal ganglia. No acute hemorrhage. No mass effect. CTA head and neck showed no significant stenosis, occlusion, or dissection identified within the carotid or vertebral arteries. No acute intracranial abnormality. Neuro on board Recommended Plavix and aspirin for 21 days then stop aspirin and continue plavix for a lifetime Continue PT /OT /speech therapy Will need Zio patch outpatient to monitor his rhythm Follow-up with neurology in 4 to 6 weeks Waiting for placement to rehab Elevated troponin Possible related to acute CVA Troponin on admission 0.095 then peak to 2.9, now trending down to 2.5 Cardiology on board Case discussed with cardiology that does not believe the elevated troponin related to demand ischemia Echo showed no LV wall motion abnormality Might consider to start on heparin drip but due to recent CVA will need to monitor for risk of intracranial hemorrhage while on anticoagulant Patient denies any chest pain Continue Plavix, aspirin, statin Continue monitor closely Diabetes Hemoglobin A1c 6 on 08/11/2021 Well-controlled Continue Lantus and insulin sliding scale Continue monitor BS Hypernatremia Sodium on admission 157 Received IV fluid Sodium is trending down at 143 Case discussed with nephrology (no official consult placed) recommend to continue D5 water Continue monitor BMP Chest pain noted discontinue IV fluid DVT prophylaxis. SCDs Re: Hematochezia DNR Disposition Waiting for placement to rehab Patient requests for his brother to be updated of plan of care. Mr. Brian Phan, contact #[phone]. Admission and Anticipated Discharge Date Admission Date: August 11, 2021 Subjective Patient was seen and examined for follow-up of stroke like symptoms Lying in bed with no distress with brother at bedside Patient worked with therapy today and did very poor She agreed to go to rehab to get stronger Case management was notified and referral placed Denies any chest pain, palpitation, dizziness, shortness of breath. Review of Systems Review of Systems: All systems reviewed & are unremarkable except as noted in Subjective Physical Exam Physical Exam: General- No acute distress Head- atraumatic Eyes- PERRL, EOMI, ENT- oropharynx clear Neck- supple, no JVD Lungs- clear to auscultation Heart- regular rhythm Abdomen- normal bowel sounds, soft, nontender Extremities- no calf tenderness Neuro- alert, oriented x 3; PERRL, EOMI; +facial droop, +dysarthria Skin- warm & dry Results & Data Results & Data ([facility]) Vital Signs (Past 12 Hours) Vital Signs Temp Pulse Pulse Resp BP Pulse Ox 08/12/21 15:56 81 08/12/21 12:10 72 08/12/21 11:26 36.6 C 89 18 104/45 L 93 08/12/21 08:00 36.8 C 99 H 18 124/66 91
--- NOTE | 2021-08-13 05:57 | Electrocardiogram Report ---
Test Reason : Blood Pressure : / mmHG Vent. Rate : 098 BPM Atrial Rate : 098 BPM P-R Int : 166 ms QRS Dur : 092 ms QT Int : 348 ms P-R-T Axes : 079 -51 106 degrees QTc Int : 444 ms Poor data quality, interpretation may be adversely affected Normal sinus rhythm Left anterior fascicular block Nonspecific ST and T wave abnormality Abnormal ECG When compared with ECG of 10-AUG-2021 22:35, No significant change Confirmed by Floyd Reyes ([id number]) on 08/13/2021 5:57:22 AM Referred By: REFERRED SELF Confirmed By:Floyd Reyes
[2021-08-13] MEDS: GABAPENTIN 300 MG CAP PO SCH ×2 (07:35→20:31)
[2021-08-13] MEDS: CLOPIDOGREL BISULFATE 75 MG TAB PO SCH (07:35)
[2021-08-13] MEDS: ASPIRIN 81 MG ECTAB PO SCH (07:35)
[2021-08-13] MEDS: ATORVASTATIN 10 MG TAB PO SCH (07:35)
[2021-08-13] MEDS: FAMOTIDINE 40 MG TABLET PO SCH (07:35)
[2021-08-13] MEDS: DOCUSATE SODIUM 100 MG CAP PO SCH (07:35)
[2021-08-13 08:07] LABS: 18KDIGG Band NON-REACTIVE; 23KDIGG Band NON-REACTIVE; 23KDIGM Band NON-REACTIVE; 28KDIGG Band REACTIVE; 30KDIGG Band NON-REACTIVE; 39KDIGG Band REACTIVE; 39KDIGM Band NON-REACTIVE; 41KDIGG Band NON-REACTIVE; 41KDIGM Band NON-REACTIVE; 45KDIGG Band NON-REACTIVE; 58KDIGG Band REACTIVE; 66KDIGG Band REACTIVE; 93KDIGG Band REACTIVE; Lyme Antibodies, WB IgG POSITIVE (NEGATIVE); Lyme Antibodies, WB IgM NEGATIVE (NEGATIVE)
[2021-08-13] MEDS: INSULIN ASPART 100 UNITS/ML 3 ML PEN SC SCH ×4 (08:34→20:37)
[2021-08-13] MEDS: INSULIN GLARGINE SOLOSTAR 100 UNITS/ML 3 ML PEN SC SCH (08:35)
[2021-08-13 08:38] LABS: BUN Creatinine Ratio 13.8 (10-20); Calcium 8.4 mg/dl (8.5-10.1); Creatinine Clr Calc Pharmacy 47.2 ml/min; Est GFR (African American) 76.8 ml/min; Est GFR (Non-African American) 66.2 ml/min; Potassium 3.6 mmol/L (3.5-5.1)
--- NOTE | 2021-08-13 09:49 | Cardiology Progress Note ---
Date of Service August 13, 2021 Assessment & Plan (1) Dysarthria: (2) Weakness: (3) Elevated troponin: (4) Symptoms of cerebrovascular accident (CVA): (5) ASCVD (arteriosclerotic cardiovascular disease): (6) HTN, goal below 130/80: (7) Dyslipidemia, goal LDL below 70: Plan: 86 year old male with known underlying coronary artery disease by remote evaluation (fixed posterior and lateral wall motion abnormality via September 2007 stress test), admitted to [facility] with a cerebral vascular accident. + Elevated troponin lead to cardiology consultation. Patient remains asymptomatic in regards to active/acute/overt cardiopulmonary symptoms. Blood pressure is well controlled. LDL cholesterol was 29 mg/dL on 08/11/2021. HgA1c 6.0% on 08/11/2021. Resting echocardiography is as noted above. Telemetry without arrhythmia thus far. Continue appropriate medical management. Continue aspirin. Continue statin. Order written to resume beta-mihai therapy. Add an ARB if/when significant hypertension observed. Outpatient 14-day Zio monitor to assess for atrial fibrillation. Admission and Anticipated Discharge Date Admission Date: August 12, 2021 Supervising Physician Co-Signing Physician Notes Patient seen and examined with Jaun Bradford PA-C. Agree with findings and assessment as above. No complaints from a cardiac standpoint. No atrial arrhythmias on monitor. 14-day Zio patch monitor as an outpatient. Will sign off, please call with questions or concerns. Subjective Patient seen and examined. Chart, medications, and telemetry reviewed. Feeling better. No chest pain, palpitations, shortness of breath, orthopnea, PND, i ncreased edema, dizziness, near syncope, or syncope. Telemetry: Sinus/sinus tachycardia ranging from the 70's to the low 100's. Occasional PAC's Physical Exam Physical Exam: General: A&Ox3. NAD. Pleasant. Cooperative. HENT: Normocephalic. Atraumatic. Eyes: PER. Conjunctiva pink, sclera clear. Neck: No carotid bruits. No JVD. No HJR. Heart: RRR, 86 bpm. No murmur. No rub. No gallop. PMI is nondisplaced. Lungs: Clear to auscultation. Abdomen: +BS. Soft. Nontender. No masses or organomegaly. Extremities: Mild (trace to 1+) right lower extremity pretibial edema. No edema on the left. + Mild erythema. No clubbing. No cyanosis. Limited neurological examination: Dysarthric speech is mildly improved. Strength/function of the right hand has improved. Pulses: radial=2/4, posterior tibial=2/4. Results & Data ([facility]) Vital Signs (Past 12 Hours) Vital Signs Temp Pulse Pulse Resp BP Pulse Ox 08/13/21 07:47 37.4 C 77 18 121/63 95 08/13/21 05:29 86 08/13/21 03:22 36.9 C 88 16 125/69 94 08/12/21 22:52 36.8 C 83 16 118/76 98
[2021-08-13] MEDS: METOPROLOL TARTRATE 25 MG TAB PO SCH ×2 (10:46→20:31)
--- NOTE | 2021-08-13 10:56 | Hospitalist Progress Note ---
Date of Service August 13, 2021 Assessment & Plan (1) Dysarthria: Plan: Presented on admission with strokelike symptoms MRI of the brain showed few small acute infarcts within the left external capsule/posterior left basal ganglia. No acute hemorrhage. No mass effect. CTA head and neck showed no significant stenosis, occlusion, or dissection identified within the carotid or vertebral arteries. No acute intracranial abnormality. Neurologist evaluation noted Recommended Plavix and aspirin for 21 days then stop aspirin and continue plavix for a lifetime Continue PT /OT /speech therapy Will need Zio patch outpatient to monitor his rhythm Follow-up with neurology in 4 to 6 weeks Waiting for placement to rehab Elevated troponin Possible related to acute CVA Troponin on admission 0.095 then peak to 2.9, now trending down to 2.5 Cardiology evaluation noted Echo showed no LV wall motion abnormality Patient denies any chest pain Continue Plavix, aspirin, statin Continue monitor closely Diabetes Hemoglobin A1c 6 on 08/11/2021 Well-controlled Continue Lantus and insulin sliding scale Continue monitor BS Hypernatremia Sodium on admission 157 Received IV fluid Sodium is trending down at 143 Hypernatremia resolved DVT prophylaxis. SCDs Re: Hematochezia DNR Disposition Waiting for placement to rehab Patient requests for his brother to be updated of plan of care. Mr. Brian Phan, contact #[phone]. Admission and Anticipated Discharge Date Admission Date: August 12, 2021 Subjective 86-year-old man with history of CAD, hypertension, hyperlipidemia, DM type II, neuropathy who was brought in after a fall and noted to have slurred speech and left facial droop. Being managed for Acute CVA. Patient seen and examined this morning. Patient has dysphasia which limits detailed ROS He does acknowledge difficulty 'finding his mouth' while eating is improved this morning. Denied any worsening symptoms. Denied any headache, dizziness Denies any chest pain, shortness of breath Physical Exam Constitutional: + well hydrated; no acute distress Eyes: PERRL, conjunctivae normal, anicteric sclerae ENMT: external ear and nose normal, oropharynx normal Respiratory: normal respiratory effort, lungs clear to auscultation Cardiovascular: Rate/Rhythm: regular rate and regular rhythm S1 S2 Gastrointestinal (Abdomen): normal bowel sounds, soft, nontender, no hepatosplenomegaly Musculoskeletal: Trace pedal edema Neurologic: Left facial droop Dysarthric AOx3 Psychiatric: A+Ox3, euthymic affect Results & Data Results & Data ([facility]) Vital Signs (Past 12 Hours) Vital Signs Temp Pulse Pulse Resp BP Pulse Ox 08/13/21 07:47 37.4 C 77 18 121/63 95 08/13/21 05:29 86 08/13/21 03:22 36.9 C 88 16 125/69 94 Laboratory Results Abnormal lab results 08/10/21 08/12/21 08/13/21 Range/Units 22:48 19:55 07:24 Chloride 111 H (98-107) mmol/L POC Glucose 123 H (70-99) mg/dl Calcium 8.4 L (8.5-10.1) mg/dl Lyme IgG (Western Blot) POSITIVE A (NEGATIVE) Lyme IgG 28 kDa Band REACTIVE A Lyme IgG 39 kDa Band REACTIVE A Lyme IgG 58 kDa Band REACTIVE A Lyme IgG 66 kDa Band REACTIVE A Lyme IgG 93 kDa Band REACTIVE A 08/13/21 08/13/21 Range/Units 11:14 16:47 Chloride (98-107) mmol/L POC Glucose 106 H 105 H (70-99) mg/dl Calcium (8.5-10.1) mg/dl Lyme IgG (Western Blot) (NEGATIVE) Lyme IgG 28 kDa Band Lyme IgG 39 kDa Band Lyme IgG 58 kDa Band Lyme IgG 66 kDa Band Lyme IgG 93 kDa Band
[2021-08-13] MEDS: DOXYCYCLINE HYCLATE 100 MG CAP PO SCH (20:31)
--- NOTE | 2021-08-13 22:59 | Electrocardiogram Report ---
Test Reason : Blood Pressure : / mmHG Vent. Rate : 086 BPM Atrial Rate : 086 BPM P-R Int : 138 ms QRS Dur : 086 ms QT Int : 370 ms P-R-T Axes : 042 -51 -01 degrees QTc Int : 442 ms Normal sinus rhythm Left axis deviation Nonspecific ST abnormality Abnormal ECG When compared with ECG of 11-AUG-2021 00:15, Nonspecific T wave abnormality now evident in Inferior leads Confirmed by Floyd Reyes ([id number]) on 08/13/2021 10:59:38 PM Referred By: REFERRED SELF Confirmed By:Floyd Reyes
[2021-08-14] MEDS: ASPIRIN 81 MG ECTAB PO SCH (08:35)
[2021-08-14] MEDS: METOPROLOL TARTRATE 25 MG TAB PO SCH ×2 (08:36→20:11)
[2021-08-14] MEDS: CLOPIDOGREL BISULFATE 75 MG TAB PO SCH (08:36)
[2021-08-14] MEDS: FAMOTIDINE 40 MG TABLET PO SCH (08:36)
[2021-08-14] MEDS: DOXYCYCLINE HYCLATE 100 MG CAP PO SCH ×2 (08:37→20:10)
[2021-08-14] MEDS: ATORVASTATIN 10 MG TAB PO SCH (08:37)
[2021-08-14] MEDS: GABAPENTIN 300 MG CAP PO SCH ×2 (08:37→20:10)
[2021-08-14] MEDS: INSULIN GLARGINE SOLOSTAR 100 UNITS/ML 3 ML PEN SC SCH (08:38)
[2021-08-14] MEDS: DOCUSATE SODIUM 100 MG CAP PO SCH (08:50)
[2021-08-14] MEDS: INSULIN ASPART 100 UNITS/ML 3 ML PEN SC SCH ×4 (08:53→20:09)
--- NOTE | 2021-08-14 10:19 | Hospitalist Progress Note ---
Date of Service August 14, 2021 Assessment & Plan (1) Dysarthria: Plan: Presented on admission with strokelike symptoms MRI of the brain showed few small acute infarcts within the left external capsule/posterior left basal ganglia. No acute hemorrhage. No mass effect. CTA head and neck showed no significant stenosis, occlusion, or dissection identified within the carotid or vertebral arteries. No acute intracranial abnormality. Neurologist evaluation noted Recommended Plavix and aspirin for 21 days then stop aspirin and continue plavix for a lifetime Continue PT /OT /speech therapy Will need Zio patch outpatient to monitor his rhythm Follow-up with neurology in 4 to 6 weeks Awaiting placement to rehab Elevated troponin Possible related to acute CVA Troponin on admission 0.095 then peak to 2.9, now trending down to 2.5 Cardiology evaluation noted Echo showed no LV wall motion abnormality Patient denies any chest pain Continue Plavix, aspirin, statin Continue monitor closely Diabetes Hemoglobin A1c 6 on 08/11/2021 Well-controlled Continue Lantus and insulin sliding scale Continue monitor BS Hypernatremia Sodium on admission 157 Received IV fluid Hypernatremia resolved Patient lyme test on admission showed Lyme 1gG + Ab as well as western blot Patient denied any known h/o lyme or tick bite Continue doxycycline for lyme disease DVT prophylaxis. SCDs Re: Hematochezia DNR Disposition Waiting for placement to rehab Patient requests for his brother to be updated of plan of care. Mr. Brian Phan, contact #[phone]. Admission and Anticipated Discharge Date Admission Date: August 12, 2021 Subjective 86-year-old man with history of CAD, hypertension, hyperlipidemia, DM type II, neuropathy who was brought in after a fall and noted to have slurred speech and left facial droop. Being managed for Acute CVA. Patient seen and examined this morning. Reports improvement in his eating and speech Denied any fevers, chills, nausea, vomiting Denied abd pain, diarrhea Denied any headache, dizziness Denies any chest pain, shortness of breath Reports mild chronic cough Physical Exam Constitutional: + well hydrated; no acute distress Eyes: PERRL, conjunctivae normal, anicteric sclerae ENMT: external ear and nose normal, oropharynx normal Respiratory: normal respiratory effort, lungs clear to auscultation Cardiovascular: Rate/Rhythm: regular rate and regular rhythm S1 S2 Gastrointestinal (Abdomen): normal bowel sounds, soft, nontender, no hepatosplenomegaly Musculoskeletal: No pedal edema Neurologic: Left facial droop Dysarthric AOx3 Psychiatric: A+Ox3, euthymic affect Results & Data Results & Data ([facility]) Vital Signs (Past 12 Hours) Vital Signs Temp Pulse Pulse Resp BP Pulse Ox 08/14/21 08:33 36.4 C L 99 H 20 116/69 94 08/14/21 08:00 86 08/14/21 04:49 36.6 C 73 20 120/65 97 08/13/21 22:19 70 Laboratory Results Abnormal lab results 08/13/21 08/13/21 Range/Units 11:14 16:47 POC Glucose 106 H 105 H (70-99) mg/dl
[2021-08-15 07:29] LABS: BUN Creatinine Ratio 17.7 (10-20); Calcium 8.9 mg/dl (8.5-10.1); Creatinine Clr Calc Pharmacy 47.7 ml/min; Est GFR (African American) 85.9 ml/min; Est GFR (Non-African American) 74.1 ml/min; Potassium 3.9 mmol/L (3.5-5.1)
[2021-08-15] MEDS: DOXYCYCLINE HYCLATE 100 MG CAP PO SCH (10:03)
[2021-08-15] MEDS: METOPROLOL TARTRATE 25 MG TAB PO SCH (10:03)
[2021-08-15] MEDS: CLOPIDOGREL BISULFATE 75 MG TAB PO SCH (10:04)
[2021-08-15] MEDS: ASPIRIN 81 MG ECTAB PO SCH (10:04)
[2021-08-15] MEDS: ATORVASTATIN 10 MG TAB PO SCH (10:04)
[2021-08-15] MEDS: GABAPENTIN 300 MG CAP PO SCH (10:06)
[2021-08-15] MEDS: INSULIN ASPART 100 UNITS/ML 3 ML PEN SC SCH ×2 (10:11→12:21)
[2021-08-15] MEDS: INSULIN GLARGINE SOLOSTAR 100 UNITS/ML 3 ML PEN SC SCH (10:12)
[2021-08-15] MEDS: DOCUSATE SODIUM 100 MG CAP PO SCH (10:12)
--- NOTE | 2021-08-15 10:37 | Hospitalist Progress Note ---
Date of Service August 15, 2021 Assessment & Plan (1) Dysarthria: Plan: Presented on admission with strokelike symptoms MRI of the brain showed few small acute infarcts within the left external capsule/posterior left basal ganglia. No acute hemorrhage. No mass effect. CTA head and neck showed no significant stenosis, occlusion, or dissection identified within the carotid or vertebral arteries. No acute intracranial abnormality. Neurologist evaluation noted Recommended Plavix and aspirin for 21 days then stop aspirin and continue plavix for a lifetime Continue PT /OT /speech therapy Will need Zio patch outpatient to monitor his rhythm Follow-up with neurology in 4 to 6 weeks Awaiting placement to rehab Elevated troponin Possible related to acute CVA Troponin on admission 0.095 then peak to 2.9, now trending down to 2.5 Cardiology evaluation noted Echo showed no LV wall motion abnormality Patient denies any chest pain Continue Plavix, aspirin, statin Continue monitor closely Diabetes Hemoglobin A1c 6 on 08/11/2021 Well-controlled Continue Lantus and insulin sliding scale Continue monitor BS Hypernatremia Sodium on admission 157 Received IV fluid Hypernatremia resolved Patient lyme test on admission showed Lyme 1gG + Ab as well as western blot Patient denied any known h/o lyme or tick bite Continue doxycycline for lyme disease Monitor leg rash for now DVT prophylaxis. SCDs Re: Hematochezia DNR Disposition Waiting for placement to rehab Patient requests for his brother to be updated of plan of care. Mr. Brian Phan, contact #[phone]. Admission and Anticipated Discharge Date Admission Date: August 12, 2021 Subjective 86-year-old man with history of CAD, hypertension, hyperlipidemia, DM type II, neuropathy who was brought in after a fall and noted to have slurred speech and left facial droop. Being managed for Acute CVA. Patient seen and examined this morning. Reports continuing improvement in his speech Denied any fevers, chills, nausea, vomiting Denied abd pain, diarrhea Denied any headache, dizziness Denies any chest pain, shortness of breath Reports mild chronic cough Reported some itching on the back that resolved after getting cleaned up Physical Exam Constitutional: + well hydrated; no acute distress Eyes: PERRL, conjunctivae normal, anicteric sclerae ENMT: external ear and nose normal, oropharynx normal Respiratory: normal respiratory effort, lungs clear to auscultation Cardiovascular: Rate/Rhythm: regular rate and regular rhythm Gastrointestinal (Abdomen): normal bowel sounds, soft, nontender, no hepatosplenomegaly Musculoskeletal: Some erythematous rash in both feet that seem to worsen slightly over the past few days, non tender, no differential warmth Neurologic: Left facial droop Dysarthric AOx3 Psychiatric: A+Ox3, euthymic affect Results & Data Results & Data ([facility]) Vital Signs (Past 12 Hours) Vital Signs Temp Pulse Pulse Resp BP Pulse Ox 08/15/21 07:20 84 08/15/21 06:57 36.8 C 86 20 148/73 H 93 08/15/21 03:09 36.8 C 62 18 125/56 L 98 08/14/21 23:05 36.5 C 72 20 155/74 H 97 Laboratory Results Abnormal lab results 08/14/21 08/14/21 08/14/21 Range/Units 11:36 16:28 20:05 Chloride (98-107) mmol/L Glucose (70-99) mg/dl POC Glucose 164 H 130 H 131 H (70-99) mg/dl 08/15/21 Range/Units 06:38 Chloride 110 H (98-107) mmol/L Glucose 101 H (70-99) mg/dl POC Glucose (70-99) mg/dl
[2021-08-15] MEDS ORDERED: STROKE PATIENT DISCHARGE STA (10:45)
--- NOTE | 2021-08-15 10:46 | Discharge Summary ---
Date of Service August 15, 2021 Admission HPI Per Admitting Provider History obtained from patient and records. Patient is a fair historian. Medical history significant for CAD, hypertension, hyperlipidemia, DM2 on oral medications, neuropathy as per records, chronic anemia (baseline hemoglobin 12- 13 as of 2013), aspiration risk as per records. Patient had a fall at home yesterday. Feeling weaker than usual. Patient noted to have slurred speech and left-sided facial droop by family yesterday morning. Patient denies headache, chest pain, shortness of breath. No abdominal pain. Episodic hematochezia from constipation, possible hemorrhoids as per patient. Patient sent to the ER for evaluation last night after patient noted to be too weak to get out of chair. 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 Admission Exam Per Admitting Provider GENERAL: Comfortable, pleasant, no respiratory distress SKIN: Pallor, warm HEENT: Partial alopecia, pale palpebral conjunctivae, no ptosis, facial asymmetry, dry buccal mucosa NECK : Supple, no tenderness CHEST : CTA, no tenderness HEART : RRR, no obvious murmurs ABDOMEN: Some distention, nontender RECTAL : Intact sphincter, brown stool admixed with blood (FOBT positive) EXTREMITIES : Chronic RLE swelling, no LE tenderness, no other conspicuous deformities noted NEUROLOGIC : Coherent, slightly hard of hearing, flattened right nasolabial fold, dysarthric, pill-rolling tremors, gait and stance not assessed Principal Diagnosis Acute CVA Discharge Exam Constitutional + well hydrated; no acute distress Eyes PERRL, conjunctivae normal, anicteric sclerae ENMT external ear and nose normal, oropharynx normal Respiratory normal respiratory effort, lungs clear to auscultation Cardiovascular Rate/Rhythm: regular rate and regular rhythm S1 S2 Gastrointestinal (Abdomen) normal bowel sounds, soft, nontender, no hepatosplenomegaly Musculoskeletal Some erythematous rash in both feet, non tender, no differential warmth Neurologic Left facial droop Dysarthric AOx3 Psychiatric A+Ox3, euthymic affect Discharge Data Allergies Allergy/AdvReac Type Severity Reaction Status Date / Time IVP AdvReac Unknown WARM Uncoded 08/11/21 01:46 FEELING Consultations 08/11/21 00:55 ED Decision to Admit Stat 08/11/21 03:12 Consult Neurology Routine 08/11/21 06:50 Consult Cardiology Routine Ordered Studies 08/10/21 22:44 CT angio head w con Urgent CT angio neck with con Urgent CT head/brain wo con Urgent There is no mass, hematoma, midline shift, or acute infarct. Atrophy and microvascular ischemic changes are noted. The calvarium and skull base are intact. The paranasal sinuses and mastoid air cells are clear. Visualized intracranial internal carotid arteries, distal vertebral arteries, and basilar artery are widely patent. There is no significant stenosis, occlusion, or aneurysm seen within the bilateral ACAs, MCAs, or blocker automatic. Calcified plaque within the bilateral carotid siphons. The major dural venous sinuses are patent. The aortic arch and proximal great vessels are widely patent. There is no significant stenosis, occlusion, or dissection identified within the bilateral common carotid, internal carotid, or vertebral arteries. Mild calcified plaque within the left carotid bifurcation. IMPRESSION: 1. No significant stenosis, occlusion, or aneurysm within the mary[place] of [place]. 2. No significant stenosis, occlusion, or dissection identified within the carotid or vertebral arteries. 3. No acute intracranial abnormality 08/11/21 03:12 MR brain wo con Urgent A few small foci of restricted diffusion within the left external capsule/posterior left basal ganglia measure up to 4 mm. There is no acute hemorrhage. There is no mass effect. Basal cisterns are patent. There are no extra-axial collections. Flow-voids for the major intracranial vessels are present. Note is again made of atrophy and extensive white matter T2 hyperintense foci consistent with small vessel disease. Calvarial signal is normal. Small amount of fluid within left mastoid air cells is present. IMPRESSION: 1. 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 No acute hemorrhage. No mass effect. 2. White matter T2 hyperintense foci consistent with small vessel disease. Moderate atrophy. Hospital Course (1) Dysarthria: Presented on admission with strokelike symptoms MRI of the brain showed few small acute infarcts within the left external capsule/posterior left basal ganglia. No acute hemorrhage. No mass effect. CTA head and neck showed no significant stenosis, occlusion, or dissection identified within the carotid or vertebral arteries. No acute intracranial abnormality. Was evaluated by Neurologist Recommended Plavix and aspirin for 21 days then stop aspirin and continue plavix for a lifetime Will need Zio patch outpatient to monitor his rhythm Follow-up with neurology in 4 to 6 weeks Discharged to [facility] to continue PT/OT/MEDICAL RECEPTIONIST Elevated troponin Possible related to acute CVA Troponin on admission 0.095 then peak to 2.9, now trending down to 2.5 Was evaluated by [facility] showed no LV wall motion abnormality Patient denies any chest pain Continue Plavix, aspirin, statin as stated above Diabetes Hemoglobin A1c 6 on 08/11/2021 Well-controlled Continue Lantus and insulin sliding scale Continue monitor BS Patient lyme test on admission showed Lyme 1gG + Ab as well as western blot Patient denied any known h/o lyme or tick bite Continue doxycycline for lyme disease Total Time Total Time Spent Total Time Spent (In Minutes): 50 Total Time Includes: Examination of the Patient, Discharge Planning and Medication Reconciliation Discharge Plan Discharge Items Patient Disposition: Transfer Inpatient Rehab Fac Reason For Visit: DYSARTHRIA Discharge Diagnosis: Acute Cerebrovascular Accident (stroke) Lyme disease Condition on Discharge: Fair Activity: As commented below Activity Comment: Per Physical and speech therapist Non-emergency contact: Primary Care Provider and Neurologist Call non-emergency contact if: you have any medication questions and your symptoms worsen Follow-up/Referrals: Jasmine Elizabeth, [Primary Care Provider] - Diet: Carb Consistent or DM2 and Heart Healthy Diet Texture: Easy to Chew Diet Comment: Slippery,moist diet. Aspiration precautions. Continue MEDICAL RECEPTIONIST services at rehab Addtl Attending Provider Instructions: Mr. Phan. You were brought to the hospital after a fall at home, slurred speech and left- sided facial droop. You were extensively evaluated and found to have a stroke. Your evaluated by neurologist, physical therapist, patient and therapist, speech therapist. You were also evaluated by pcas while in the hospital. You are being discharged to rehab. You are to continue aspirin and clopidogrel [Plavix] for another 16 days (to complete 21 days therapy) after which you stop aspirin and continue only Plavix. You will need a Zio patch testing outpatient to rule out abnormal heart rhythm which could have contributed to stroke. This is very important. This can be arranged with your primary care doctor or cardiology office. Please ensure follow-up with neurology office in 4 to 6 weeks. Please ensure you follow dietary instructions with aspiration precautions as discussed. You will continue to get physical therapy and speech therapy at rehab. You are also discharged on doxycycline for another 8 days for lyme disease It was a pleasure taking care of you. Pending Studies at Discharge: No Stand-Alone Forms: My [facility] Skilled Items Patient informed of condition?: Yes DNR: Yes Discharge Level of Care: Acute rehab Communicable Disease: No Discharge Prognosis: Stable Lines: None Urinary Catheter: No Medications and DC Order Prescriptions: New doxycycline hyclate 100 mg Capsule 100 mg PO BID 8 Days Qty: 16 RF: 0 clopidogrel 75 mg Tablet 75 mg PO QAM 30 Days Qty: 30 RF: 0 Continued furosemide 40 mg tablet 40 mg PO DAILY RF: 0 ketoconazole 2 % shampoo 1 applic TOPICAL .Q3DAYS RF: 0 atorvastatin 10 mg tablet 10 mg PO DAILY RF: 0 famotidine 40 mg tablet 40 mg PO DAILY RF: 0 erythromycin 5 mg/gram (0.5 %) Ointment 1 applic OPHTHALMIC (EYE) HS PRN (Reason: ..) RF: 0 metformin 1,000 mg tablet 1,000 mg PO UD RF: 0 docusate sodium [Colace] 100 mg Capsule 100 mg PO DAILY RF: 0 gabapentin 300 mg capsule 300 mg PO BID RF: 0 ketoconazole 2 % cream 1 applic TOPICAL BID PRN (Reason: FLARE UPS) RF: 0 metoprolol tartrate 25 mg tablet 12.5 mg PO BID RF: 0 aspirin 81 mg Tablet,Delayed Release (Dr/Ec) 81 mg PO DAILY 16 Days Qty: 0 RF: 0 Discontinued meloxicam 15 mg tablet 15 mg PO DAILY RF: 0 Discharge Orders: Discharge Order (Routine); Ordered 08/15/21 Ordered By: Marleni Mcginnis/Other Patient Handouts: A1C, Managing Type 2 Diabetes Admission Data Admit Date/Time: 08/12/21 16:48 Attending Provider: Marleni Sandoval I. Admit Provider: Kwame Mckenzie Primary Care Provider: Jasmine Elizabeth Other Providers: Aminata Scales ; Slim Maynard ; Aminata Weber ; Coy Umanzor ; Fady Shahid ; Crow [place] ; Nicolas Reynolds ; Stef Myers ; Ricardo Hagen ; Jaun Bradford ; Devi Giang ; Aminata Griffith ; Any Wallace ; Raj Deleon ; Kwame Mckenzie ; [facility] ; [facility] [place] ; [place] Other Interventions: Discharge Summary Assessment (RN) Last Done: 08/15/21 12:29
[2021-08-15] MEDS: FAMOTIDINE 40 MG TABLET PO SCH (11:11)
== END 2021-08-15 14:15 | DRG 65 ==
LOC: EDINP 22:25 → ED 22:25 → 2N 08-11 03:10 → SUATTDRO 08-12 16:48
DX: E11.9 Type 2 diabetes mellitus without complications; I69.351 Hemiplegia and hemiparesis following cerebral infarction affecting right dominant side; Z79.82 Long term (current) use of aspirin; I63.81 Other cerebral infarction due to occlusion or stenosis of small artery; I10 Essential (primary) hypertension; R47.1 Dysarthria and anarthria; E87.0 Hyperosmolality and hypernatremia; E78.5 Hyperlipidemia, unspecified; I25.10 Atherosclerotic heart disease of native coronary artery without angina pectoris

== ENCOUNTER 2021-10-30 18:17 | Inpatient (IN) ==
[2021-10-30 18:49] LABS: Influenza A virus by PCR Negative (Negative); Influenza B virus by PCR Negative (Negative)
--- NOTE | 2021-10-30 21:19 | XRay Report ---
XR chest 2V PA/lateral CLINICAL HISTORY: sob. COMPARISON STUDY: 08/12/2021 TECHNIQUE: 2 views of the chest FINDINGS: Frontal and lateral radiographs of the chest demonstrate the cardiomediastinal silhouette to be withi n normal limits. The lungs are clear of alveolar opacities. There is no evidence for effusion bilater ally. There is no evidence for vascular congestion. There is no acute osseous pathology. IMPRESSION: No acute cardiopulmonary disease. ACT 112: Negative or not required by law. Electronically signed by: Elmer Mondragon M.D. 10/30/2021 9:18 PM
[2021-10-30 21:49] LABS: Basophils # (auto) 0.02 K/uL (0-0.2); Basophils % (auto) 0.2 %; Eosinophils # (auto) 0.07 K/uL (0-0.5); Eosinophils % (auto) 0.7 %; Hematocrit (blood only) 40.4 % (42-52); Hemoglobin 12.6 g/dL (14.0-18.0); Immature Granulocytes # (auto) 0.01 K/uL (0.00-0.02); Immature Granulocytes % (auto) 0.1 %; Lymphocytes # (auto) 1.87 K/uL (1.2-3.4); Lymphocytes % (auto) 19.5 %; Mean Corpuscular Hemoglobin 28.4 pg (25-34); Mean Corpuscular Hgb Conc 31.2 g/dL (32-36); Mean Corpuscular Volume 91.2 fL (80-100); Monocytes # (auto) 0.65 K/uL (0.11-0.59); Monocytes % (auto) 6.8 %; Neutrophils # (auto) 6.95 K/uL (1.4-6.5); Neutrophils % (auto) 72.7 %; Platelet Count 321 K/uL (130-400); RDW Coefficient of Variation 15.4 % (11.5-14.5); RDW Standard Deviation 51.4 fL (36.4-46.3); Red Blood Count 4.43 M/uL (4.7-6.1); White Blood Count 9.57 K/uL (4.8-10.8)
[2021-10-30 22:11] LABS: Alanine Aminotransferase 15 U/L (7-52); Albumin Level 4.5 gm/dl (3.4-5.0); Alkaline Phosphatase 91 U/L (34-104); Anion Gap 9 (3-11); BUN Creatinine Ratio 18.4 (10-20); Bilirubin,Total 0.5 mg/dl (0.2-1.0); Blood Urea Nitrogen 18 mg/dl (6-23); Calcium 9.8 mg/dl (8.5-10.1); Carbon Dioxide 29 mmol/L (21-32); Chloride 100 mmol/L (98-107); Creatinine Clr Calc Pharmacy 51.4 ml/min; Est GFR (African American) 80.6 ml/min; Est GFR (Non-African American) 69.5 ml/min; Globulin 4.3 gm/dl (2.5-4.0); Glucose 97 mg/dl (70-99(Fasting)); Sodium 138 mmol/L (136-145); Total Protein 8.8 gm/dl (6.0-8.3)
--- NOTE | 2021-10-30 22:11 | Emergency Department Note ---
Impression & Plan Weakness, Dysarthria, Anemia, History of cerebrovascular accident, Otitis ED Provider Note NAME: LETICIA JORDAN AGE: 86 SEX: M : 1935 ARRIVES VIA: Ambulance INFORMANT: Patient, ED PROVIDER(S): Germán Pinon MD Chief Complaint: Weakness HPI: Patient presents from home due to concern for weakness. Patient states that this primarily occurred over the last 48 hours. Patient has any fevers chills chest pain shortness of breath nausea or vomiting. Patient states that he did have a stroke patient states he did not have any residual symptoms. The patient believes that he might of had a change in his speech about 2 weeks ago. The patient did go to [facility] and subsequently was discharged home. The patient states he does have home health that comes in 5 days a week but states that today he can even get out of his chair. Patient denies any vomiting or diarrhea. Patient denies any alcohol tobacco or drug use. Patient denies any abdominal pain or chest pain. Patient denies any new weakness. ROS: See HPI for pertinent positives and negatives. A total of 10 systems were reviewed and otherwise negative. Past medical history: See below Surgical history: See below Social history: See below Physical Exam: GENERAL: NAD, wearing a mask, non-toxic. EYE EXAM: Normal conjunctiva. PERRL, no anisocoria and EOM's grossly intact w/o pain. NECK: Supple, no nuchal rigidity, no adenopathy, non-tender. No signs of meningismus. LUNGS: Clear to auscultation. Normal chest wall mechanics. HEART: NSR, no MRG. ABDOMEN: Abdomen soft, non-tender, normo-active bowel sounds, no masses, no rebound or guarding. BACK: No CVA TTP. SKIN: No rashes and no bruising. UPPER EXTREMITIES: Upper extremities are grossly normal. LOWER EXTREMITIES: Grossly normal, right greater than left lower extremity edema . Compartments are soft and neurovascular intact NEURO EXAM: Awake and alert, possible dysarthria, moves all 4 extremities. Differential diagnoses: Infection, dehydration, metabolic abnormality, hyp o/hyperglycemia, electrolyte disturbance, anemia, hypoxia, cardiac sources, intracerebral event, toxicologic, neurologic, as well as other pathologies. Course: Patient was seen and evaluated the bedside. Full history physical exam was performed. EKG interpreted by me Significant motion artifact, sinus, rate of 91, left axis deviation, no obvious ST elevations. Imaging Studies: See Below CT head negative for ICH or edema. Fluid noted within the left middle ear as well as the mastoid. Cardiac monitoring: An order was placed for continuous cardiac monitoring. The monitor shows a rate of 88 with sinus rhythm. MDM: Patient was seen due to concern for generalized weakness. The patient also related that he had some questionable change in speech beginning about 2 weeks prior. Patient does have a history of prior stroke back in August. Upon reviewing the patient's chart back in July patient did have dysarthria at the time that he was evaluated. The patient did have an MRI of the brain which showed that he had small acute infarcts of the left external capsule and posterior left basal ganglia without any acute hemorrhage or mass-effect. Of note the patient did have right greater than left lower extremity edema but patient states that this is chronic in nature. Patient has no calf pain and no redness. The patient denies any chest pains or shortness of breath. Given the patient's more profound weakness and the fact that he lives by himself do not think that he is suitable for discharge or safe for discharge at this time. Patient may benefit from a repeat stay at rehab as the patient was at [facility] in the past. I did speak with the on-call hospitalist Dr. Mckenzie the patient was admitted to the medicine service. CT of the head was pending at the time of admission. Patient CT with no ICH mass-effect or edema. The patient does have some fluid within the left middle ear. The patient had related that he was not hearing as well from that left ear. Upon evaluation the patient does have some fluid emanating from the left EAC. Difficult to ascertain if the tympanic membrane is still intact but does not appear to be so. Patient was ordered Unasyn. Past Med/Surg History Medical History Diabetes High blood pressure Surgical History History of appendectomy Social History Smoking Status: Never smoker Hx Alcohol Use: No Hx Substance Use: No Preferred Language: Sammarinese Communication Ability: Effective Medicare Biller Required: No Beliefs That Will Affect Care: None Current Living Situation: Alone Feels Safe at Home: Yes Assistive Devices: Walker Allergies Allergies Allergy/AdvReac Type Severity Reaction Status Date / Time carbamazepine Allergy Unknown Unknown Verified 10/30/21 22:52 Iodinated Contrast Media Allergy Unknown warm Verified 10/30/21 22:52 feeling lisinopril AdvReac Hypotension Verified 10/30/21 22:52 Home Meds Home Medications Medication Instructions Recorded Confirmed atorvastatin 10 mg tablet 10 mg PO DAILY 08/11/21 10/30/21 docusate sodium 100 mg capsule 100 mg PO DAILY 08/11/21 10/30/21 (Colace) erythromycin 5 mg/gram (0.5 %) eye 1 applic OPHTHALMIC (EYE) HS 08/11/21 10/30/21 ointment famotidine 40 mg tablet 40 mg PO DAILY 08/11/21 10/30/21 furosemide 40 mg tablet 40 mg PO DAILY PRN 08/11/21 10/30/21 gabapentin 300 mg capsule 300 mg PO BID 08/11/21 10/30/21 ketoconazole 2 % shampoo 1 applic TOPICAL UD 08/11/21 10/30/21 ketoconazole 2 % topical cream 1 applic TOPICAL BID PRN 08/11/21 10/30/21 metformin 1,000 mg tablet 1,000 mg PO BID 08/11/21 10/30/21 metoprolol tartrate 25 mg tablet 12.5 mg PO BID 08/11/21 10/30/21 clopidogrel 75 mg tablet 75 mg PO DAILY 10/30/21 10/30/21 ergocalciferol (vitamin D2) 50,000 50,000 unit PO WK 10/30/21 10/30/21 unit tablet ferrous sulfate 325 mg (65 mg 325 mg PO AMHS 10/30/21 10/30/21 iron) tablet silver sulfadiazine 1 % topical 1 applic TOPICAL DAILY 10/30/21 10/30/21 cream (Silvadene) Results & Data (ED) Vital Signs Vital Signs - 24 hr 10/30/21 18:19 10/30/21 21:31 10/30/21 22:13 Temperature 36.9 C Temperature Source Temporal Artery Scan Pulse Rate 94 H Pulse Rate [Apical] 90 Pulse Rate [Finger] 91 H Pulse Rhythm [Apical] Regular Pulse Strength [Apical] Normal Respiratory Rate 20 20 22 Respiratory Effort / Characteristics Non-Labored Spontaneous Non-Labored Spontaneous Non-Labored Spontaneous Respiratory Depth Normal Normal Normal Respiratory Pattern Regular Regular Blood Pressure 119/68 Blood Pressure [Right Arm] 135/82 141/73 H Blood Pressure Mean 85 Blood Pressure Mean [Right Arm] 99 95 Blood Pressure Position [Right Arm] Lying Pulse Oximetry 95 95 96 Oxygen Delivery Method Room Air Room Air Room Air Sepsis Recent Fever Within 48 Hours Yes Sepsis New/Unexplained Change in Mental Status No Sepsis Action Taken by Nursing No Action Required 10/31/21 00:21 Temperature Temperature Source Pulse Rate Pulse Rate [Apical] 84 Pulse Rate [Finger] Pulse Rhythm [Apical] Regular Pulse Strength [Apical] Normal Respiratory Rate 22 Respiratory Effort / Characteristics Non-Labored Spontaneous Respiratory Depth Normal Respiratory Pattern Regular Blood Pressure Blood Pressure [Right Arm] 130/62 Blood Pressure Mean Blood Pressure Mean [Right Arm] 84 Blood Pressure Position [Right Arm] Lying Pulse Oximetry 98 Oxygen Delivery Method Room Air Sepsis Recent Fever Within 48 Hours Sepsis New/Unexplained Change in Mental Status Sepsis Action Taken by Custodial Medications Current Medication List: was personally reviewed by me Laboratory Data Attestation: I reviewed the patient's lab results. Result diagrams: 10/30/21 21:31 10/30/21 22:39 Lab Results 10/30/21 10/30/21 10/30/21 Range/Units 18:21 18:21 21:31 WBC 9.57 (4.8-10.8) K/uL RBC 4.43 L (4.7-6.1) M/uL Hgb 12.6 L (14.0-18.0) g/dL Hct 40.4 L (42-52) % MCV 91.2 (80-100) fL MCH 28.4 (25-34) pg MCHC 31.2 L (32-36) g/dL RDW Std Deviation 51.4 H (36.4-46.3) fL RDW Coeff of Carmen 15.4 H (11.5-14.5) % Plt Count 321 (130-400) K/uL MPV 11.0 H (7.4-10.4) fL Immature Gran % (Auto) 0.1 % Neut % (Auto) 72.7 % Lymph % (Auto) 19.5 % Dickinson % (Auto) 6.8 % Eos % (Auto) 0.7 % Baso % (Auto) 0.2 % Neut # (Auto) 6.95 H (1.4-6.5) K/uL Lymph # (Auto) 1.87 (1.2-3.4) K/uL Dickinson # (Auto) 0.65 H (0.11-0.59) K/uL Eos # (Auto) 0.07 (0-0.5) K/uL Baso # (Auto) 0.02 (0-0.2) K/uL Immature Gran # (Auto) 0.01 (0.00-0.02) K/uL Sodium (136-145) mmol/L Potassium Chloride (98-107) mmol/L Carbon Dioxide (21-32) mmol/L Anion Gap (3-11) BUN (6-23) mg/dl Creatinine (0.6-1.4) mg/dl Est Cr Clr Drug Dosing ml/min Est GFR ( Amer) ml/min Est GFR (Non-Af Amer) ml/min BUN/Creatinine Ratio (10-20) Glucose (70-99(Fasting)) mg/dl Calcium (8.5-10.1) mg/dl Magnesium (1.7-2.4) mg/dl Total Bilirubin (0.2-1.0) mg/dl AST ALT (7-52) U/L Alkaline Phosphatase (34-104) U/L Total Protein (6.0-8.3) gm/dl Albumin (3.4-5.0) gm/dl Globulin (2.5-4.0) gm/dl Albumin/Globulin Ratio (0.9-2) TSH (0.300-4.500) uIu/ml Influ A Molecular Assay Negative (Negative) Influ B Molecular Assay Negative (Negative) SARS-CoV-2, RNA, NAAT NEGATIVE (NEGATIVE) 10/30/21 10/30/21 10/30/21 Range/Units 21:31 22:39 23:55 WBC (4.8-10.8) K/uL RBC (4.7-6.1) M/uL Hgb (14.0-18.0) g/dL Hct (42-52) % MCV (80-100) fL MCH (25-34) pg MCHC (32-36) g/dL RDW Std Deviation (36.4-46.3) fL RDW Coeff of Carmen (11.5-14.5) % Plt Count (130-400) K/uL MPV (7.4-10.4) fL Immature Gran % (Auto) % Neut % (Auto) % Lymph % (Auto) % Dickinson % (Auto) % Eos % (Auto) % Baso % (Auto) % Neut # (Auto) (1.4-6.5) K/uL Lymph # (Auto) (1.2-3.4) K/uL Dickinson # (Auto) (0.11-0.59) K/uL Eos # (Auto) (0-0.5) K/uL Baso # (Auto) (0-0.2) K/uL Immature Gran # (Auto) (0.00-0.02) K/uL Sodium 138 (136-145) mmol/L Potassium TNP 4.1 Chloride 100 (98-107) mmol/L Carbon Dioxide 29 (21-32) mmol/L Anion Gap 9 (3-11) BUN 18 (6-23) mg/dl Creatinine 0.98 (0.6-1.4) mg/dl Est Cr Clr Drug Dosing 51.4 ml/min Est GFR ( Amer) 80.6 ml/min Est GFR (Non-Af Amer) 69.5 ml/min BUN/Creatinine Ratio 18.4 (10-20) Glucose 97 (70-99(Fasting)) mg/dl Calcium 9.8 (8.5-10.1) mg/dl Magnesium 1.7 (1.7-2.4) mg/dl Total Bilirubin 0.5 (0.2-1.0) mg/dl AST TNP 17 ALT 15 (7-52) U/L Alkaline Phosphatase 91 (34-104) U/L Total Protein 8.8 H (6.0-8.3) gm/dl Albumin 4.5 (3.4-5.0) gm/dl Globulin 4.3 H (2.5-4.0) gm/dl Albumin/Globulin Ratio 1.0 (0.9-2) TSH (0.300-4.500) uIu/ml Influ A Molecular Assay (Negative) Influ B Molecular Assay (Negative) SARS-CoV-2, RNA, NAAT (NEGATIVE) 10/30/21 Range/Units 23:55 WBC (4.8-10.8) K/uL RBC (4.7-6.1) M/uL Hgb (14.0-18.0) g/dL Hct (42-52) % MCV (80-100) fL MCH (25-34) pg MCHC (32-36) g/dL RDW Std Deviation (36.4-46.3) fL RDW Coeff of Carmen (11.5-14.5) % Plt Count (130-400) K/uL MPV (7.4-10.4) fL Immature Gran % (Auto) % Neut % (Auto) % Lymph % (Auto) % Dickinson % (Auto) % Eos % (Auto) % Baso % (Auto) % Neut # (Auto) (1.4-6.5) K/uL Lymph # (Auto) (1.2-3.4) K/uL Dickinson # (Auto) (0.11-0.59) K/uL Eos # (Auto) (0-0.5) K/uL Baso # (Auto) (0-0.2) K/uL Immature Gran # (Auto) (0.00-0.02) K/uL Sodium (136-145) mmol/L Potassium Chloride (98-107) mmol/L Carbon Dioxide (21-32) mmol/L Anion Gap (3-11) BUN (6-23) mg/dl Creatinine (0.6-1.4) mg/dl Est Cr Clr Drug Dosing ml/min Est GFR ( Amer) ml/min Est GFR (Non-Af Amer) ml/min BUN/Creatinine Ratio (10-20) Glucose (70-99(Fasting)) mg/dl Calcium (8.5-10.1) mg/dl Magnesium (1.7-2.4) mg/dl Total Bilirubin (0.2-1.0) mg/dl AST ALT (7-52) U/L Alkaline Phosphatase (34-104) U/L Total Protein (6.0-8.3) gm/dl Albumin (3.4-5.0) gm/dl Globulin (2.5-4.0) gm/dl Albumin/Globulin Ratio (0.9-2) TSH 1.715 (0.300-4.500) uIu/ml Influ A Molecular Assay (Negative) Influ B Molecular Assay (Negative) SARS-CoV-2, RNA, NAAT (NEGATIVE) Administered Medications Discontinued Medications Sodium Chloride (Nss 1000ml) 1,000 mls @ 500 mls/hr IV .Q2H ONE Stop: 10/31/21 00:35 Last Admin: 10/30/21 22:59 Dose: 500 mls/hr Documented by: [id number] Imaging Data Radiologist's Impression: Chest X-Ray 10/30/21 18:22 XR chest 2V PA/lateral CLINICAL HISTORY: sob. COMPARISON STUDY: 08/12/2021 TECHNIQUE: 2 views of the chest FINDINGS: Frontal and lateral radiographs of the chest demonstrate the cardiomediastinal silhouette to be within normal limits. The lungs are clear of alveolar opacities. There is no evidence for effusion bilaterally. There is no evidence for vascular congestion. There is no acute osseous pathology. IMPRESSION: No acute cardiopulmonary disease. ACT 112: Negative or not required by law. Electronically signed by: Elmer Mondragon M.D. 10/30/2021 9:18 PM Discharge Plan Visit Data Chief Complaint: Illness Stated Complaint: FLU SX, FEVER, ED Provider: Germán Pinon Discharge Problem: Weakness, Dysarthria, Anemia, History of cerebrovascular accident, Otitis Forms Stand Alone Forms: My [facility] Prescriptions Prescriptions: No Action furosemide 40 mg tablet 40 mg PO DAILY PRN (Reason: leg swelling) RF: 0 ketoconazole 2 % shampoo 1 applic TOPICAL UD RF: 0 atorvastatin 10 mg tablet 10 mg PO DAILY RF: 0 famotidine 40 mg tablet 40 mg PO DAILY RF: 0 erythromycin 5 mg/gram (0.5 %) Ointment 1 applic OPHTHALMIC (EYE) HS RF: 0 metformin 1,000 mg tablet 1,000 mg PO BID RF: 0 docusate sodium [Colace] 100 mg Capsule 100 mg PO DAILY RF: 0 gabapentin 300 mg capsule 300 mg PO BID RF: 0 ketoconazole 2 % cream 1 applic TOPICAL BID PRN (Reason: FLARE UPS) RF: 0 metoprolol tartrate 25 mg tablet 12.5 mg PO BID RF: 0 ferrous sulfate 325 mg (65 mg iron) Tablet 325 mg PO AMHS RF: 0 clopidogrel 75 mg tablet 75 mg PO DAILY RF: 0 ergocalciferol (vitamin D2) 50,000 unit Tablet 50,000 unit PO WK RF: 0 silver sulfadiazine [Silvadene] 1 % Cream 1 applic TOPICAL DAILY RF: 0 Referrals Referrals: Jasmine Elizabeth DO [Primary Care Provider] - Discharge Problem: Anemia Qualifiers: Anemia type: unspecified type Qualified Code(s): D64.9 - Anemia, unspecified Otitis Qualifiers: Laterality: left Qualified Code(s): H66.92 - Otitis media, unspecified, left ear
[2021-10-30] MEDS ORDERED: SODIUM CHLORIDE 0.9% 1000ML 1,000 ML IV ONE (22:36)
[2021-10-30 23:06] LABS: Potassium 4.1 mmol/L (3.5-5.1)
[2021-10-31] MEDS ORDERED: AMPICILLIN/SULBACTAM SOD 3,000 MG in 0.9 % SODIUM CHLORIDE 100 ML IV STA (01:28)
--- NOTE | 2021-10-31 03:21 | History & Physical Report ---
Date of Service October 31, 2021 Assessment & Plan (1) Weakness: Plan: In the setting of a bacterial ear infection No sepsis for now Rule out UTI hx CAD/CVA as per records hypertension, stable hyperlipidemia on statin Rx DM2 on oral medications, well-controlled as of recent hemoglobin A1c of 6.1, September 2021 chronic anemia, hemoglobin at baseline RLE swelling rule out DVT OBS GMF Augmentin for acute otitis media left Check UA RLE Doppler showed no DVT Basal insulin, ISS BG goal 1 10-1 40, carb count coverage PT OT eval DVT prophylaxis. Lovenox DNR Patient requests for his brother to be updated of plan of care. Mr. Brian Phan, contact #[phone]. Text document was generated using [employer] voice recognition software. It may contain grammatical or spelling errors. Kindly contact undersigned for clarification of any documentation item in question. History of Present Illness Chief Complaint: Weakness, could not get out of the chair. Primary Care Provider: Jasmine Elizabeth DO History obtained from patient and records. Patient is a fair historian. Medical history significant for CAD, CVA, hypertension, hyperlipidemia, DM2 diet-controlled, neuropathy as per records, chronic anemia (baseline hemoglobin 12), aspiration risk as per records. Last confinement July 2021 for acute CVA. Patient presented with dysarthria symptoms. Patient discharged on antiplatelet Rx. 2 days history of generalized weakness and upper respiratory infection. Cough, shortness, body aches as per outpatient documentation. Patient too weak to walk. Denies headache symptoms. Patient brought to ER for evaluation. Unasyn given for otitis media. 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 Allergies Allergy/AdvReac Type Severity Reaction Status Date / Time Iodinated Contrast Media Allergy Mild warm Verified 10/31/21 06:00 feeling carbamazepine Allergy Unknown Unknown Verified 10/30/21 22:52 lisinopril AdvReac Mild Hypotension Verified 10/31/21 06:00 Home Medications Medication Instructions Recorded Confirmed Type atorvastatin 10 mg tablet 10 mg PO DAILY 08/11/21 10/30/21 History docusate sodium 100 mg capsule 100 mg PO DAILY 08/11/21 10/30/21 History (Colace) erythromycin 5 mg/gram (0.5 %) eye 1 applic OPHTHALMIC (EYE) HS 08/11/21 10/30/21 History ointment famotidine 40 mg tablet 40 mg PO DAILY 08/11/21 10/30/21 History furosemide 40 mg tablet 40 mg PO DAILY PRN 08/11/21 10/30/21 History gabapentin 300 mg capsule 300 mg PO BID 08/11/21 10/30/21 History ketoconazole 2 % shampoo 1 applic TOPICAL UD 08/11/21 10/30/21 History ketoconazole 2 % topical cream 1 applic TOPICAL BID PRN 08/11/21 10/30/21 History metformin 1,000 mg tablet 1,000 mg PO BID 08/11/21 10/30/21 History metoprolol tartrate 25 mg tablet 12.5 mg PO BID 08/11/21 10/30/21 History clopidogrel 75 mg tablet 75 mg PO DAILY 10/30/21 10/30/21 History ergocalciferol (vitamin D2) 50,000 50,000 unit PO WK 10/30/21 10/30/21 History unit tablet ferrous sulfate 325 mg (65 mg 325 mg PO AMHS 10/30/21 10/30/21 History iron) tablet silver sulfadiazine 1 % topical 1 applic TOPICAL DAILY 10/30/21 10/30/21 History cream (Silvadene) Past Med/Surg History Medical History (Updated 10/31/21 @ 16:39 by Karolina Wynn PA-C) Diabetes Diabetes mellitus, type II High blood pressure Surgical History History of appendectomy Social History Smoking Status: Never smoker Hx Alcohol Use: No Hx Substance Use: No Preferred Language: Moroccan Communication Ability: Effective Sales Mgr Required: No Beliefs That Will Affect Care: None marital status: Single Current Living Situation: Alone How many Children do You have: 0 Other Information That Helps Us Care for You: No Feels Safe at Home: Yes Assistive Devices: Walker Review of Systems Review of Systems: Somewhat limited due to chronic dysarthria Physical Exam Physical Exam: GENERAL: Slightly hard of hearing, chronic dysarthria, no respiratory distress SKIN: Pallor, warm HEENT: Partial alopecia, pale palpebral conjunctivae, no ptosis, facial asymmetry, dry buccal mucosa; yellow discharge noted from left ear canal, TM not visualized NECK : Supple, no tenderness CHEST : CTA, no tenderness HEART : RRR, no obvious murmurs ABDOMEN: Some distention, nontender EXTREMITIES :RLE swelling, no LE tenderness, no other conspicuous deformities noted NEUROLOGIC : Coherent, slightly hard of hearing, chronic dysarthria, gait and stance not assessed Results & Data Results & Data ([facility]) Vital Signs (Past 12 Hours) Vital Signs Temp Pulse Pulse Pulse Resp BP BP 10/31/21 00:21 84 22 130/62 10/30/21 22:13 90 22 141/73 H 10/30/21 21:31 91 H 20 135/82 10/30/21 18:19 36.9 C 94 H 20 119/68 Pulse Ox 10/31/21 00:21 98 10/30/21 22:13 96 10/30/21 21:31 95 10/30/21 18:19 95 Laboratory Results Lab Results 10/30/21 10/30/21 10/30/21 Range/Units 18:21 18:21 21:31 WBC 9.57 (4.8-10.8) K/uL RBC 4.43 L (4.7-6.1) M/uL Hgb 12.6 L (14.0-18.0) g/dL Hct 40.4 L (42-52) % MCV 91.2 (80-100) fL MCH 28.4 (25-34) pg MCHC 31.2 L (32-36) g/dL RDW Std Deviation 51.4 H (36.4-46.3) fL RDW Coeff of Carmen 15.4 H (11.5-14.5) % Plt Count 321 (130-400) K/uL MPV 11.0 H (7.4-10.4) fL Immature Gran % (Auto) 0.1 % Neut % (Auto) 72.7 % Lymph % (Auto) 19.5 % [place] % (Auto) 6.8 % Eos % (Auto) 0.7 % Baso % (Auto) 0.2 % Neut # (Auto) 6.95 H (1.4-6.5) K/uL Lymph # (Auto) 1.87 (1.2-3.4) K/uL [place] # (Auto) 0.65 H (0.11-0.59) K/uL Eos # (Auto) 0.07 (0-0.5) K/uL Baso # (Auto) 0.02 (0-0.2) K/uL Immature Gran # (Auto) 0.01 (0.00-0.02) K/uL Sodium (136-145) mmol/L Potassium Chloride (98-107) mmol/L Carbon Dioxide (21-32) mmol/L Anion Gap (3-11) BUN (6-23) mg/dl Creatinine (0.6-1.4) mg/dl Est Cr Clr Drug Dosing ml/min Est GFR ( Amer) ml/min Est GFR (Non-Af Amer) ml/min BUN/Creatinine Ratio (10-20) Glucose (70-99(Fasting)) mg/dl POC Glucose (70-99) mg/dl Calcium (8.5-10.1) mg/dl Magnesium (1.7-2.4) mg/dl Total Bilirubin (0.2-1.0) mg/dl AST ALT (7-52) U/L Alkaline Phosphatase (34-104) U/L Troponin I (0-0.04) ng/ml Total Protein (6.0-8.3) gm/dl Albumin (3.4-5.0) gm/dl Globulin (2.5-4.0) gm/dl Albumin/Globulin Ratio (0.9-2) TSH (0.300-4.500) uIu/ml Influ A Molecular Assay Negative (Negative) Influ B Molecular Assay Negative (Negative) SARS-CoV-2, RNA, NAAT NEGATIVE (NEGATIVE) 10/30/21 10/30/21 10/30/21 Range/Units 21:31 22:39 23:55 WBC (4.8-10.8) K/uL RBC (4.7-6.1) M/uL Hgb (14.0-18.0) g/dL Hct (42-52) % MCV (80-100) fL MCH (25-34) pg MCHC (32-36) g/dL RDW Std Deviation (36.4-46.3) fL RDW Coeff of Carmen (11.5-14.5) % Plt Count (130-400) K/uL MPV (7.4-10.4) fL Immature Gran % (Auto) % Neut % (Auto) % Lymph % (Auto) % [place] % (Auto) % Eos % (Auto) % Baso % (Auto) % Neut # (Auto) (1.4-6.5) K/uL Lymph # (Auto) (1.2-3.4) K/uL [place] # (Auto) (0.11-0.59) K/uL Eos # (Auto) (0-0.5) K/uL Baso # (Auto) (0-0.2) K/uL Immature Gran # (Auto) (0.00-0.02) K/uL Sodium 138 (136-145) mmol/L Potassium TNP 4.1 Chloride 100 (98-107) mmol/L Carbon Dioxide 29 (21-32) mmol/L Anion Gap 9 (3-11) BUN 18 (6-23) mg/dl Creatinine 0.98 (0.6-1.4) mg/dl Est Cr Clr Drug Dosing 51.4 ml/min Est GFR ( Amer) 80.6 ml/min Est GFR (Non-Af Amer) 69.5 ml/min BUN/Creatinine Ratio 18.4 (10-20) Glucose 97 (70-99(Fasting)) mg/dl POC Glucose (70-99) mg/dl Calcium 9.8 (8.5-10.1) mg/dl Magnesium 1.7 (1.7-2.4) mg/dl Total Bilirubin 0.5 (0.2-1.0) mg/dl AST TNP 17 ALT 15 (7-52) U/L Alkaline Phosphatase 91 (34-104) U/L Troponin I (0-0.04) ng/ml Total Protein 8.8 H (6.0-8.3) gm/dl Albumin 4.5 (3.4-5.0) gm/dl Globulin 4.3 H (2.5-4.0) gm/dl Albumin/Globulin Ratio 1.0 (0.9-2) TSH (0.300-4.500) uIu/ml Influ A Molecular Assay (Negative) Influ B Molecular Assay (Negative) SARS-CoV-2, RNA, NAAT (NEGATIVE) 10/30/21 10/30/21 10/31/21 Range/Units 23:55 23:55 06:43 WBC (4.8-10.8) K/uL RBC (4.7-6.1) M/uL Hgb (14.0-18.0) g/dL Hct (42-52) % MCV (80-100) fL MCH (25-34) pg MCHC (32-36) g/dL RDW Std Deviation (36.4-46.3) fL RDW Coeff of Carmen (11.5-14.5) % Plt Count (130-400) K/uL MPV (7.4-10.4) fL Immature Gran % (Auto) % Neut % (Auto) % Lymph % (Auto) % [place] % (Auto) % Eos % (Auto) % Baso % (Auto) % Neut # (Auto) (1.4-6.5) K/uL Lymph # (Auto) (1.2-3.4) K/uL [place] # (Auto) (0.11-0.59) K/uL Eos # (Auto) (0-0.5) K/uL Baso # (Auto) (0-0.2) K/uL Immature Gran # (Auto) (0.00-0.02) K/uL Sodium (136-145) mmol/L Potassium Chloride (98-107) mmol/L Carbon Dioxide (21-32) mmol/L Anion Gap (3-11) BUN (6-23) mg/dl Creatinine (0.6-1.4) mg/dl Est Cr Clr Drug Dosing ml/min Est GFR ( Amer) ml/min Est GFR (Non-Af Amer) ml/min BUN/Creatinine Ratio (10-20) Glucose (70-99(Fasting)) mg/dl POC Glucose 89 (70-99) mg/dl Calcium (8.5-10.1) mg/dl Magnesium (1.7-2.4) mg/dl Total Bilirubin (0.2-1.0) mg/dl AST ALT (7-52) U/L Alkaline Phosphatase (34-104) U/L Troponin I < 0.03 (0-0.04) ng/ml Total Protein (6.0-8.3) gm/dl Albumin (3.4-5.0) gm/dl Globulin (2.5-4.0) gm/dl Albumin/Globulin Ratio (0.9-2) TSH 1.715 (0.300-4.500) uIu/ml Influ A Molecular Assay (Negative) Influ B Molecular Assay (Negative) SARS-CoV-2, RNA, NAAT (NEGATIVE) 10/31/21 10/31/21 Range/Units 12:05 17:01 WBC (4.8-10.8) K/uL RBC (4.7-6.1) M/uL Hgb (14.0-18.0) g/dL Hct (42-52) % MCV (80-100) fL MCH (25-34) pg MCHC (32-36) g/dL RDW Std Deviation (36.4-46.3) fL RDW Coeff of Carmen (11.5-14.5) % Plt Count (130-400) K/uL MPV (7.4-10.4) fL Immature Gran % (Auto) % Neut % (Auto) % Lymph % (Auto) % [place] % (Auto) % Eos % (Auto) % Baso % (Auto) % Neut # (Auto) (1.4-6.5) K/uL Lymph # (Auto) (1.2-3.4) K/uL [place] # (Auto) (0.11-0.59) K/uL Eos # (Auto) (0-0.5) K/uL Baso # (Auto) (0-0.2) K/uL Immature Gran # (Auto) (0.00-0.02) K/uL Sodium (136-145) mmol/L Potassium Chloride (98-107) mmol/L Carbon Dioxide (21-32) mmol/L Anion Gap (3-11) BUN (6-23) mg/dl Creatinine (0.6-1.4) mg/dl Est Cr Clr Drug Dosing ml/min Est GFR ( Amer) ml/min Est GFR (Non-Af Amer) ml/min BUN/Creatinine Ratio (10-20) Glucose (70-99(Fasting)) mg/dl POC Glucose 131 H 84 (70-99) mg/dl Calcium (8.5-10.1) mg/dl Magnesium (1.7-2.4) mg/dl Total Bilirubin (0.2-1.0) mg/dl AST ALT (7-52) U/L Alkaline Phosphatase (34-104) U/L Troponin I (0-0.04) ng/ml Total Protein (6.0-8.3) gm/dl Albumin (3.4-5.0) gm/dl Globulin (2.5-4.0) gm/dl Albumin/Globulin Ratio (0.9-2) TSH (0.300-4.500) uIu/ml Influ A Molecular Assay (Negative) Influ B Molecular Assay (Negative) SARS-CoV-2, RNA, NAAT (NEGATIVE) Diagnostic Findings CT head initial read: No ICH, mass effect or edema. No evidence of acute cortical stroke. Periventricular small vessel ischemic change. Mild to moderate generalized brain atrophy. Visualized sinuses reviewmucosal thickening involving the bilateral maxillarysinuses. There is fluid within the left middle ear structure with opacification of the external auditorycanal and fluid within the left mastoid, a combination of findings suggestive of inflammatoryprocess. Clinical correlation recommended. Chest x-ray as per my interpretation no congestion EKG as per my interpretation : Rate 90, NSR, LAD, LAFB, short TN, delta wave, multiple artifacts
[2021-10-31] MEDS ORDERED: GLUCOSE 40% GEL 15 GM TUBE PO PRN (05:48)
[2021-10-31] MEDS ORDERED: CARBOHYDRATES FOR HYPOGLYCEMIA PO PRN (05:48)
[2021-10-31] MEDS ORDERED: DEXTROSE 50% 50 ML SYRINGE IV PRN (05:48)
[2021-10-31] MEDS ORDERED: GLUCOSE 10 TABS/TUBE PO PRN (05:48)
[2021-10-31] MEDS ORDERED: ACETAMINOPHEN 325 MG TAB PO PRN (05:48)
[2021-10-31] MEDS ORDERED: GLUCAGON FOR INJ 1 MG VIAL SQ PRN (05:48)
--- NOTE | 2021-10-31 06:32 | Ultrasound Report ---
RIGHT LOWER EXTREMITY VENOUS DOPPLER CLINICAL HISTORY: Right lower extremity swelling. COMPARISON STUDY: No previous studies for comparison. TECHNIQUE: Sonography of the deep venous system of the right lower extremity was performed. Compress ion and augmentation were evaluated. FINDINGS: The right common femoral, superficial femoral and popliteal veins were compressible. Augme ntation was normal. Flow was shown within the deep calf vessels. IMPRESSION: No evidence of deep venous thrombus within the right lower extremity. ACT 112: Negative or not required by law. Electronically signed by: Dylon Barrientos M.D. 10/31/2021 6:31 AM
[2021-10-31] MEDS: INSULIN ASPART PER UNIT SC SCH ×4 (06:46→21:02)
--- NOTE | 2021-10-31 07:49 | CT Scan Report ---
CT OF THE HEAD WITHOUT CONTRAST CLINICAL HISTORY: h/o CVA, ?new dysarthria in last 2 weeks COMPARISON STUDY: Head CT and CTA of the head August 10, 2021. MRI of the brain August 11, 2021. CT DOSE: 614.27 mGy.cm TECHNIQUE: Helical axial images of the head were obtained without IV contrast. Automated exposure con trol was utilized for the study. A dose lowering technique was utilized adhering to the principles o f ALARA. FINDINGS: No acute intracranial hemorrhage, midline shift or mass effect is present. Ventricular syst em is stable. Basal cisterns are patent. There are no extra-axial collections. White matter hypodensi ty suggests small vessel disease. There are no findings to suggest acute dural sinus thrombosis or ac chandra territorial infarct. There is no calvarial fracture. Minimal ethmoid sinus mucosal thickening is present. Left mastoid air cells are largely opacified. There is fluid within the left middle ear. The se findings are new since head CT of August 10, 2021. IMPRESSION: 1. No acute intracranial findings. 2. Interval development of a left mastoid effusion and fluid within the left middle ear. The findings could reflect otomastoiditis. ACT 112: Negative or not required by law. Electronically signed by: Dylon Barrientos M.D. 10/31/2021 7:48 AM
[2021-10-31] MEDS ORDERED: AMOXICILLIN/CLAVULANATE 875 MG TAB PO SCH (08:00)
[2021-10-31] MEDS: CLOPIDOGREL BISULFATE 75 MG TAB PO SCH (09:00)
[2021-10-31] MEDS: ATORVASTATIN 10 MG TAB PO SCH (09:00)
[2021-10-31] MEDS: FERROUS SULFATE 325 MG TAB PO SCH ×2 (09:01→20:21)
[2021-10-31] MEDS: DOCUSATE SODIUM 100 MG CAP PO SCH (09:01)
[2021-10-31] MEDS: FAMOTIDINE 40 MG TABLET PO SCH (09:01)
[2021-10-31] MEDS: METOPROLOL TARTRATE 25 MG TAB PO SCH ×2 (09:02→20:21)
[2021-10-31] MEDS: GABAPENTIN 300 MG CAP PO SCH ×2 (09:02→20:21)
[2021-10-31] MEDS: ENOXAPARIN INJ 40 MG/0.4 ML SYR SQ SCH (09:07)
[2021-10-31] MEDS ORDERED: CONSULT PHARMACY ONE (09:09)
[2021-10-31] MEDS: AMPICILLIN/SULBACTAM SOD 3,000 MG in 0.9 % SODIUM CHLORIDE 100 ML IV SCH ×3 (12:43→23:40)
--- NOTE | 2021-10-31 16:22 | Hospitalist Progress Note ---
Date of Service October 31, 2021 Assessment & Plan (1) Weakness: (2) Otitis: (3) CVA (cerebral vascular accident): (4) Dyslipidemia, goal LDL below 70: (5) HTN, goal below 130/80: (6) Diabetes mellitus, type II: Plan: This is an 86yo M with a PMH of CAD, CVA, hypertension, hyperlipidemia, DM2 diet-controlled, neuropathy as per records, chronic anemia (baseline hemoglobin 12), aspiration risk as per records who presents with generalized weakness and URI. Cough, shortness, body aches as per outpatient documentation; generalized weakness Head CT with interval development of a left mastoid effusion and fluid within the left middle ear. The findings could reflect otomastoiditis Continue Unasyn for now PT/OT evaluations, conditioning History of CVA July 2021. Continue plavix, statin CAD Continue Lopressor, statin HTN Continue Lopressor HLD Continue statin DM II A1c of 6.1, September 2021 Hold metformin SSI while in-patient BSG AC HS Neuropathy Fall precautions, PT/OT evaluation Patient requests for his brother to be updated of plan of care. Mr. Brian Phan, contact #[phone]. DVT Ppx: SQ Lovenox Code status: DNR PCP: Dispo: Obs med/surg Patient seen in collaboration with Dr. Mike. Please see addendum. Admission and Anticipated Discharge Date Admission Date: October 31, 2021 Supervising Physician Co-Signing Physician Notes Patient is seen and examined at bedside. States having generalized weakness and ambulatory dysfunction. Denies any headache, change in vision, facial tenderness, earache. On exam patient is thin, frail, chronically appearing, hearing impairment present, no apparent distress, normocephalic atraumatic, normal breath sounds, clear to auscultation, S1-S2, no murmur, no pedal edema, abdomen soft, nontender, normal bowel sounds, alert, awake, oriented, grossly no focal deficits. Patient is being managed for otomastoiditis, ambulatory dysfunction. Agree with continuing Unasyn. PT OT. Plan to discharge to rehab facility as able. I personally reviewed the record. Patient is interviewed and examined at bedside. Patient's care is coordinated with Karolina Wynn PA-C. Please refer to the documentation above for details of patient's presentation and for discussion of other issues. Subjective Seem and examined in 355-1. Complaining of generalized weakness as main reason for admission. Denies any fever or chills. Denies ear pain. No CP, SOB, N/V, abdominal pain, dysuria, diarrhea or constipation. Coughing intermittently but states that is his baseline. Alert and oriented to person and place but not time. Review of Systems Review of Systems: At least ten systems reviewed and negative except as noted in the HPI. Physical Exam Physical Exam: Gen: WD/WN, NAD, sitting in bed, A&Ox2 HEENT: Hard of hearing, normocephalic, atraumatic, conjunctivae moist, sclerae anicteric, mucous membranes moist Lung: Clear to Auscultation bilaterally, no wheezes/rales/rhonchi Heart: Regular rate, regular rhythm, no murmurs, rubs, or gallops Abdomen: Soft, NT, ND +BS x 4 Extremities: no edema Skin: Warm, no rash Results & Data Results & Data ([facility]) Vital Signs (Past 12 Hours) Vital Signs Temp Pulse Pulse Resp BP BP Pulse Ox 10/31/21 15:37 36.6 C 69 16 95/60 L 96 10/31/21 08:19 36.8 C 86 17 133/66 94 10/31/21 05:30 36.8 C 86 16 161/70 H 94 10/31/21 04:55 78 17 120/59 L 95 Laboratory Results Short CBC 10/30/21 Range/Units 21:31 WBC 9.57 (4.8-10.8) K/uL Hgb 12.6 L (14.0-18.0) g/dL Hct 40.4 L (42-52) % Plt Count 321 (130-400) K/uL BMP 10/30/21 10/30/21 21:31 22:39 Sodium 138 Potassium TNP 4.1 Chloride 100 Carbon Dioxide 29 BUN 18 Creatinine 0.98 Glucose 97 Calcium 9.8 Cardiac Enzymes 10/30/21 Range/Units 23:55 Troponin I < 0.03 (0-0.04) ng/ml Liver Function 10/30/21 10/30/21 Range/Units 21:31 22:39 Total Bilirubin 0.5 (0.2-1.0) mg/dl AST TNP 17 ALT 15 (7-52) U/L Alkaline Phosphatase 91 (34-104) U/L Albumin 4.5 (3.4-5.0) gm/dl Diagnostic Findings Chest X-Ray 10/30/21 18:22 XR chest 2V PA/lateral CLINICAL HISTORY: sob. COMPARISON STUDY: 08/12/2021 TECHNIQUE: 2 views of the chest FINDINGS: Frontal and lateral radiographs of the chest demonstrate the cardiomediastinal silhouette to be within normal limits. The lungs are clear of alveolar opacities. There is no evidence for effusion bilaterally. There is no evidence for vascular congestion. There is no acute osseous pathology. IMPRESSION: No acute cardiopulmonary disease. ACT 112: Negative or not required by law. Electronically signed by: Elmer Mondragon M.D. 10/30/2021 9:[address] 10/30/21 22:38 CT OF THE HEAD WITHOUT CONTRAST CLINICAL HISTORY: h/o CVA, ?new dysarthria in last 2 weeks COMPARISON STUDY: Head CT and CTA of the head August 10, 2021. MRI of the brain August 11, 2021. CT DOSE: 614.27 mGy.cm TECHNIQUE: Helical axial images of the head were obtained without IV contrast. Automated exposure control was utilized for the study. A dose lowering technique was utilized adhering to the principles of ALARA. FINDINGS: No acute intracranial hemorrhage, midline shift or mass effect is present. Ventricular system is stable. Basal cisterns are patent. There are no extra-axial collections. White matter hypodensity suggests small vessel disease. There are no findings to suggest acute dural sinus thrombosis or acute territorial infarct. There is no calvarial fracture. Minimal ethmoid sinus mucosal thickening is present. Left mastoid air cells are largely opacified. There is fluid within the left middle ear. These findings are new since head CT of August 10, 2021. IMPRESSION: 1. No acute intracranial findings. 2. Interval development of a left mastoid effusion and fluid within the left middle ear. The findings could reflect otomastoiditis. ACT 112: Negative or not required by law. Electronically signed by: Dylon Barrientos M.D. 10/31/2021 7:48 AM Venous Doppler Study 10/31/21 03:42 RIGHT LOWER EXTREMITY VENOUS DOPPLER CLINICAL HISTORY: Right lower extremity swelling. COMPARISON STUDY: No previous studies for comparison. TECHNIQUE: Sonography of the deep venous system of the right lower extremity was performed. Compression and augmentation were evaluated. FINDINGS: The right common femoral, superficial femoral and popliteal veins were compressible. Augmentation was normal. Flow was shown within the deep calf vessels. IMPRESSION: No evidence of deep venous thrombus within the right lower extremity. ACT 112: Negative or not required by law. Electronically signed by: Dylon Barrientos M.D. 10/31/2021 6:31 AM (1) Otitis Laterality: left Qualified Code(s): H66.92 - Otitis media, unspecified, left ear
[2021-10-31] MEDS: ERYTHROMYCIN OP OINT 5 MG/GM 3.5 GM TUBE OP SCH (20:20)
[2021-11-01] MEDS: AMPICILLIN/SULBACTAM SOD 3,000 MG in 0.9 % SODIUM CHLORIDE 100 ML IV SCH ×4 (06:18→23:52)
--- NOTE | 2021-11-01 06:36 | Electrocardiogram Report ---
Test Reason : Blood Pressure : / mmHG Vent. Rate : 091 BPM Atrial Rate : 091 BPM P-R Int : 136 ms QRS Dur : 090 ms QT Int : 368 ms P-R-T Axes : 050 -45 043 degrees QTc Int : 452 ms Poor data quality, interpretation may be adversely affected Sinus rhythm Left axis deviation Abnormal ECG When compared with ECG of 12-AUG-2021 13:49, No significant change Confirmed by Floyd Reyes ([id number]) on 11/01/2021 6:36:04 AM Referred By: REFERRED SELF Confirmed By:Floyd Reyes
[2021-11-01 07:10] LABS: Basophils # (auto) 0.01 K/uL (0-0.2); Basophils % (auto) 0.2 %; Eosinophils # (auto) 0.29 K/uL (0-0.5); Eosinophils % (auto) 4.7 %; Hematocrit (blood only) 32.7 % (42-52); Hemoglobin 10.2 g/dL (14.0-18.0); Immature Granulocytes # (auto) 0.01 K/uL (0.00-0.02); Immature Granulocytes % (auto) 0.2 %; Lymphocytes # (auto) 1.98 K/uL (1.2-3.4); Lymphocytes % (auto) 32.1 %; Mean Corpuscular Hemoglobin 28.2 pg (25-34); Mean Corpuscular Hgb Conc 31.2 g/dL (32-36); Mean Corpuscular Volume 90.3 fL (80-100); Mean Platelet Volume 10.8 fL (7.4-10.4); Monocytes # (auto) 0.49 K/uL (0.11-0.59); Monocytes % (auto) 7.9 %; Neutrophils # (auto) 3.39 K/uL (1.4-6.5); Neutrophils % (auto) 54.9 %; Platelet Count 241 K/uL (130-400); RDW Coefficient of Variation 15.2 % (11.5-14.5); RDW Standard Deviation 50.5 fL (36.4-46.3); Red Blood Count 3.62 M/uL (4.7-6.1); White Blood Count 6.17 K/uL (4.8-10.8)
[2021-11-01 08:31] LABS: BUN Creatinine Ratio 21.2 (10-20); Calcium 8.8 mg/dl (8.5-10.1); Creatinine Clr Calc Pharmacy 54.3 ml/min; Est GFR (African American) 91.4 ml/min; Est GFR (Non-African American) 78.9 ml/min; Potassium 3.9 mmol/L (3.5-5.1)
[2021-11-01] MEDS: INSULIN ASPART PER UNIT SC SCH ×4 (09:30→21:54)
[2021-11-01] MEDS: FAMOTIDINE 40 MG TABLET PO SCH (09:35)
[2021-11-01] MEDS: DOCUSATE SODIUM 100 MG CAP PO SCH (09:35)
[2021-11-01] MEDS: METOPROLOL TARTRATE 25 MG TAB PO SCH ×2 (09:36→20:41)
[2021-11-01] MEDS: FERROUS SULFATE 325 MG TAB PO SCH ×2 (09:36→20:40)
[2021-11-01] MEDS: CLOPIDOGREL BISULFATE 75 MG TAB PO SCH (09:36)
[2021-11-01] MEDS: GABAPENTIN 300 MG CAP PO SCH ×2 (09:36→20:40)
[2021-11-01] MEDS: ATORVASTATIN 10 MG TAB PO SCH (09:37)
[2021-11-01] MEDS: ENOXAPARIN INJ 40 MG/0.4 ML SYR SQ SCH (09:38)
[2021-11-01 09:55] LABS: Appearance Urine Clear (Clear); Bilirubin Urine Negative (Negative); Blood Urine Negative (Negative); Color Urine Yellow; Glucose Urine UA Negative (Negative); Ketones Urine Negative (Negative); Leukocyte Esterase Urine Negative (Negative); Nitrite Urine Negative (Negative); Protein Urine Negative (Negative); Specific Gravity Urine 1.018 (1.000-1.030); Urobilinogen Urine Negative (Negative); pH Urine 6.5 (4.5-7.5)
--- NOTE | 2021-11-01 17:23 | Hospitalist Progress Note ---
Date of Service November 01, 2021 Assessment & Plan (1) Weakness: (2) Otitis: (3) CVA (cerebral vascular accident): (4) Dyslipidemia, goal LDL below 70: (5) HTN, goal below 130/80: (6) Diabetes mellitus, type II: Plan: Patient is an 86 yr male with H/O CAD, CVA, hypertension, hyperlipidemia, DM2 diet-controlled, neuropathy as per records, chronic anemia (baseline hemoglobin 12), aspiration risk as per records who presents with generalized weakness and URI. Otomastoiditis Head CT with interval development of a left mastoid effusion and fluid within the left middle ear. The findings could reflect otomastoiditis Continue Unasyn PT/OT evaluations Plan to transition to Augmentin upon discharge H/O CVA July 2021. Chronic Dysphagia Continue plavix, statin Aspiration precautions Appreciate speech therapy eval Slippery diet. CAD Continue Lopressor, statin HTN Continue Lopressor HLD Continue statin DM II A1c of 6.1, September 2021 Hold metformin SSI while in-patient BSG AC HS No strict glycemic control given advanced age Peripheral Neuropathy Fall precautions PT/OT evaluation DVT Px: SQ Lovenox Code status: DNR/DNI Admission and Anticipated Discharge Date Admission Date: November 01, 2021 Subjective Patient is seen and examined at bedside States having generalized weakness and difficulty with ambulation Offers no other complaints Reports chronic dysphagia which is unchanged Denies any chest pain, shortness of breath, dizziness, nausea, abdominal pain Review of Systems Review of Systems: All systems reviewed & are unremarkable except as noted in Subjective Physical Exam Physical Exam: Physical Exam: Vitals signs as noted above General Appearance: Thin, frail, chronically appearing, no apparent distress Head: normocephalic, Atraumatic Eyes: normal inspection, EOMI Neck: supple, Trachea midline Respiratory/Chest: Normal breath sounds, CTA, No accessory muscle use Cardiovascular: S1, S2, No murmur Abdomen/GI:Soft, Non tender, Bowel sounds present Extremities/Musculoskeletal:normal inspection, no edema Neurologic/Psych:AAOX3, grossly no focal neurological deficits Skin: normal color, warm Results & Data Results & Data ([facility]) Vital Signs (Past 12 Hours) Vital Signs Temp Pulse Resp BP Pulse Ox 11/01/21 16:07 36.7 C 71 16 145/62 H 98 11/01/21 07:30 36.5 C 67 16 96/56 L 99 Laboratory Results Short CBC 11/01/21 Range/Units 06:16 WBC 6.17 (4.8-10.8) K/uL Hgb 10.2 L (14.0-18.0) g/dL Hct 32.7 L (42-52) % Plt Count 241 (130-400) K/uL BMP 11/01/21 06:16 Sodium 139 Potassium 3.9 Chloride 105 Carbon Dioxide 27 BUN 18 Creatinine 0.85 Glucose 87 Calcium 8.8 Urine 11/01/21 Range/Units 09:41 Urine Color Yellow Urine Appearance Clear (Clear) Urine pH 6.5 (4.5-7.5) Ur Specific [place] 1.018 (1.000-1.030) Urine Protein Negative (Negative) Urine Glucose (UA) Negative (Negative) (1) Otitis Laterality: left Qualified Code(s): H66.92 - Otitis media, unspecified, left ear
[2021-11-01] MEDS: ERYTHROMYCIN OP OINT 5 MG/GM 3.5 GM TUBE OP SCH (20:40)
[2021-11-02] MEDS: AMPICILLIN/SULBACTAM SOD 3,000 MG in 0.9 % SODIUM CHLORIDE 100 ML IV SCH ×2 (05:30→11:43)
[2021-11-02] MEDS: INSULIN ASPART PER UNIT SC SCH ×4 (08:23→21:25)
[2021-11-02 09:34] LABS: Hematocrit (blood only) 33.9 % (42-52); Hemoglobin 10.5 g/dL (14.0-18.0)
[2021-11-02] MEDS: CLOPIDOGREL BISULFATE 75 MG TAB PO SCH (09:54)
[2021-11-02] MEDS: FERROUS SULFATE 325 MG TAB PO SCH ×2 (09:54→19:59)
[2021-11-02] MEDS: GABAPENTIN 300 MG CAP PO SCH ×2 (09:54→19:59)
[2021-11-02] MEDS: ATORVASTATIN 10 MG TAB PO SCH (09:54)
[2021-11-02] MEDS: FAMOTIDINE 40 MG TABLET PO SCH (09:54)
[2021-11-02] MEDS: DOCUSATE SODIUM 100 MG CAP PO SCH (09:54)
[2021-11-02] MEDS: METOPROLOL TARTRATE 25 MG TAB PO SCH ×2 (09:54→19:59)
[2021-11-02] MEDS: ENOXAPARIN INJ 40 MG/0.4 ML SYR SQ SCH (09:55)
[2021-11-02 09:56] LABS: BUN Creatinine Ratio 16.5 (10-20); Calcium 8.9 mg/dl (8.5-10.1); Creatinine Clr Calc Pharmacy 58.4 ml/min; Est GFR (African American) 94.2 ml/min; Est GFR (Non-African American) 81.3 ml/min; Potassium 3.9 mmol/L (3.5-5.1)
--- NOTE | 2021-11-02 17:33 | Hospitalist Progress Note ---
Date of Service November 02, 2021 Assessment & Plan (1) Weakness: (2) Otitis: (3) CVA (cerebral vascular accident): (4) Dyslipidemia, goal LDL below 70: (5) HTN, goal below 130/80: (6) Diabetes mellitus, type II: Plan: Patient is an 86 yr male with H/O CAD, CVA, hypertension, hyperlipidemia, DM2 diet-controlled, neuropathy as per records, chronic anemia (baseline hemoglobin 12), aspiration risk as per records who presents with generalized weakness and URI. Otomastoiditis Head CT with interval development of a left mastoid effusion and fluid within the left middle ear. The findings could reflect otomastoiditis Continue Unasyn>> Transition to Augmentin tomorrow PT/OT evaluations Asymptomatic H/O CVA July 2021. Chronic Dysphagia Continue plavix, statin Aspiration precautions Appreciate speech therapy eval Slippery diet. Generalized weakness Ambulatory dysfunction Continue PT/OT Needs SNF placement CAD Continue Lopressor, statin HTN Continue Lopressor HLD Continue statin DM II A1c of 6.1, September 2021 Hold metformin SSI while in-patient BSG AC HS No strict glycemic control given advanced age Peripheral Neuropathy Fall precautions PT/OT evaluation DVT Px: SQ Lovenox Code status: DNR/DNI Disposition SNF when arranged Admission and Anticipated Discharge Date Admission Date: November 01, 2021 Subjective Patient is seen and examined at bedside Continue to have generalized weakness and difficulty with ambulation PT recommends SNF placement Reports chronic dysphagia which is unchanged Denies any chest pain, shortness of breath, dizziness, nausea, abdominal pain Review of Systems Review of Systems: All systems reviewed & are unremarkable except as noted in Subjective Physical Exam Physical Exam: Physical Exam: Vitals signs as noted above General Appearance: Thin, frail, chronically appearing, no apparent distress Head: normocephalic, Atraumatic Eyes: normal inspection, EOMI Neck: supple, Trachea midline Respiratory/Chest: Normal breath sounds, CTA, No accessory muscle use Cardiovascular: S1, S2, No murmur Abdomen/GI:Soft, Non tender, Bowel sounds present Extremities/Musculoskeletal:normal inspection, no edema Neurologic/Psych:AAOX3, grossly no focal neurological deficits Skin: normal color, warm Results & Data Results & Data ([facility]) Vital Signs (Past 12 Hours) Vital Signs Temp Pulse Resp BP Pulse Ox 11/02/21 16:00 36.5 C 69 18 121/63 97 11/02/21 07:30 36.3 C L 65 18 117/68 95 Laboratory Results Short CBC 11/02/21 Range/Units 08:38 Hgb 10.5 L (14.0-18.0) g/dL Hct 33.9 L (42-52) % BMP 11/02/21 08:38 Sodium 140 Potassium 3.9 Chloride 106 Carbon Dioxide 29 BUN 13 Creatinine 0.79 Glucose 112 H Calcium 8.9 (1) Otitis Laterality: left Qualified Code(s): H66.92 - Otitis media, unspecified, left ear
[2021-11-02] MEDS: ERYTHROMYCIN OP OINT 5 MG/GM 3.5 GM TUBE OP SCH (19:59)
[2021-11-03 06:40] LABS: Hematocrit (blood only) 33.3 % (42-52); Hemoglobin 10.1 g/dL (14.0-18.0); Mean Corpuscular Hemoglobin 27.3 pg (25-34); Mean Corpuscular Hgb Conc 30.3 g/dL (32-36); Mean Platelet Volume 10.3 fL (7.4-10.4); Platelet Count 238 K/uL (130-400); RDW Coefficient of Variation 14.8 % (11.5-14.5); RDW Standard Deviation 48.9 fL (36.4-46.3); White Blood Count 4.74 K/uL (4.8-10.8)
[2021-11-03 06:57] LABS: BUN Creatinine Ratio 15.5 (10-20); Calcium 8.8 mg/dl (8.5-10.1); Creatinine Clr Calc Pharmacy 54.9 ml/min; Est GFR (African American) 91.9 ml/min; Est GFR (Non-African American) 79.3 ml/min; Potassium 3.9 mmol/L (3.5-5.1)
[2021-11-03] MEDS: FERROUS SULFATE 325 MG TAB PO SCH ×2 (08:40→20:31)
[2021-11-03] MEDS: DOCUSATE SODIUM 100 MG CAP PO SCH (08:40)
[2021-11-03] MEDS: ATORVASTATIN 10 MG TAB PO SCH (08:40)
[2021-11-03] MEDS: METOPROLOL TARTRATE 25 MG TAB PO SCH ×2 (08:40→20:31)
[2021-11-03] MEDS: FAMOTIDINE 40 MG TABLET PO SCH (08:40)
[2021-11-03] MEDS: CLOPIDOGREL BISULFATE 75 MG TAB PO SCH (08:40)
[2021-11-03] MEDS: AMOXICILLIN/CLAVULANATE 875 MG TAB PO SCH ×2 (08:41→17:37)
[2021-11-03] MEDS: GABAPENTIN 300 MG CAP PO SCH ×2 (08:41→20:32)
[2021-11-03] MEDS: ENOXAPARIN INJ 40 MG/0.4 ML SYR SQ SCH (08:41)
[2021-11-03] MEDS: INSULIN ASPART PER UNIT SC SCH ×4 (08:50→21:20)
--- NOTE | 2021-11-03 16:43 | Hospitalist Progress Note ---
Date of Service November 03, 2021 Assessment & Plan (1) Weakness: Plan: Evaluated by PT, recommending SNF (2) Otitis: Plan: -s/p Unasyn here, switched to Augmentin today -will order debrox ear drops, saline nasal spray (3) CVA (cerebral vascular accident): Plan: history of. with residual dysarthria -continue plavix, statin (4) Dyslipidemia, goal LDL below 70: (5) HTN, goal below 130/80: (6) Diabetes mellitus, type II: Plan: DM II A1c of 6.1, September 2021 Hold metformin SSI while in-patient BSG AC HS No strict glycemic control given advanced age Peripheral Neuropathy Fall precautions PT/OT evaluation DVT Px: SQ Lovenox Code status: DNR/DNI Disposition Patient is medically stable for discharge pending SNF placement Admission and Anticipated Discharge Date Admission Date: November 01, 2021 Subjective No issues overnight. Remains afebrile. Patient with no complaints but appears to be somewhat poor historian Physical Exam Physical Exam: Appears chronically ill, no acute distress ENMT: nares with thick discharge (left >right), left ear with cerumen. Respiratory: breathing comfortably on room air, no wheezing/rhonchi Cardiovascular: regular rate and rhythm, no murmurs/rubs Gastrointestinal (Abdomen): soft, non tender Musculoskeletal: no edema Neurologic: awake, chronic dysarthria, hard of hearing Results & Data Results & Data ([facility]) Vital Signs (Past 12 Hours) Vital Signs Temp Pulse Resp BP Pulse Ox 11/03/21 15:38 36.6 C 77 16 109/63 98 11/03/21 07:52 36.8 C 70 16 139/76 94 Laboratory Results Short CBC 11/03/21 Range/Units 06:18 WBC 4.74 L (4.8-10.8) K/uL Hgb 10.1 L (14.0-18.0) g/dL Hct 33.3 L (42-52) % Plt Count 238 (130-400) K/uL BMP 11/03/21 06:18 Sodium 139 Potassium 3.9 Chloride 105 Carbon Dioxide 29 BUN 13 Creatinine 0.84 Glucose 92 Calcium 8.8 Medications Administered Current Inpatient Medications Acetaminophen (Acetaminophen 325 Mg Tab) 650 mg PO Q4H PRN PRN Reason: pain/fever Stop: 11/30/21 05:47 Amoxicillin/Clavulanate Potassium (Amoxicillin/Clavulanate 875 Mg Tab) 1 tab PO BIDM TAN Stop: 11/13/21 07:59 Last Admin: 11/03/21 08:41 Dose: 1 tab Documented by: Atorvastatin Calcium (Atorvastatin 10 Mg Tab) 10 mg PO DAILY TAN Stop: 11/30/21 08:59 Last Admin: 11/03/21 08:40 Dose: 10 mg Documented by: Clopidogrel Bisulfate (Clopidogrel Bisulfate 75 Mg Tab) 75 mg PO DAILY TAN Stop: 11/30/21 08:59 Last Admin: 11/03/21 08:40 Dose: 75 mg Documented by: Dextrose (Dextrose 50% 50 Ml Syringe) 25 - 50 ml IV UD PRN; Protocol PRN Reason: Hypoglycemia Protocol Stop: 11/30/21 05:47 Docusate Sodium (Docusate Sodium 100 Mg Cap) 100 mg PO DAILY TAN Stop: 11/30/21 08:59 Last Admin: 11/03/21 08:40 Dose: 100 mg Documented by: Enoxaparin Sodium (Enoxaparin Inj 40 Mg/0.4 Ml Syr) 40 mg SQ QAM TAN Stop: 11/30/21 08:59 Last Admin: 11/03/21 08:41 Dose: 40 mg Documented by: Erythromycin (Erythromycin Op Oint 5 Mg/Gm 3.5 Gm Tube) 1 appln OP HS TAN Stop: 11/10/21 20:59 Last Admin: 11/02/21 19:59 Dose: 1 appln Documented by: Famotidine (Famotidine 40 Mg Tablet) 40 mg PO DAILY TAN Stop: 11/30/21 08:59 Last Admin: 11/03/21 08:40 Dose: 40 mg Documented by: Ferrous Sulfate (Ferrous Sulfate 325 Mg Tab) 325 mg PO BID TAN Stop: 11/30/21 08:59 Last Admin: 11/03/21 08:40 Dose: 325 mg Documented by: Gabapentin (Gabapentin 300 Mg Cap) 300 mg PO BID TAN Stop: 11/30/21 08:59 Last Admin: 11/03/21 08:41 Dose: 300 mg Documented by: Glucagon (Glucagon For Inj 1 Mg Vial) 1 mg SQ UD PRN; Protocol PRN Reason: Hypoglycemia Protocol Stop: 11/30/21 05:47 Glucose (Glucose 10 Tabs/Tube) 4 - 8 tabs PO UD PRN; Protocol PRN Reason: Hypoglycemia Protocol Stop: 11/30/21 05:47 Glucose (Glucose 40% Gel 15 Gm Tube) 15 - 30 gm PO UD PRN; Protocol PRN Reason: Hypoglycemia Protocol Stop: 11/30/21 05:47 Insulin Aspart (Insulin Aspart Per Unit) 0 units SC ACHS TAN Stop: 11/30/21 05:47 Last Admin: 11/03/21 12:16 Dose: Not Given Documented by: Metoprolol Tartrate (Metoprolol Tartrate 25 Mg Tab) 12.5 mg PO BID TAN Stop: 11/30/21 08:59 Last Admin: 11/03/21 08:40 Dose: 12.5 mg Documented by: Miscellaneous (Carbohydrates For Hypoglycemia ) 15 - 30 gm PO UD PRN PRN Reason: Hypoglycemia Protocol Stop: 11/30/21 05:47 Saccharomyces Boulardii (Saccharomyces Boulardii 250 Mg Cap) 250 mg PO DAILY [facility] Stop: 12/04/21 08:59 (1) Otitis Laterality: left Qualified Code(s): H66.92 - Otitis media, unspecified, left ear
[2021-11-03] MEDS: ERYTHROMYCIN OP OINT 5 MG/GM 3.5 GM TUBE OP SCH (20:32)
[2021-11-03] MEDS: SODIUM CHLORIDE 0.65% NA SOLN 45 ML (OCEAN) SCH (20:43)
[2021-11-04] MEDS: INSULIN ASPART PER UNIT SC SCH ×4 (08:30→21:38)
[2021-11-04] MEDS: SODIUM CHLORIDE 0.65% NA SOLN 45 ML (OCEAN) SCH ×2 (08:31→20:26)
[2021-11-04] MEDS: CARBAMIDE PEROXIDE 6.5% 15 ML BTL OTL SCH (08:31)
[2021-11-04] MEDS: SACCHAROMYCES BOULARDII 250 MG CAP PO SCH (08:32)
[2021-11-04] MEDS: GABAPENTIN 300 MG CAP PO SCH ×2 (08:32→20:21)
[2021-11-04] MEDS: FAMOTIDINE 40 MG TABLET PO SCH (08:32)
[2021-11-04] MEDS: DOCUSATE SODIUM 100 MG CAP PO SCH (08:32)
[2021-11-04] MEDS: FERROUS SULFATE 325 MG TAB PO SCH ×2 (08:32→20:21)
[2021-11-04] MEDS: CLOPIDOGREL BISULFATE 75 MG TAB PO SCH (08:32)
[2021-11-04] MEDS: ATORVASTATIN 10 MG TAB PO SCH (08:32)
[2021-11-04] MEDS: ENOXAPARIN INJ 40 MG/0.4 ML SYR SQ SCH (08:32)
[2021-11-04] MEDS: AMOXICILLIN/CLAVULANATE 875 MG TAB PO SCH ×2 (08:32→16:39)
[2021-11-04] MEDS: METOPROLOL TARTRATE 25 MG TAB PO SCH ×2 (08:32→20:21)
--- NOTE | 2021-11-04 15:56 | Hospitalist Progress Note ---
Date of Service November 04, 2021 Assessment & Plan (1) Weakness: Plan: Evaluated by PT, recommending SNF (2) Otitis: Plan: -s/p Unasyn 10/31 through 11/02, Augmentin since 11/03 -debrox ear drops, saline nasal spray (3) CVA (cerebral vascular accident): Plan: -history of, with residual dysarthria -continue plavix, statin (4) HTN, goal below 130/80: Plan: BP controlled, currently not on any antihypertensives (5) Diabetes mellitus, type II: Plan: A1c of 6.1, September 2021 Hold metformin SSI while in-patient No strict glycemic control given advanced age Peripheral Neuropathy Continue gabapentin DVT Px: SQ Lovenox Disposition Patient is medically stable for discharge. Likely discharge to [facility]. Admission and Anticipated Discharge Date Admission Date: November 01, 2021 Supervising Physician Co-Signing Physician Notes Patient was seen and evaluated independently. Chart was reviewed. Case was discussed with GREGORY. Agree with assessment and plan as above Subjective Patient seen and examined. Follow-up for generalized weakness, ambulatory dysfunction, otitis media. Patient reports feeling well. Eager to be discharged. No chest pain or shortness of breath. Good appetite. Denies abdominal pain or nausea. Review of Systems Review of Systems: ROS per HPI, all other systems reviewed and negative Physical Exam Constitutional: WD/WN, vitals as above ENMT: Nose: + nasal discharge Respiratory: normal respiratory effort, lungs clear to auscultation Cardiovascular: Rate/Rhythm: regular rate and regular rhythm Vessels: normal peripheral pulses Extremities: no edema Gastrointestinal (Abdomen): Percussion/Palpation: abdomen soft; abdomen nontender Skin: no rashes, warm and dry Neurologic: no focal motor deficits Psychiatric: A+Ox3, euthymic affect Results & Data Results & Data ([facility]) Vital Signs (Past 12 Hours) Vital Signs Temp Pulse Resp BP Pulse Ox 11/04/21 14:53 36.4 C L 75 18 111/66 97 11/04/21 07:37 36.8 C 69 18 123/65 95 (1) Otitis Laterality: left Qualified Code(s): H66.92 - Otitis media, unspecified, left ear
[2021-11-04] MEDS: ERYTHROMYCIN OP OINT 5 MG/GM 3.5 GM TUBE OP SCH (20:21)
[2021-11-05] MEDS: SACCHAROMYCES BOULARDII 250 MG CAP PO SCH (08:13)
[2021-11-05] MEDS: DOCUSATE SODIUM 100 MG CAP PO SCH (08:13)
[2021-11-05] MEDS: METOPROLOL TARTRATE 25 MG TAB PO SCH (08:13)
[2021-11-05] MEDS: FAMOTIDINE 40 MG TABLET PO SCH (08:13)
[2021-11-05] MEDS: CLOPIDOGREL BISULFATE 75 MG TAB PO SCH (08:13)
[2021-11-05] MEDS: AMOXICILLIN/CLAVULANATE 875 MG TAB PO SCH (08:13)
[2021-11-05] MEDS: GABAPENTIN 300 MG CAP PO SCH (08:13)
[2021-11-05] MEDS: ATORVASTATIN 10 MG TAB PO SCH (08:13)
[2021-11-05] MEDS: FERROUS SULFATE 325 MG TAB PO SCH (08:13)
[2021-11-05] MEDS: CARBAMIDE PEROXIDE 6.5% 15 ML BTL OTL SCH (08:14)
[2021-11-05] MEDS: INSULIN ASPART PER UNIT SC SCH ×2 (08:14→12:09)
[2021-11-05] MEDS: SODIUM CHLORIDE 0.65% NA SOLN 45 ML (OCEAN) SCH (08:14)
--- NOTE | 2021-11-05 09:37 | Discharge Summary ---
Date of Service November 05, 2021 Admission HPI Per Admitting Provider History obtained from patient and records. Patient is a fair historian. Medical history significant for CAD, CVA, hypertension, hyperlipidemia, DM2 diet-controlled, neuropathy as per records, chronic anemia (baseline hemoglobin 12), aspiration risk as per records. Last confinement July 2021 for acute CVA. Patient presented with dysarthria symptoms. Patient discharged on antiplatelet Rx. 2 days history of generalized weakness and upper respiratory infection. Cough, shortness, body aches as per outpatient documentation. Patient too weak to walk. Denies headache symptoms. Patient brought to ER for evaluation. Unasyn given for otitis media. 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 Admission Exam Per Admitting Provider GENERAL: Slightly hard of hearing, chronic dysarthria, no respiratory distress SKIN: Pallor, warm HEENT: Partial alopecia, pale palpebral conjunctivae, no ptosis, facial asymmetry, dry buccal mucosa; yellow discharge noted from left ear canal, TM not visualized NECK : Supple, no tenderness CHEST : CTA, no tenderness HEART : RRR, no obvious murmurs ABDOMEN: Some distention, nontender EXTREMITIES :RLE swelling, no LE tenderness, no other conspicuous deformities noted NEUROLOGIC : Coherent, slightly hard of hearing, chronic dysarthria, gait and stance not assessed Principal Diagnosis Ambulatory Dysfunction Otitis Media Discharge Exam Constitutional WD/WN, vitals as above no acute distress sitting up in the chair ENMT Nose: + nasal discharge Respiratory normal respiratory effort; no respiratory distress Auscultation: + diminished lung sounds (BL bases) Cardiovascular Rate/Rhythm: regular rate and regular rhythm Vessels: normal peripheral pulses Extremities: no edema Gastrointestinal (Abdomen) Percussion/Palpation: abdomen soft; abdomen nontender Skin no rashes, warm and dry Neurologic no focal motor deficits Speech / Cognition: + abnormal speech (chronic dysarthria) Psychiatric A+Ox3, euthymic affect Discharge Data Allergies Allergy/AdvReac Type Severity Reaction Status Date / Time Iodinated Contrast Media Allergy Mild warm Verified 10/31/21 06:00 feeling carbamazepine Allergy Unknown Unknown Verified 10/30/21 22:52 lisinopril AdvReac Mild Hypotension Verified 10/31/21 06:00 Ordered Studies Laboratory Results WBC 4.74 K/uL (4.8-10.8) L 11/03/21 06:18 RBC 3.70 M/uL (4.7-6.1) L 11/03/21 06:18 Hgb 10.1 g/dL (14.0-18.0) L 11/03/21 06:18 Hct 33.3 % (42-52) L 11/03/21 06:18 MCV 90.0 fL (80-100) 11/03/21 06:18 MCH 27.3 pg (25-34) 11/03/21 06:18 MCHC 30.3 g/dL (32-36) L 11/03/21 06:18 RDW Std Deviation 48.9 fL (36.4-46.3) H 11/03/21 06:18 RDW Coeff of Carmen 14.8 % (11.5-14.5) H 11/03/21 06:18 Plt Count 238 K/uL (130-400) 11/03/21 06:18 MPV 10.3 fL (7.4-10.4) 11/03/21 06:18 Immature Gran % (Auto) 0.2 % 11/01/21 06:16 Neut % (Auto) 54.9 % 11/01/21 06:16 Lymph % (Auto) 32.1 % 11/01/21 06:16 [place] % (Auto) 7.9 % 11/01/21 06:16 Eos % (Auto) 4.7 % 11/01/21 06:16 Baso % (Auto) 0.2 % 11/01/21 06:16 Neut # (Auto) 3.39 K/uL (1.4-6.5) 11/01/21 06:16 Lymph # (Auto) 1.98 K/uL (1.2-3.4) 11/01/21 06:16 [place] # (Auto) 0.49 K/uL (0.11-0.59) 11/01/21 06:16 Eos # (Auto) 0.29 K/uL (0-0.5) 11/01/21 06:16 Baso # (Auto) 0.01 K/uL (0-0.2) 11/01/21 06:16 Immature Gran # (Auto) 0.01 K/uL (0.00-0.02) 11/01/21 06:16 Sodium 139 mmol/L (136-145) 11/03/21 06:18 Potassium 3.9 mmol/L (3.5-5.1) 11/03/21 06:18 Chloride 105 mmol/L (98-107) 11/03/21 06:18 Carbon Dioxide 29 mmol/L (21-32) 11/03/21 06:18 Anion Gap 5 (3-11) 11/03/21 06:18 BUN 13 mg/dl (6-23) 11/03/21 06:18 Creatinine 0.84 mg/dl (0.6-1.4) 11/03/21 06:18 Est Cr Clr Drug Dosing 54.9 ml/min 11/03/21 06:18 Est GFR ( Amer) 91.9 ml/min 11/03/21 06:18 Est GFR (Non-Af Amer) 79.3 ml/min 11/03/21 06:18 BUN/Creatinine Ratio 15.5 (10-20) 11/03/21 06:18 Glucose 92 mg/dl (70-99(Fasting)) 11/03/21 06:18 POC Glucose 107 mg/dl (70-99) H 11/05/21 08:04 Calcium 8.8 mg/dl (8.5-10.1) 11/03/21 06:18 Magnesium 1.7 mg/dl (1.7-2.4) 10/30/21 23:55 Total Bilirubin 0.5 mg/dl (0.2-1.0) 10/30/21 21:31 AST 17 U/L (13-39) 10/30/21 22:39 ALT 15 U/L (7-52) 10/30/21 21:31 Alkaline Phosphatase 91 U/L (34-104) 10/30/21 21:31 Troponin I < 0.03 ng/ml (0-0.04) 10/30/21 23:55 Total Protein 8.8 gm/dl (6.0-8.3) H 10/30/21 21:31 Albumin 4.5 gm/dl (3.4-5.0) 10/30/21 21:31 Globulin 4.3 gm/dl (2.5-4.0) H 10/30/21 21:31 Albumin/Globulin Ratio 1.0 (0.9-2) 10/30/21 21:31 TSH 1.715 uIu/ml (0.300-4.500) 10/30/21 23:55 Urine Color Yellow 11/01/21 09:41 Urine Appearance Clear (Clear) 11/01/21 09:41 Urine pH 6.5 (4.5-7.5) 11/01/21 09:41 Ur Specific [place] 1.018 (1.000-1.030) 11/01/21 09:41 Urine Protein Negative (Negative) 11/01/21 09:41 Urine Glucose (UA) Negative (Negative) 11/01/21 09:41 Urine Ketones Negative (Negative) 11/01/21 09:41 Urine Blood Negative (Negative) 11/01/21 09:41 Urine Nitrite Negative (Negative) 11/01/21 09:41 Urine Bilirubin Negative (Negative) 11/01/21 09:41 Urine Urobilinogen Negative (Negative) 11/01/21 09:41 Ur Leukocyte Esterase Negative (Negative) 11/01/21 09:41 Influ A Molecular Assay Negative (Negative) 10/30/21 18:21 Influ B Molecular Assay Negative (Negative) 10/30/21 18:21 SARS-CoV-2 RNA (SHILA) Negative (Negative) 11/04/21 15:25 SARS-CoV-2, RNA, NAAT NEGATIVE (NEGATIVE) 10/30/21 18:21 Impressions Chest X-Ray 10/30/21 18:22 XR chest 2V PA/lateral CLINICAL HISTORY: sob. COMPARISON STUDY: 08/12/2021 TECHNIQUE: 2 views of the chest FINDINGS: Frontal and lateral radiographs of the chest demonstrate the cardiomediastinal silhouette to be within normal limits. The lungs are clear of alveolar opacities. There is no evidence for effusion bilaterally. There is no evidence for vascular congestion. There is no acute osseous pathology. IMPRESSION: No acute cardiopulmonary disease. ACT 112: Negative or not required by law. Electronically signed by: Elmer Mondragon M.D. 10/30/2021 9:[address] 10/30/21 22:38 CT OF THE HEAD WITHOUT CONTRAST CLINICAL HISTORY: h/o CVA, ?new dysarthria in last 2 weeks COMPARISON STUDY: Head CT and CTA of the head August 10, 2021. MRI of the bra in August 11, 2021. CT DOSE: 614.27 mGy.cm TECHNIQUE: Helical axial images of the head were obtained without IV contrast. Automated exposure control was utilized for the study. A dose lowering technique was utilized adhering to the principles of ALARA. FINDINGS: No acute intracranial hemorrhage, midline shift or mass effect is present. Ventricular system is stable. Basal cisterns are patent. There are no extra-axial collections. White matter hypodensity suggests small vessel disease. There are no findings to suggest acute dural sinus thrombosis or acute territorial infarct. There is no calvarial fracture. Minimal ethmoid sinus mucosal thickening is present. Left mastoid air cells are largely opacified. There is fluid within the left middle ear. These findings are new since head CT of August 10, 2021. IMPRESSION: 1. No acute intracranial findings. 2. Interval development of a left mastoid effusion and fluid within the left middle ear. The findings could reflect otomastoiditis. ACT 112: Negative or not required by law. Electronically signed by: Dylon Barrientos M.D. 10/31/2021 7:48 AM Venous Doppler Study 10/31/21 03:42 RIGHT LOWER EXTREMITY VENOUS DOPPLER CLINICAL HISTORY: Right lower extremity swelling. COMPARISON STUDY: No previous studies for comparison. TECHNIQUE: Sonography of the deep venous system of the right lower extremity was performed. Compression and augmentation were evaluated. FINDINGS: The right common femoral, superficial femoral and popliteal veins were compressible. Augmentation was normal. Flow was shown within the deep calf vessels. IMPRESSION: No evidence of deep venous thrombus within the right lower extremity. ACT 112: Negative or not required by law. Electronically signed by: Dylon Barrientos M.D. 10/31/2021 6:31 AM Hospital Course (1) Weakness: Evaluated by PT, recommending SNF (2) Otitis: -s/p Unasyn 10/31 - 11/02, Augmentin 11/03 - current. Continue through 11/08 to complete course. -debrox ear drops, saline nasal spray given for supportive care (3) CVA (cerebral vascular accident): -history of, with residual dysarthria -continue plavix, statin (4) HTN, goal below 130/80: BP controlled, currently not on any antihypertensives (5) Diabetes mellitus, type II: A1c of 6.1, September 2021 Received Novolog per protocol while hospitalized. Resume metformin at discharge. Peripheral Neuropathy Continue gabapentin Total Time Total Time Spent Total Time Spent (In Minutes): 35 Discharge Plan Discharge Items Patient Disposition: Transfer [facility] Reason For Visit: Generalized Weakness Discharge Diagnosis: Ambulatory Dysfunction Otitis Media Activity: As commented below Activity Comment: as tolerated, as per PT/OT Non-emergency contact: Primary Care Provider Call non-emergency contact if: you have any medication questions, your symptoms worsen, your pain is not controlled and you have a fever Follow-up/Referrals: Jasmine Elizabeth DO [Primary Care Provider] - Diet: Heart Healthy Addtl Attending Provider Instructions: Patient presented with generalized weakness and upper respiratory symptoms. Diagnosed with otitis media. Started on IV Unasyn and transitioned to Augmentin which is to be continued until 11/08 to complete a 7 day course. Ear drops and nasal spray also added for supportive care. Pending Studies at Discharge: No Stand-Alone Forms: My [facility] Skilled Items Patient informed of condition?: Yes DNR: Yes Discharge Level of Care: Skilled Communicable Disease: No Discharge Prognosis: Stable Lines: None Urinary Catheter: No Medications and DC Order Prescriptions: New Ear Drops (carbamide peroxide) 6.5 % Drops 2 drp OTL DAILY Qty: 15 RF: 0 Saline Mist 0.65 % Aerosol,[place] 1 spray NA BID Qty: 44 RF: 0 amoxicillin-pot clavulanate 875-125 mg tablet 1 tab PO Q12H Qty: 7 RF: 0 Continued furosemide 40 mg tablet 40 mg PO DAILY PRN (Reason: leg swelling) RF: 0 ketoconazole 2 % shampoo 1 applic TOPICAL UD RF: 0 ketoconazole 2 % cream 1 applic TOPICAL BID PRN (Reason: FLARE UPS) RF: 0 ergocalciferol (vitamin D2) 50,000 unit Tablet 50,000 unit PO WK RF: 0 silver sulfadiazine [Silvadene] 1 % Cream 1 applic TOPICAL DAILY RF: 0 atorvastatin 10 mg tablet 10 mg PO DAILY Qty: 7 RF: 0 famotidine 40 mg tablet 40 mg PO DAILY Qty: 7 RF: 0 clopidogrel 75 mg tablet 75 mg PO DAILY Qty: 7 RF: 0 erythromycin 5 mg/gram (0.5 %) Ointment 1 applic OPHTHALMIC (EYE) HS Qty: 1 RF: 0 ferrous sulfate 325 mg (65 mg iron) Tablet 325 mg PO AMHS Qty: 14 RF: 0 metformin 1,000 mg tablet 1,000 mg PO BID Qty: 14 RF: 0 docusate sodium [Colace] 100 mg Capsule 100 mg PO DAILY Qty: 7 RF: 0 gabapentin 300 mg capsule 300 mg PO BID Qty: 14 RF: 0 metoprolol tartrate 25 mg tablet 12.5 mg PO BID Qty: 14 RF: 0 Discharge Orders: Discharge Order (Routine); Ordered 11/05/21 Ordered By: Maranda Bass Admission Data Admit Date/Time: 11/01/21 13:01 Attending Provider: Kurtis Caceres Admit Provider: Kwame Mckenzie Primary Care Provider: Jasmine Elizabeth Other Providers: Karolina Wynn ; [facility] ; Judie White [facility] [place] ; [facility] ; Melvin Mike Other Interventions: Discharge Summary Assessment (RN) Last Done: 11/05/21 11:04 Supervising Physician Co-Signing Physician Notes Patient was seen and evaluated independently. Chart was reviewed. Case was discussed with GREGORY. Agree with assessment and plan as above
[2021-11-05] MEDS: ENOXAPARIN INJ 40 MG/0.4 ML SYR SQ SCH (10:17)
--- NOTE | 2021-11-12 15:16 | Coding Query ---
To promote full compliance with coding requirements relating to patient care, provider participation is requested in all cases of lead recreation assistant uncertainty. Please assist us with the question(s) below: Coding Question(s): The diagnosis(es) below was documented in the (lead recreation assistant fill out source document ie H&P, progress notes, etc.) then subsequently fell off all further documentation. Please indicate if it is still a possible diagnosis or ruled out. Physician's Response(s): MASTOIDITIS ( X ) Diagnosed and POA ( ) Diagnosed and not POA ( ) Ruled out ( ) Other (please specify) Thank you for your assistance, Olivia Figueroa - Sander Setter RICHARD
== END 2021-11-05 13:06 | DRG 153 ==
LOC: 3W 18:17 → ED 18:17 → 3W 10-31 04:55 → SUATTDRO 11-01 13:01